=== PATIENT | male | born 1945 | race Caucasian/White ===

== ENCOUNTER → 2016-11-27 | Outpatient (CLI) | payer BC ==
[2016-03-07 13:18] VITALS: BP 108/67; PULSE 80
[~2016-11-27] MED LIST: ASPI-435 PO; CALC-279 PO; CHOL200010 PO; CLC100X PO; LEUP1INJ15 IM; PROT1POW7 PO; PSYL55.43 PO
[2016-11-27 13:45] VITALS: BP 137/80; PULSE 71; TEMP 36.7; O2SAT 92
--- NOTE | 2016-11-27 15:22 | Radiation Oncology Follow-Up ---
Radiation Oncology Follow-Up Date of Visit Nov 27, 2016. Reason For Visit Six-month follow-up Radiation Completion Date Salvage - 01/31/16 Diagnosis (1) MALIGN NEOPL PROSTATE Status: Resolved Onset Date: 10/30/2012 Location: both lobes of the prostate Histology Subtype: adenocarcinoma Stage: lll Permanent Comment: Rising PSA. Pretreatment PSA 6.09 Status post ultrasound-guided biopsies biopsy stage T2c Angelito grade 3+3 Status post retropubic radical prostatectomy 03/23/2013 Pathologic stage pT3a NXM0 Angelito grade 4+3 Hormone suppression for 6 months Status post completion of salvage radiation therapy made 2015 received 7020 cGy Last Edited By: Daniela Jasso on Nov 27, 2016 15:21 History of Present Illness Mr. Hammond is a 70-year-old gentleman who was noted to have a rise in PSA on July 15, 2012. His PSA value was 5.65. He also has a history of enlarged prostate gland and therefore the PSA was repeated on August 18, 2012 and remained elevated at 6.09. The patient was sent for evaluation to Dr. Ángel Florian. There was no family history of prostate cancer. Because of the rise in PSA a biopsy was recommended. On October 30, 2012 Dr. Florian proceeded with ultrasound-guided biopsies. A total of 20 biopsies were taken. 3 biopsies from the left base, left apex and the single biopsy from the left anterior was negative for malignancy. Three biopsies were taken from the left midgland, 2 of which were positive for adenocarcinoma, Angelito grade 3 + 3, involving 10% and 25% of the core length respectfully. No perineural or lymphovascular invasion was identified. Three biopsies from the right base and right mid and one biopsy from the right anterior were negative for malignancy. Three biopsies from the right apex were taken, 2 of which were positive for adenocarcinoma, Speer grade 3 + 3, involving 10% and 10% respectfully with no perineural or lymphovascular invasion identified. Two foci of atypical prostatic acini were noted within biopsies from the left mid and right apex. Remaining biopsies showed benign prostate tissue. Case [id number]. The patient returned to discuss these findings with Dr. Florian. His estimated gland volume was 45 grams. Staging bone scan was performed on November 10, 2012. Areas of uptake were noted but were felt to be degenerative with no evidence of skeletal metastatic disease. Dr. Florian arranged for this patient to discuss treatment options with Dr. Barron discussing robotic radical prostatectomy and asked us to see the patient in referral to discuss the role of radiation. Ultimately he made a decision to undergo prostatectomy. He had a radical retropubic prostatectomy 03/23/2013. This revealed adenocarcinoma with a Angelito primary pattern of 4 and secondary pattern of 3. The portion of prosthetic involvement was 7%. The greatest dimension was 15 mm. There was focal extraprostatic extension. This is located at the right posterior lateral area. Margins were uninvolved. No lymphovascular invasion. There was perineural invasion. Stage [id number]. He has continued follow-up with Dr. Grady in [facility]. Follow-up PSAs have been through Dr. Leach's office. His PSA 10/19/2013 was less than 0.13. PSA 03/19/2014 less than 0.010. PSA 08/25/2014 was 0.025. The PSA on 12/28/2014 was 0.032. His PSA on 02/21/2015 was 0.064. The most recent PSA was 09/06/2015 and was 0.088. With the slow rise in PSA he has been referred back to our office to discuss salvage radiation therapy. He completed radiation therapy 01/31/2016 received 7020 cGy. Interim History He's been doing well over the past 6 months from urinary standpoint. He gave an AUA score of 3.5. He completed expanded prostate cancer index composite for clinical practice and gave a score of 2 of 12 and urinary incontinence symptoms. He gave a score of 0 12 in urinary irritation symptoms. He gave a score of 0 12 bowel symptoms. He gave a score of 3 of 12 and sexual symptoms. He gave a score of 0 12 and hormonal vitality symptoms. His total was 5 of 60. He feels that his urinary status was not change with urination. He had mild incontinence prior to treatment and this is unchanged. He has seen Dr. Florian in follow-up and in June had a PSA. This was less than 0.010. He was given hormonal suppression for total 6 months. He had no problems with fatigue. He is due for colonoscopy next year. Had a previous hemorrhoidectomy. He does have issues with constipation and therefore takes Metamucil on a regular basis. He was diagnosed with 8 bowel condition which she called [facility]. By taking Metamucil regularly has no difficulty with bowel movements. Allergies Coded Allergies: Gabapentin (Verified Allergy, Unknown, redness, tissue sloughing, 07/20/16 ) Home Medications Scheduled Aspirin (Aspirin 81), 1 TAB PO DAILY Cholecalciferol (Vitamin D), 1 CAP PO DAILY Docusate Sodium (Colace), 250 MG PO WM Protein (Whey Protein), 1 PKT PO DAILY Psyllium (Metamucil Powder), 1 DOSE PO BID Review of Systems Gastrointestinal: Symptoms: WNL, Constipation GI Comments: Constipation managed with colace and metamucil Oral: Symptoms: No Problems Respiratory: Symptoms: WNL Urinary: Symptoms: Nocturia Comments: Nocturia x 3-4, attributes to drinking a lot of H2O, See AUA & EPIC Skin: Symptoms: No Problems Physical Exam Vital Signs Date Time Temp Pulse Resp B/P Pulse Ox O2 Delivery O2 Flow Rate FiO2 11/27/16 13:45 36.7 71 16 137/80 92 Pain: Patient Pain Scale: 0 - 10 Initial Pain Intensity: 0.0 General Appearance: no apparent distress Eyes: normal inspection, EOMI ENT: normal ENT inspection, hearing grossly normal Respiratory/Chest: lungs clear, no respiratory distress, no accessory muscle use Cardiovascular: regular rate, rhythm, no gallop, no murmur Abdomen: non tender, soft, no organomegaly Anal / Rectum: Deferred. He is seen Dr. Florian in one month. Extremities: no pedal edema Neurologic/Psychiatric: no motor/sensory deficits, alert, normal mood/affect Skin: warm/dry Lymphatic: no adenopathy Laboratory Studies He had a PSA 07/09/2016 that was less than 0.010. Assessment & Plan Plan: He'll see Dr. Florian and have PSA in December. We reviewed his prior PSAs. We discussed the hormonal suppression and the effect on the PSA. We discussed continued follow-up and reason for digital rectal examination. He will be having a colonoscopy next year. We discussed secondary malignancies. He is going to take the Metamucil regularly. We asked him to return to our office in June. He can then alternate visits with our office and Dr. Florian. Total Time In Follow-Up I spent 25 minutes speaking to the patient performing examination. I spent 15 minutes reviewing information in completing this note. Copy To Ángel Florian MD; Pro,Fabian Coffman M.D.
== END | disposition home or self-care (01) ==
LOC: C.ONC 13:41
PROVIDERS: ATTEND Physician Assistant Medical
DX: Z08 Encounter for follow-up examination after completed treatment for malignant neoplasm (principal); Z92.3 Personal history of irradiation; Z85.46 Personal history of malignant neoplasm of prostate

== ENCOUNTER 2016-12-07 19:02 | Inpatient (IN) | payer BC, OTHER ==
[~2016-12-07] VITALS: Ht 185.4 cm; Wt 97.8 kg
[~2016-12-07 19:02] MED LIST changes: -CALC-279 PO; -LEUP1INJ15 IM
[2016-12-07 20:58] LABS: BASO % 0.3 %; BASO ABS # 0.02 K/uL (0-0.2); COMPLETE YES; HEMATOCRIT 42.6 % (42-52); IG% 0.1 %; LYMPH ABS # 0.62 K/uL (1.2-3.4); MEAN CELL VOLUME 89.5 fL (80-100); MEAN CORPUSCULAR HEMOGLOBIN 31.7 pg (25-34); MEAN CORPUSCULAR HGB CONC 35.4 g/dl (32-36); MONO % 3.8 %; NEUT % 86.8 %; PLATELET COUNT 164 K/uL (130-400); RED BLOOD COUNT 4.76 M/uL (4.7-6.1); WHITE BLOOD COUNT 7.73 K/uL (4.8-10.8)
[2016-12-07 21:16] LABS: URINE APPEARANCE CLEAR (CLEAR); URINE BILIRUBIN NEG (NEG); URINE COLOR YELLOW; URINE NITRITE NEG (NEG); URINE PH 7.5 (4.5-7.5); UROBILINOGEN NEG (NEG); ZZUR CULT IF INDIC CLEAN CATCH NO
[2016-12-07 21:20] LABS: MANUAL MICROSCOPIC REQUIRED? NO; REVIEW REQ? NO
[2016-12-07 21:23] LABS: BUN/CREATININE RATIO 16.9 (10-20); CALCIUM 9.2 mg/dl (8.5-10.1); CREATININE 0.86 mg/dl (0.60-1.40); POTASSIUM 3.8 mmol/L (3.5-5.1)
[2016-12-07 21:26] LABS: ALB/GLOB RATIO 1.3 (0.9-2)
--- NOTE | 2016-12-07 21:27 | DIAGNOSTIC IMAGING REPORT ---
ABDOMEN AND PELVIS CT WITHOUT CONTRAST CT DOSE: 572.11 mGy.cm HISTORY: Pain abd pain eval for obstruction TECHNIQUE: Multiaxial CT images of the abdomen and pelvis were performed without contrast. COMPARISON STUDY: 12/10/2009 FINDINGS: Lung bases are clear. Several stable hepatic hypodensities consistent with small cysts. Gastric distention considered moderate. Spleen is uniform. Kidneys negative for calcification or hydronephrosis. Findings suggesting a partial distal small bowel obstruction. Mild small bowel distention similar as compared to the prior study. Etiology again is unclear. Colonic bowel pattern is considered unremarkable. Trace amount of free fluid within the pelvic cul-de-sac. IMPRESSION: Partial distal small bowel obstruction similar in configuration to a study of 2009. 2. Etiology is thought entirely clear with no well-defined obstructing mass or lesion. 3. Normal colonic pattern. 4. Mild gastric distention Electronically signed by: Mike Fragoso M.D. 12/07/2016 9:26 PM Dictated Date/Time: 12/07/2016 9:20 PM
[2016-12-07] MEDS ORDERED: SODIUM CHLORIDE 0.9% 1000ML 1,000 ML IV STA (22:37)
[2016-12-07] MEDS ORDERED: ONDANSETRON INJ 2 MG/ML 2 ML VIAL IV PRN (22:45)
[2016-12-07] MEDS ORDERED: ACETAMINOPHEN IV 650 MG in EMPTY BAG 0 ML IV PRN (22:45)
[2016-12-07] MEDS ORDERED: MoRPHine SULFATE 2 MG/ML CARP IV PRN (22:45)
--- NOTE | 2016-12-07 23:09 | EMERGENCY ROOM VISIT NOTE ---
History Report prepared by Mamadou: Jaiden Cross Under the Supervision of: Dr. Colton Ragsdale M.D. First contact with patient: 20:35 Chief Complaint: ABDOMINAL PAIN Stated Complaint: ABD PAIN, HX OF BLOCKAGE Nursing Triage Summary: pt c/o discomfort in abd, pmhx of blockage History of Present Illness The patient is a 71 year old male who presents to the Emergency Room with complaints of worsening persistent abdominal pressure throughout the day. The patient was feeling bloated last night, which improved after he went for a walk. He woke up today and was feeling good. He ate breakfast without any problems. He also had a normal bowel movement. Later in the day he started to feel bloated again. He also notes that it feels like there is pressure in his abdomen. His symptoms worsened when he tried eating soup for dinner and he was only able to eat half a bowl. He hasn't passed gas since 1630 today. The patient came to the ED because he has a history of bowel obstruction 8 years ago. The patient denies vomiting, chest pain, shortness of breath, or problems urinating. Source of History: patient Onset: today Position: abdomen Symptom Intensity: moderate Quality: pressure Timing: other (persistent) Modifying Factors (Worsening): eating Associated Symptoms: No SOB, No chest pain, No urinary symptoms, No vomiting Review of Systems See HPI for pertinent positives & negatives. A total of 10 systems reviewed and were otherwise negative. Past Medical & Surgical Medical Problems: (1) Chest pain (2) Hemorrhoid (3) HYPERLIPIDEMIA NEC/NOS (4) Inguinal hernia (5) MALIGN NEOPL PROSTATE (6) Non-cardiac chest pain (7) SBO (small bowel obstruction) Surgical Problems: (1) H/O prostatectomy (2) S/P hemorrhoidectomy Family History Heart disease Social History Smoking Status: Never Smoker Drug Use: none Marital Status: Housing Status: lives with significant other Occupation Status: retired Current/Historical Medications Scheduled Aspirin (Aspirin 81), 1 TAB PO DAILY Cholecalciferol (Vitamin D), 1 CAP PO DAILY Docusate Sodium (Colace), 250 MG PO WM Protein (Whey Protein), 1 PKT PO DAILY Psyllium (Metamucil Powder), 1 DOSE PO BID Allergies Coded Allergies: Gabapentin (Verified Allergy, Unknown, redness, tissue sloughing, 12/07/16) Physical Exam Vital Signs Date Time Temp Pulse Resp B/P Pulse Ox O2 Delivery O2 Flow Rate FiO2 12/07/16 21:47 70 20 139/83 95 Room Air 12/07/16 20:21 69 20 160/92 93 Room Air 12/07/16 19:16 36.3 73 18 156/93 97 Room Air Physical Exam Constitutional: Vital signs reviewed. Eyes: Pupils are equal round reactive to light. Conjunctiva are noninjected. ENT: Pharynx is clear without erythema or exudate. Mucous membranes are moist. Neck supple without meningeal signs. Respiratory: Clear to auscultation bilaterally. Breath sounds are equal bilaterally. Cardiovascular: Regular rate and rhythm. No rubs or gallops. GI: Soft, slightly distended with mild epigastric tenderness. Bowel sounds are present. Musculoskeletal: No peripheral edema. No lower extremity tenderness. Integumentary: No cyanosis. Neurological: The patient is awake and alert. No focal deficits. Psychiatric: Normal affect. Medical Decision & Procedures ER Provider Diagnostic Interpretation: CT results as stated below per my review and radiologist interpretation. ABDOMEN AND PELVIS CT WITHOUT CONTRAST CT DOSE: 572.11 mGy.cm HISTORY: Pain abd pain eval for obstruction TECHNIQUE: Multiaxial CT images of the abdomen and pelvis were performed without contrast. COMPARISON STUDY: 12/10/2009 FINDINGS: Lung bases are clear. Several stable hepatic hypodensities consistent with small cysts. Gastric distention considered moderate. Spleen is uniform. Kidneys negative for calcification or hydronephrosis. Findings suggesting a partial distal small bowel obstruction. Mild small bowel distention similar as compared to the prior study. Etiology again is unclear. Colonic bowel pattern is considered unremarkable. Trace amount of free fluid within the pelvic cul-de-sac. IMPRESSION: Partial distal small bowel obstruction similar in configuration to a study of 2009. 2. Etiology is thought entirely clear with no well-defined obstructing mass or lesion. 3. Normal colonic pattern. 4. Mild gastric distention Electronically signed by: Mike Fragoso M.D. 12/07/2016 9:26 PM Dictated Date/Time: 12/07/2016 9:20 PM Laboratory Results 12/07/16 20:20 Red Blood Count 4.76, Mean Corpuscular Volume 89.5, Mean Corpuscular Hemoglobin 31.7, Mean Corpuscular Hemoglobin Concent 35.4, Mean Platelet Volume 11.0, Neutrophils (%) (Auto) 86.8, Lymphocytes (%) (Auto) 8.0, Monocytes (%) (Auto) 3.8, Eosinophils (%) (Auto) 1.0, Basophils (%) (Auto) 0.3, Neutrophils # (Auto) 6.71, Lymphocytes # (Auto) 0.62, Monocytes # (Auto) 0.29, Eosinophils # (Auto) 0.08, Basophils # (Auto) 0.02 12/07/16 20:20 Test 12/07/16 20:20 White Blood Count 7.73 K/uL (4.8-10.8) Red Blood Count 4.76 M/uL (4.7-6.1) Hemoglobin 15.1 g/dL (14.0-18.0) Hematocrit 42.6 % (42-52) Mean Corpuscular Volume 89.5 fL (80-100) Mean Corpuscular Hemoglobin 31.7 pg (25-34) Mean Corpuscular Hemoglobin Concent 35.4 g/dl (32-36) Platelet Count 164 K/uL (130-400) Mean Platelet Volume 11.0 fL (7.4-10.4) Neutrophils (%) (Auto) 86.8 % Lymphocytes (%) (Auto) 8.0 % Monocytes (%) (Auto) 3.8 % Eosinophils (%) (Auto) 1.0 % Basophils (%) (Auto) 0.3 % Neutrophils # (Auto) 6.71 K/uL (1.4-6.5) Lymphocytes # (Auto) 0.62 K/uL (1.2-3.4) Monocytes # (Auto) 0.29 K/uL (0.11-0.59) Eosinophils # (Auto) 0.08 K/uL (0-0.5) Basophils # (Auto) 0.02 K/uL (0-0.2) RDW Standard Deviation 39.7 fL (36.4-46.3) RDW Coefficient of Variation 12.2 % (11.5-14.5) Immature Granulocyte % (Auto) 0.1 % Immature Granulocyte # (Auto) 0.01 K/uL (0.00-0.02) Urine Color YELLOW Urine Appearance CLEAR (CLEAR) Urine pH 7.5 (4.5-7.5) Urine Specific [place] 1.020 (1.000-1.030) Urine Protein NEG (NEG) Urine Glucose (UA) NEG (NEG) Urine Ketones TRACE (NEG) Urine Occult Blood NEG (NEG) Urine Nitrite NEG (NEG) Urine Bilirubin NEG (NEG) Urine Urobilinogen NEG (NEG) Urine Leukocyte Esterase NEG (NEG) Anion Gap 7.0 mmol/L (3-11) Est Creatinine Clear Calc Drug Dose 97.0 ml/min Estimated GFR () 101.1 Estimated GFR (Non- 87.2 BUN/Creatinine Ratio 16.9 (10-20) Calcium Level 9.2 mg/dl (8.5-10.1) Total Bilirubin 0.4 mg/dl (0.2-1) Aspartate Amino Transf (AST/SGOT) 23 U/L (15-37) Alanine Aminotransferase (ALT/SGPT) 25 U/L (12-78) Alkaline Phosphatase 71 U/L (45-117) Total Protein 7.3 gm/dl (6.4-8.2) Albumin 4.1 gm/dl (3.4-5.0) Globulin 3.2 gm/dl (2.5-4.0) Albumin/Globulin Ratio 1.3 (0.9-2) Lipase 134 U/L (73-393) Laboratory results as reviewed by me. ECG Indication: abdominal pain Rate (beats per minute): 72 Rhythm: sinus rhythm Findings: 1st degree AV block, no acute ischemic change, no ectopy ED Course 2036: The patient was evaluated in room C2a. A complete history and physical exam was performed. 2139: Spoke with Dr. Hogan, [facility] Hospitalist. The patient will be evaluated. Medical Decision This is a 71-year-old male who presents with abdominal pain. Differential diagnosis includes bowel obstruction, partial bowel obstruction, abdominal mass , volvulus, gastritis, [place]. I did perform a limited focused review of portions of the patient's old chart on the electronic medical record. The patient has had no recent pertinent visits to this hospital. I did evaluate the patient as noted above. The patient is presenting with abdominal pressure and bloating. He has a prior history of obstruction. He denies any chest pain or shortness of breath. He has not been vomiting and did have a bowel movement earlier this morning. IV access was established. He declined any pain medicines or nausea medications. I did order and personally review the patient's 12-lead EKG as described above. I did order and review the patient's blood work as noted in the electronic medical record. I did order a CT of the abdomen and pelvis. I did review the images myself as well as the radiology report as described above. He does have a partial small bowel obstruction. He was started on IV fluids with normal saline. I did discuss the test results with the patient. He will be hospitalized for further care and evaluation. I did discuss the case with the hospitalist and porter sample case. Consults Time Called: 2129 Consulting Physician: Dr. Hogan, [facility]. Returned Call: [phone]: Spoke with Dr. Hogan, [facility]. The patient will be evaluated. Impression Primary Impression: Partial small bowel obstruction Scribe Attestation The scribe's documentation has been prepared under my direct and personally reviewed by me in its entirety. I confirm that the note above accurately reflects all work, treatment, procedures, and medical decision making performed by me. Departure Information Dispostion Being Evaluated By Hospitalist Referrals Fabian Leach M.D. (PCP) Patient Instructions My [facility]
[2016-12-07 23:20] VITALS: BP 148/80; PULSE 74; TEMP 36.8; O2SAT 94; Ht 185.4 cm; Wt 97.8 kg
[2016-12-08] MEDS: D5NSS + 20MEQ KCL 1,000 ML IV SCH ×3 (01:02→16:27)
--- NOTE | 2016-12-08 01:20 | HISTORY & PHYSICAL EXAMINATION ---
DATE OF ADMISSION: 12/07/2016 REASON FOR ADMISSION: Abdominal pain, partial SBO. HISTORY OF PRESENT ILLNESS: This is a 71-year-old male with a medical history of prostate cancer, post prostatectomy, hyperlipidemia, SBO in 2009. The patient was eating and having normal bowel movements earlier in the day. He developed discomfort midday and then progressive bloating and distention in addition to mild diffuse pain. He describes nausea without any vomiting. He has not had a bowel movement or passed gas since approximately 2:30 in the afternoon. The patient required surgery in 2009 due to his SBO, the exact reason was undetermined, it was suspected due to a volvulus. A CT in the Emergency Department did confirm partial SBO. The imaging was reported to be similar to his CT scan from 2009. PAST MEDICAL HISTORY: 1. Hypertension. 2. Hyperlipidemia. 3. Chronic constipation with chronic proctitis. 4. History of prostate CA with prostatectomy and radiation in 2012. MEDICATIONS: 1. ASA 81 mg daily. 2. Colace 250 mg daily. 3. Metamucil b.i.d. 4. Vitamin D 2000 units daily. 5. Whey protein powder daily. SOCIAL HISTORY: The patient does not smoke cigarettes. He drinks occasionally. 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 FAMILY HISTORY: Negative for CAD. REVIEW OF SYSTEMS: GENERAL: No fevers or rigors described. CARDIOVASCULAR: Denies chest pain, palpitations, PND, orthopnea. RESPIRATORY: Denies shortness of breath, productive cough or wheezing. GASTROINTESTINAL: Positive for abdominal pain and distention as above. All other systems reviewed and negative. PHYSICAL EXAMINATION: VITAL SIGNS: Blood pressure is 142/88, heart rate 69, respirations 20, temp 96, satting 95% on room air. GENERAL: This is a pleasant elderly male. He is awake, alert, oriented x3, in no distress. HEAD AND NECK: No JVD, bruits, thrush or icterus. HEART: S1, S2, regular, no murmurs. LUNGS: Clear to auscultation bilaterally. ABDOMEN: Distended. There is mild tenderness to palpation, the tenderness is diffuse. No rebound or guarding. EXTREMITIES: No clubbing, cyanosis or edema. NEUROLOGIC: He is ambulatory, maintains his coordination, does not exhibit any focal deficits. SKIN: Negative for rashes or ulcers. LABORATORY DATA: White count 7.7, hemoglobin 15, platelets 164. Sodium 139, potassium 3.8, chloride 103, CO2 of 29, BUN 15, creatinine 0.86, glucose 123. ASSESSMENT AND PLAN: 1. This is a 71-year-old male with a medical history of prostate cancer, hyperlipidemia and small-bowel obstruction requiring surgery in 2009, attributed to a volvulus. He presents with abdominal pain, distention and nausea. A CT obtained in the ER is suspicious for a partial small-bowel obstruction. The imaging is reported to be similar to a CT obtained in 2009 when he did require surgery. The patient will be admitted to the medical floor. We will keep him n.p.o. and provide him with IV hydration. We will consult surgery for the a.m. Morphine will be provided for pain, antiemetics have been provided. The patient has been informed that he may require an NGT, he is trying to avoid this at present. 2. Hyperlipidemia. We have held his home medications. 3. Chronic constipation with proctalgia. We will treat his pain as needed as he cannot take any p.o. medications at present. Total time for this admit including discussion with the patient and ER physician, review of the labs, meds, imaging and available records was 35 minutes. The patient is a full code, heparin prophylaxis has been provided.
[2016-12-08 06:14] LABS: PARTIAL THROMBOPLASTIN RATIO 1.1; PROTHROMBIN TIME (PATIENT) 11.1 SECONDS (9.0-12.0)
[2016-12-08] MEDS ORDERED: HEPARIN SOD 5000 UNIT/0.5 ML CARP SQ SCH (07:00)
[2016-12-08 07:04] VITALS: BP 112/68; PULSE 67; TEMP 36.9; O2SAT 96
[2016-12-08 08:10] VITALS: O2SAT 96
--- NOTE | 2016-12-08 10:49 | Surgery Consultation ---
Consultation Date of Consultation: Dec 08, 2016. Attending Physician: Tya Dozier MD, PhD History of Present Illness 71 y/o wm with a several day hx of abdominal pain and mild nausea/bloating. no emesis. had similar presentation in 2009 and underwent ex-lap for SBO at that time. CT shows pSBO. currently feeling better with minimal pain and no nausea. no bm since admission. Past Medical/Surgical History Medical Problems: (1) Acute chest pain Status: Acute (2) Partial small bowel obstruction Status: Acute Family History Heart disease Social History Smoking Status: Never Smoker Drug Use: none Marital Status: Housing Status: lives with significant other Occupation Status: retired Allergies Coded Allergies: Gabapentin (Verified Allergy, Unknown, redness, tissue sloughing, 12/07/16) Home Medications Scheduled Aspirin (Aspirin 81), 1 TAB PO DAILY Cholecalciferol (Vitamin D), 1 CAP PO DAILY Docusate Sodium (Colace), 250 MG PO WM Protein (Whey Protein), 1 PKT PO DAILY Psyllium (Metamucil Powder), 1 DOSE PO BID Current Inpatient Medications Current Inpatient Medications Medications (Trade) Dose Ordered Sig/Robe Route Start Time Stop Time Status Last Admin Dose Admin Heparin Sodium (Porcine) (Heparin Sq 5000 Unit/0.5ml) 5,000 unit Q8 SQ 12/08/16 07:00 01/07/17 06:59 12/08/16 07:52 5,000 UNIT Ondansetron HCl 4 mg 4 mg Q6H PRN IV 12/07/16 22:45 01/06/17 22:44 Potassium Chloride/Dextrose/ Sod Cl (D5nss + 20meq KCl) 1,000 ml @ 125 mls/hr Q8H IV 12/08/16 00:45 12/09/16 00:44 12/08/16 08:29 125 MLS/HR Morphine Sulfate 2 mg 2 mg Q3H PRN IV 12/07/16 22:45 12/21/16 22:44 Acetaminophen/ Empty Bag (Ofirmev IV/ Empty Iv Bag 100ml) 65 ml @ 260 mls/hr Q8H PRN IV 12/07/16 22:45 01/06/17 22:44 Review of Systems Abdomen: + nausea, + pain Physical Exam Date Time Temp Pulse Resp B/P Pulse Ox O2 Delivery O2 Flow Rate FiO2 12/08/16 08:10 96 Room Air 12/08/16 07:04 36.9 67 19 112/68 96 Room Air 12/07/16 23:20 36.8 74 18 148/80 94 Room Air 12/07/16 23:20 94 Room Air 12/07/16 23:11 69 20 142/88 96 12/07/16 21:47 70 20 139/83 95 Room Air 12/07/16 20:21 69 20 160/92 93 Room Air 12/07/16 19:16 36.3 73 18 156/93 97 Room Air General Appearance: no apparent distress Head: normocephalic, atraumatic Eyes: normal inspection, EOMI ENT: hearing grossly normal Neck: supple, no adenopathy Cardiovascular: regular rate, rhythm Abdomen/GI: non tender, soft, + pertinent finding (mild distension) Extremities/Musculoskelatal: normal inspection Neurologic/Psych: alert, oriented x 3 Skin: normal color, warm/dry Laboratory Results Last 24 Hours Test 12/07/16 20:20 12/08/16 05:35 White Blood Count 7.73 K/uL Red Blood Count 4.76 M/uL Hemoglobin 15.1 g/dL Hematocrit 42.6 % Mean Corpuscular Volume 89.5 fL Mean Corpuscular Hemoglobin 31.7 pg Mean Corpuscular Hemoglobin Concent 35.4 g/dl Platelet Count 164 K/uL Mean Platelet Volume 11.0 fL Neutrophils (%) (Auto) 86.8 % Lymphocytes (%) (Auto) 8.0 % Monocytes (%) (Auto) 3.8 % Eosinophils (%) (Auto) 1.0 % Basophils (%) (Auto) 0.3 % Neutrophils # (Auto) 6.71 K/uL Lymphocytes # (Auto) 0.62 K/uL Monocytes # (Auto) 0.29 K/uL Eosinophils # (Auto) 0.08 K/uL Basophils # (Auto) 0.02 K/uL RDW Standard Deviation 39.7 fL RDW Coefficient of Variation 12.2 % Immature Granulocyte % (Auto) 0.1 % Immature Granulocyte # (Auto) 0.01 K/uL Urine Color YELLOW Urine Appearance CLEAR Urine pH 7.5 Urine Specific [place] 1.020 Urine Protein NEG Urine Glucose (UA) NEG Urine Ketones TRACE Urine Occult Blood NEG Urine Nitrite NEG Urine Bilirubin NEG Urine Urobilinogen NEG Urine Leukocyte Esterase NEG Sodium Level 139 mmol/L Potassium Level 3.8 mmol/L Chloride Level 103 mmol/L Carbon Dioxide Level 29 mmol/L Anion Gap 7.0 mmol/L Blood Urea Nitrogen 15 mg/dl Creatinine 0.86 mg/dl Est Creatinine Clear Calc Drug Dose 97.0 ml/min Estimated GFR () 101.1 Estimated GFR (Non- 87.2 BUN/Creatinine Ratio 16.9 Random Glucose 123 mg/dl Calcium Level 9.2 mg/dl Total Bilirubin 0.4 mg/dl Aspartate Amino Transf (AST/SGOT) 23 U/L Alanine Aminotransferase (ALT/SGPT) 25 U/L Alkaline Phosphatase 71 U/L Total Protein 7.3 gm/dl Albumin 4.1 gm/dl Globulin 3.2 gm/dl Albumin/Globulin Ratio 1.3 Lipase 134 U/L Prothrombin Time 11.1 SECONDS Prothromb Time International Ratio 1.0 Activated Partial Thromboplast Time 28.0 SECONDS Partial Thromboplastin Ratio 1.1 Hepatitis C Antibody Screen NEG Assessment & Plan 1. partial small bowel obstruction symptoms controlled abdomen soft with minimal distension...no need for ngt currently will tx conservatively...IVF, NPO, recheck KUB tomorrow will follow along closely
--- NOTE | 2016-12-08 10:52 | Progress Note ---
Subjective Date of Service: Dec 08, 2016. Subjective Pt evaluation today including: conversation w/ patient, conversation w/ family , physical exam, chart review, lab review, review of studies, conversation w/ sourcing consultant, review of inpatient medication list Voiding: no voiding problems Up and walk, no nausea vomiting, no more abdominal pain, however still no passing gas or bowel movement, reported possible abdominal distention is better Problem List Medical Problems: (1) Acute chest pain Status: Acute (2) Partial small bowel obstruction Status: Acute Review of Systems Constitutional: No chills, No fatigue, No fever, No problem reported, No sweats , No weakness, No weight loss Eyes: No diplopia, No discharge, No eye pain, No redness, No worsening of vision ENT: No dental problems, No hearing loss, No nasal symptoms, No sore throat, No tinnitus, No trouble swallowing, No unusual epistaxis Respiratory: No cough, No dyspnea at rest, No dyspnea on exertion, No hemoptysis, No shortness of breath, No sputum, No wheezing Cardiac: No PND, No chest pain, No claudication, No edema, No orthopnea, No palpitations Abdomen: + constipation, No diarrhea, No nausea, No pain, No vomiting Musculoskeletal: No calf pain, No joint pain, No muscle pain, No swelling Male : No dysuria, No hematuria, No incontinence, No nocturia more than once/ night, No slowing stream, No urinary frequency Neurologic: No balance problems, No memory loss, No numbness/tingling, No paralysis, No vertigo, No weakness Psychiatric: No anhedonism, No anxiety, No depression symptoms, No insomnia, No substance abuse Heme: No abnormal bleeding/bruising, No clotting problems, No night sweats, No swollen lymph nodes Endo: No excessive thirst, No excessive urination, No fatigue Skin: No bleeding, No color change, No itch, No new/changing skin lesions, No rash Objective Vital Signs Date Time Temp Pulse Resp B/P Pulse Ox O2 Delivery O2 Flow Rate FiO2 12/08/16 08:10 96 Room Air 12/08/16 07:04 36.9 67 19 112/68 96 Room Air 12/07/16 23:20 36.8 74 18 148/80 94 Room Air 12/07/16 23:20 94 Room Air 12/07/16 23:11 69 20 142/88 96 12/07/16 21:47 70 20 139/83 95 Room Air 12/07/16 20:21 69 20 160/92 93 Room Air 12/07/16 19:16 36.3 73 18 156/93 97 Room Air Physical Exam General Appearance: WD/WN, no apparent distress Eyes: normal inspection, PERRL, EOMI, sclerae normal ENT: normal ENT inspection, hearing grossly normal, pharynx normal Neck: supple, no adenopathy, thyroid normal, no JVD, no carotid bruits, trachea midline Respiratory/Chest: chest non-tender, lungs clear, normal breath sounds, no respiratory distress, no accessory muscle use Cardiovascular: regular rate, rhythm, no edema, no gallop, no JVD, no murmur Abdomen: non tender, soft, no organomegaly, no pulsatile mass, + abnormal bowel sounds (decreased bowel sound, but is positive) Extremities: normal range of motion, non-tender, normal inspection, no pedal edema, no calf tenderness, normal capillary refill, pelvis stable 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, no motor/sensory deficits, alert, normal mood/affect, oriented x 3 Skin: normal color, warm/dry, no rash Lymphatic: no adenopathy Laboratory Results Last 24 Hours Test 12/07/16 20:20 12/08/16 05:35 White Blood Count 7.73 K/uL Red Blood Count 4.76 M/uL Hemoglobin 15.1 g/dL Hematocrit 42.6 % Mean Corpuscular Volume 89.5 fL Mean Corpuscular Hemoglobin 31.7 pg Mean Corpuscular Hemoglobin Concent 35.4 g/dl Platelet Count 164 K/uL Mean Platelet Volume 11.0 fL Neutrophils (%) (Auto) 86.8 % Lymphocytes (%) (Auto) 8.0 % Monocytes (%) (Auto) 3.8 % Eosinophils (%) (Auto) 1.0 % Basophils (%) (Auto) 0.3 % Neutrophils # (Auto) 6.71 K/uL Lymphocytes # (Auto) 0.62 K/uL Monocytes # (Auto) 0.29 K/uL Eosinophils # (Auto) 0.08 K/uL Basophils # (Auto) 0.02 K/uL RDW Standard Deviation 39.7 fL RDW Coefficient of Variation 12.2 % Immature Granulocyte % (Auto) 0.1 % Immature Granulocyte # (Auto) 0.01 K/uL Urine Color YELLOW Urine Appearance CLEAR Urine pH 7.5 Urine Specific [place] 1.020 Urine Protein NEG Urine Glucose (UA) NEG Urine Ketones TRACE Urine Occult Blood NEG Urine Nitrite NEG Urine Bilirubin NEG Urine Urobilinogen NEG Urine Leukocyte Esterase NEG Sodium Level 139 mmol/L Potassium Level 3.8 mmol/L Chloride Level 103 mmol/L Carbon Dioxide Level 29 mmol/L Anion Gap 7.0 mmol/L Blood Urea Nitrogen 15 mg/dl Creatinine 0.86 mg/dl Est Creatinine Clear Calc Drug Dose 97.0 ml/min Estimated GFR () 101.1 Estimated GFR (Non- 87.2 BUN/Creatinine Ratio 16.9 Random Glucose 123 mg/dl Calcium Level 9.2 mg/dl Total Bilirubin 0.4 mg/dl Aspartate Amino Transf (AST/SGOT) 23 U/L Alanine Aminotransferase (ALT/SGPT) 25 U/L Alkaline Phosphatase 71 U/L Total Protein 7.3 gm/dl Albumin 4.1 gm/dl Globulin 3.2 gm/dl Albumin/Globulin Ratio 1.3 Lipase 134 U/L Prothrombin Time 11.1 SECONDS Prothromb Time International Ratio 1.0 Activated Partial Thromboplast Time 28.0 SECONDS Partial Thromboplastin Ratio 1.1 Hepatitis C Antibody Screen NEG Assessment and Plan 71-year-old male admitted on 12/07/2016 because of small bowel obstruction which is partial small bowel obstruction which is partial , stable possible a little improving hx of prostate cancer, hx of small-bowel obstruction requiring surgery in 2009, Continue nothing by mouth, IV fluid, watch lytes, follow-up lacerations input A CT obtained in the ER is suspicious for a partial small-bowel obstruction. The imaging is reported to be similar to a CT obtained in 2009 when he did require surgery. T Continue Morphine will be provided for pain, antiemetics Hyperlipidemia/potential, stable continue current care GI and DVT prophylaxis is covered Discussed with patient and about care plan answer all questions Continued [facility] stay due to: multiple IV medications needed Discharge planning: home
[2016-12-08] MEDS ORDERED: PANTOprazole INJ 40 MG in SYRINGE 0 ML IV ONE (11:00)
[2016-12-08] MEDS: PANTOprazole INJ 40 MG in SYRINGE 0 ML IV SCH (11:40)
[2016-12-08 15:10] VITALS: BP 147/68; PULSE 68; TEMP 36.6; O2SAT 93
[2016-12-08 23:11] VITALS: BP 125/74; PULSE 68; TEMP 36.4; O2SAT 93
[2016-12-09 05:40] LABS: BASO % 0.5 %; BASO ABS # 0.02 K/uL (0-0.2); COMPLETE YES; EOS % 6.1 %; HEMATOCRIT 38.4 % (42-52); IG% 0.3 %; LYMPH ABS # 0.87 K/uL (1.2-3.4); MEAN CELL VOLUME 89.5 fL (80-100); MEAN CORPUSCULAR HEMOGLOBIN 30.8 pg (25-34); MEAN CORPUSCULAR HGB CONC 34.4 g/dl (32-36); MEAN PLATELET VOLUME 10.9 fL (7.4-10.4); MONO % 10.4 %; NEUT % 60.7 %; PLATELET COUNT 138 K/uL (130-400); RED BLOOD COUNT 4.29 M/uL (4.7-6.1); WHITE BLOOD COUNT 3.96 K/uL (4.8-10.8)
[2016-12-09 06:11] LABS: BUN/CREATININE RATIO 13.3 (10-20); CALCIUM 8.2 mg/dl (8.5-10.1); CREATININE 0.72 mg/dl (0.60-1.40); MAGNESIUM 2.2 mg/dl (1.8-2.4); POTASSIUM 4.2 mmol/L (3.5-5.1)
[2016-12-09 07:17] VITALS: BP 110/67; PULSE 68; TEMP 36.4; O2SAT 93
--- NOTE | 2016-12-09 08:39 | DIAGNOSTIC IMAGING REPORT ---
KUB CLINICAL HISTORY: small bowel obstruction obstruction COMPARISON STUDY: CT dated 12/07/2016 FINDINGS: Improved bowel pattern. No evidence for obstruction. Postoperative changes within the low soft tissue pelvic region. IMPRESSION: Normal nonobstructive bowel pattern. Electronically signed by: Mike Fragoso M.D. 12/09/2016 8:37 AM Dictated Date/Time: 12/09/2016 8:37 AM
--- NOTE | 2016-12-09 09:06 | Progress Note ---
Subjective Date of Service: Dec 09, 2016. Subjective Pt evaluation today including: conversation w/ patient, physical exam, chart review, lab review, review of studies, conversation w/ aerodynamic consultant, review of inpatient medication list Up and walk, has 2 bowel movement yesterday, no nausea vomiting, no abdominal pain Problem List Medical Problems: (1) Acute chest pain Status: Acute (2) Partial small bowel obstruction Status: Acute Review of Systems Constitutional: + fatigue, No chills, No fever, No problem reported, No sweats , No weakness, No weight loss Eyes: No diplopia, No discharge, No eye pain, No redness, No worsening of vision ENT: No dental problems, No hearing loss, No nasal symptoms, No sore throat, No tinnitus, No trouble swallowing, No unusual epistaxis Respiratory: No cough, No dyspnea at rest, No dyspnea on exertion, No hemoptysis, No shortness of breath, No sputum, No wheezing Cardiac: No PND, No chest pain, No claudication, No edema, No orthopnea, No palpitations Abdomen: No constipation, No diarrhea, No nausea, No pain, No vomiting Musculoskeletal: No calf pain, No joint pain, No muscle pain, No swelling Male : No dysuria, No hematuria, No incontinence, No nocturia more than once/ night, No slowing stream, No urinary frequency Neurologic: No balance problems, No memory loss, No numbness/tingling, No paralysis, No vertigo, No weakness Psychiatric: No anhedonism, No anxiety, No depression symptoms, No insomnia, No substance abuse Heme: No abnormal bleeding/bruising, No clotting problems, No night sweats, No swollen lymph nodes Endo: No excessive thirst, No excessive urination, No fatigue Skin: No bleeding, No color change, No itch, No new/changing skin lesions, No rash Objective Vital Signs Date Time Temp Pulse Resp B/P Pulse Ox O2 Delivery O2 Flow Rate FiO2 12/09/16 07:17 36.4 68 17 110/67 93 Room Air 12/08/16 23:11 36.4 68 18 125/74 93 Room Air 12/08/16 23:04 Room Air 12/08/16 15:45 Room Air 12/08/16 15:10 36.6 68 18 147/68 93 Room Air Physical Exam General Appearance: WD/WN, no apparent distress Eyes: normal inspection, PERRL, EOMI, sclerae normal ENT: normal ENT inspection, hearing grossly normal, pharynx normal Neck: supple, no adenopathy, thyroid normal, no JVD, no carotid bruits, trachea midline Respiratory/Chest: chest non-tender, lungs clear, normal breath sounds, no respiratory distress, no accessory muscle use Cardiovascular: regular rate, rhythm, no edema, no gallop, no JVD, no murmur Abdomen: normal bowel sounds, non tender, soft, no organomegaly, no pulsatile mass Extremities: normal range of motion, non-tender, normal inspection, no pedal edema, no calf tenderness, normal capillary refill, pelvis stable 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, no motor/sensory deficits, alert, normal mood/affect, oriented x 3 Skin: normal color, warm/dry, no rash Lymphatic: no adenopathy Laboratory Results Last 24 Hours Test 12/09/16 05:16 White Blood Count 3.96 K/uL Red Blood Count 4.29 M/uL Hemoglobin 13.2 g/dL Hematocrit 38.4 % Mean Corpuscular Volume 89.5 fL Mean Corpuscular Hemoglobin 30.8 pg Mean Corpuscular Hemoglobin Concent 34.4 g/dl Platelet Count 138 K/uL Mean Platelet Volume 10.9 fL Neutrophils (%) (Auto) 60.7 % Lymphocytes (%) (Auto) 22.0 % Monocytes (%) (Auto) 10.4 % Eosinophils (%) (Auto) 6.1 % Basophils (%) (Auto) 0.5 % Neutrophils # (Auto) 2.41 K/uL Lymphocytes # (Auto) 0.87 K/uL Monocytes # (Auto) 0.41 K/uL Eosinophils # (Auto) 0.24 K/uL Basophils # (Auto) 0.02 K/uL RDW Standard Deviation 40.5 fL RDW Coefficient of Variation 12.5 % Immature Granulocyte % (Auto) 0.3 % Immature Granulocyte # (Auto) 0.01 K/uL Sodium Level 144 mmol/L Potassium Level 4.2 mmol/L Chloride Level 112 mmol/L Carbon Dioxide Level 27 mmol/L Anion Gap 5.0 mmol/L Blood Urea Nitrogen 10 mg/dl Creatinine 0.72 mg/dl Est Creatinine Clear Calc Drug Dose 115.9 ml/min Estimated GFR () 108.8 Estimated GFR (Non- 93.9 BUN/Creatinine Ratio 13.3 Random Glucose 90 mg/dl Calcium Level 8.2 mg/dl Magnesium Level 2.2 mg/dl Assessment and Plan 71-year-old male admitted on 12/07/2016 because of small bowel obstruction which is partial small bowel obstruction which is partial , continue stable possible /improving hx of prostate cancer, hx of small-bowel obstruction requiring surgery in 2009, Continue nothing by mouth, IV fluid, watch lytes, follow-up surgery input We'll follow-up KUB results, possible can advance diet if surgeon agree, and then will go from there A CT obtained in the ER is suspicious for a partial small-bowel obstruction. The imaging is reported to be similar to a CT obtained in 2009 when he did require surgery. Continue Morphine for pain, and antiemetics as needed Hyperlipidemia/potential, stable continue current care GI and DVT prophylaxis is covered Discussed with patient and about care plan answer all questions Continued [facility] stay due to: multiple IV medications needed Discharge planning: home
[2016-12-09] MEDS: SODIUM CHLORIDE 0.9% 1000ML 1,000 ML IV SCH ×2 (09:10→19:24)
[2016-12-09] MEDS: ENOXAPARIN 40 MG/0.4 ML SYR SQ SCH (09:10)
--- NOTE | 2016-12-09 09:40 | Surgery Progress Note ---
Surgery Progress Note Date of Service Dec 09, 2016. Subjective feeling much better. pain resolved. +bm last night. less distension Objective Vital Signs: Date Time Temp Pulse Resp B/P Pulse Ox O2 Delivery O2 Flow Rate FiO2 12/09/16 07:17 36.4 68 17 110/67 93 Room Air 12/08/16 23:11 36.4 68 18 125/74 93 Room Air 12/08/16 23:04 Room Air 12/08/16 15:45 Room Air 12/08/16 15:10 36.6 68 18 147/68 93 Room Air General Appearance: no apparent distress Head: normocephalic Neck: supple Abdomen: non tender, non distended, soft Extremities: non-tender Laboratory Results: Results Past 24 Hours Test 12/09/16 05:16 Range/Units White Blood Count 3.96 4.8-10.8 K/uL Red Blood Count 4.29 4.7-6.1 M/uL Hemoglobin 13.2 14.0-18.0 g/dL Hematocrit 38.4 42-52 % Mean Corpuscular Volume 89.5 80-100 fL Mean Corpuscular Hemoglobin 30.8 25-34 pg Mean Corpuscular Hemoglobin Concent 34.4 32-36 g/dl Platelet Count 138 130-400 K/uL Mean Platelet Volume 10.9 7.4-10.4 fL Neutrophils (%) (Auto) 60.7 % Lymphocytes (%) (Auto) 22.0 % Monocytes (%) (Auto) 10.4 % Eosinophils (%) (Auto) 6.1 % Basophils (%) (Auto) 0.5 % Neutrophils # (Auto) 2.41 1.4-6.5 K/uL Lymphocytes # (Auto) 0.87 1.2-3.4 K/uL Monocytes # (Auto) 0.41 0.11-0.59 K/uL Eosinophils # (Auto) 0.24 0-0.5 K/uL Basophils # (Auto) 0.02 0-0.2 K/uL RDW Standard Deviation 40.5 36.4-46.3 fL RDW Coefficient of Variation 12.5 11.5-14.5 % Immature Granulocyte % (Auto) 0.3 % Immature Granulocyte # (Auto) 0.01 0.00-0.02 K/uL Sodium Level 144 136-145 mmol/L Potassium Level 4.2 3.5-5.1 mmol/L Chloride Level 112 98-107 mmol/L Carbon Dioxide Level 27 21-32 mmol/L Anion Gap 5.0 3-11 mmol/L Blood Urea Nitrogen 10 7-18 mg/dl Creatinine 0.72 0.60-1.40 mg/dl Est Creatinine Clear Calc Drug Dose 115.9 ml/min Estimated GFR () 108.8 Estimated GFR (Non- 93.9 BUN/Creatinine Ratio 13.3 10-20 Random Glucose 90 70-99 mg/dl Calcium Level 8.2 8.5-10.1 mg/dl Magnesium Level 2.2 1.8-2.4 mg/dl Assessment & Plan resolving SBO start liquids and advance as tolerated xray showing resolved sbo d/c planning if sharyn diet...doubt surgical intervention necessary
[2016-12-09] MEDS: PANTOprazole INJ 40 MG in SYRINGE 0 ML IV SCH (10:43)
[2016-12-09 14:55] VITALS: BP 114/71; PULSE 68; TEMP 36.4; O2SAT 93
[2016-12-09 23:06] VITALS: BP 136/73; PULSE 56; TEMP 36.6; O2SAT 96
[2016-12-10] MEDS: SODIUM CHLORIDE 0.9% 1000ML 1,000 ML IV SCH ×2 (05:16→13:49)
--- NOTE | 2016-12-10 07:18 | Surgery Progress Note ---
Surgery Progress Note Date of Service Dec 10, 2016. Subjective + feeling well sharyn liquids. no pain. Objective Vital Signs: Date Time Temp Pulse Resp B/P Pulse Ox O2 Delivery O2 Flow Rate FiO2 12/09/16 23:20 Room Air 12/09/16 23:06 36.6 56 18 136/73 96 Room Air 12/09/16 16:20 Room Air 12/09/16 14:55 36.4 68 18 114/71 93 Room Air 12/09/16 07:20 Room Air 12/09/16 07:17 36.4 68 17 110/67 93 Room Air General Appearance: no apparent distress Head: normocephalic, atraumatic Neck: supple, no adenopathy Abdomen: non tender, non distended, soft Extremities: non-tender, no pedal edema Assessment & Plan 12/10/16 continuing to do well clinically would try reg food today d/c planning 12/09/16 resolving SBO start liquids and advance as tolerated xray showing resolved sbo d/c planning if sharyn diet...doubt surgical intervention necessary resolving SBO start liquids and advance as tolerated xray showing resolved sbo d/c planning if sharyn diet...doubt surgical intervention necessary
[2016-12-10 08:01] VITALS: BP 122/80; PULSE 61; TEMP 36.6; O2SAT 94
[2016-12-10] MEDS: ENOXAPARIN 40 MG/0.4 ML SYR SQ SCH (08:42)
[2016-12-10 09:12] VITALS: O2SAT 94
--- NOTE | 2016-12-10 10:48 | Discharge Instructions ---
Discharge Instructions Date of Service Dec 10, 2016. Admission Reason for Admission: SBO Discharge Discharge Diagnosis / Problem: small bowel obstruction - almost certainly adhesional Discharge Goals Goal(s): Diagnostic testing, Therapeutic intervention Activity Recommendations Activity Limitations: resume your previous activity . Current Hospital Diet Patient's current hospital diet: Regular Diet Discharge Diet Recommended Diet: Regular Diet Pending Studies Studies pending at discharge: no Medical Emergencies . Who to Call and When: Medical Emergencies: If at any time you feel your situation is an emergency, please call 911 immediately. . Non-Emergent Contact Non-Emergency issues call your: Primary Care Provider . . "Provider Documentation" section prepared by Avery Lee. VTE Core Measure Inpt VTE Proph given/why not?: Enoxaparin (Lovenox)SQ
[2016-12-10] MEDS: PANTOprazole INJ 40 MG in SYRINGE 0 ML IV SCH (11:11)
[2016-12-10 15:40] VITALS: BP 122/80; PULSE 61; TEMP 36.6; O2SAT 94
[2016-12-10 16:14] VITALS: BP 137/80; PULSE 61; TEMP 36.6; O2SAT 95
--- NOTE | 2016-12-10 20:24 | Discharge Summary ---
Discharge Summary Date of Service Dec 10, 2016. 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 Discharge Instructions Please refer to the electronic Patient Visit Report (Discharge Instructions) for additional information.
== END 2016-12-10 21:41 | disposition home or self-care (01) | DRG 390 ==
LOC: ENRESERVTM → ENRESERVDT → C.EDB 19:03 → C.MSW 22:39
PROVIDERS: ADMIT Internal Medicine; ATTEND Family Medicine
DX: K56.5 Intestinal adhesions [bands] with obstruction (postinfection) (principal); K59.00 Constipation, unspecified; K62.89 Other specified diseases of anus and rectum; E78.5 Hyperlipidemia, unspecified; Z79.899 Other long term (current) drug therapy; Z79.82 Long term (current) use of aspirin; Z92.3 Personal history of irradiation; Z85.46 Personal history of malignant neoplasm of prostate; Z86.79 Personal history of other diseases of the circulatory system

== ENCOUNTER → 2017-01-01 | Outpatient (CLI) | payer BC ==
--- NOTE | 2017-01-09 06:28 | CODING QUERY MEDICAL NECESSITY ---
CQSUPPORTING DIAGNOSIS NEEDED A supporting diagnosis is required for the test/procedure performed on this patient in order for us to be reimbursed by the patient's insurance. Please provide a supporting diagnosis for the following test/procedure listed below next to the test name along with your signature. *If there is no additional diagnosis for this patient that would support the following test/procedure please document that below next to the test/procedure. Test(s)/Procedure(s) that require a supporting diagnosis: DOS 01/01/17 PROSTATE SPECIFIC TEST Provider Signature: Date: Thank you Iram John [employer] Once completed, please kindly fax back to [phone] For questions please call [phone]
== END | disposition home or self-care (01) ==
LOC: C.LABBC 08:05
PROVIDERS: ATTEND Urology
DX: Z00.00 Encounter for general adult medical examination without abnormal findings (principal); Z11.59 Encounter for screening for other viral diseases; R39.9 Unspecified symptoms and signs involving the genitourinary system; C61 Malignant neoplasm of prostate

== ENCOUNTER → 2017-03-15 | Outpatient (CLI) | payer BC ==
[2017-03-15 11:00] LABS: BASO % 0.7 %; BASO ABS # 0.03 K/uL (0-0.2); COMPLETE YES; EOS % 4.7 %; IG% 0.2 %; LYMPH % 16.5 %; LYMPH ABS # 0.73 K/uL (1.2-3.4); MEAN CELL VOLUME 91.5 fL (80-100); MEAN CORPUSCULAR HEMOGLOBIN 32.1 pg (25-34); MEAN CORPUSCULAR HGB CONC 35.1 g/dl (32-36); MEAN PLATELET VOLUME 11.4 fL (7.4-10.4); MONO % 10.8 %; NEUT % 67.1 %; PLATELET COUNT 170 K/uL (130-400); WHITE BLOOD COUNT 4.43 K/uL (4.8-10.8)
[2017-03-15 11:19] LABS: BLOOD UREA NITROGEN 16 mg/dl (7-18); BUN/CREATININE RATIO 16.8 (10-20); CARBON DIOXIDE 27 mmol/L (21-32); CHLORIDE 108 mmol/L (98-107); CHOLESTEROL 206 mg/dl (0-200); CREATININE 0.95 mg/dl (0.60-1.40); GLUCOSE 91 mg/dl (70-99); POTASSIUM 4.4 mmol/L (3.5-5.1); SODIUM 143 mmol/L (136-145); TRIGLYCERIDES 110 mg/dl (0-150); VERY LOW DENSITY LIPOPROT CALC 22 mg/dl
[2017-03-15 11:24] LABS: HDL CHOLESTEROL 52 mg/dl; LDL CHOLESTEROL CALCULATED 132 mg/dl
== END | disposition home or self-care (01) ==
LOC: C.LABBC 08:20
PROVIDERS: ATTEND Internal Medicine
DX: E78.5 Hyperlipidemia, unspecified (principal); C61 Malignant neoplasm of prostate

== ENCOUNTER → 2017-06-18 | Outpatient (CLI) | payer BC | END | disposition home or self-care (01) | LOC: C.LABBC 09:10 | PROVIDERS: ATTEND Physician Assistant Medical | DX: C61 Malignant neoplasm of prostate (principal) ==

== ENCOUNTER → 2017-06-25 | Outpatient (CLI) | payer BC ==
[2017-06-25 13:59] VITALS: BP 124/64; PULSE 68; TEMP 36.6; O2SAT 96
--- NOTE | 2017-06-25 16:02 | Radiation Oncology Follow-Up ---
Radiation Oncology Follow-Up Date of Visit Jun 25, 2017. Reason For Visit Annual follow-up Radiation Completion Date 01/31/16 Diagnosis (1) MALIGN NEOPL PROSTATE Status: Resolved Onset Date: 10/30/2012 Location: both lobes of the prostate Histology Subtype: adenocarcinoma Stage: lll Permanent Comment: Rising PSA. Pretreatment PSA 6.09 Status post ultrasound-guided biopsies biopsy stage T2c Angel[place] grade 3+3 Status post retropubic radical prostatectomy 03/23/2013 Pathologic stage pT3a NXM0 [place] grade 4+3 Hormone suppression for 6 months Status post completion of salvage radiation therapy 01/31/2016 received 7020 cGy Last Edited By: Daniela Jasso on Jun 25, 2017 15:41 History of Present Illness Mr. Hammond is a 70-year-old gentleman who was noted to have a rise in PSA on July 15, 2012. His PSA value was 5.65. He also has a history of enlarged prostate gland and therefore the PSA was repeated on August 18, 2012 and remained elevated at 6.09. The patient was sent for evaluation to Dr. Ángel Florian. There was no family history of prostate cancer. Because of the rise in PSA a biopsy was recommended. On October 30, 2012 Dr. Florian proceeded with ultrasound-guided biopsies. A total of 20 biopsies were taken. 3 biopsies from the left base, left apex and the single biopsy from the left anterior was negative for malignancy. Three biopsies were taken from the left midgland, 2 of which were positive for adenocarcinoma, Angelito grade 3 + 3, involving 10% and 25% of the core length respectfully. No perineural or lymphovascular invasion was identified. Three biopsies from the right base and right mid and one biopsy from the right anterior were negative for malignancy. Three biopsies from the right apex were taken, 2 of which were positive for adenocarcinoma, [place] grade 3 + 3, involving 10% and 10% respectfully with no perineural or lymphovascular invasion identified. Two foci of atypical prostatic acini were noted within biopsies from the left mid and right apex. Remaining biopsies showed benign prostate tissue. Case [id number]. The patient returned to discuss these findings with Dr. Florian. His estimated gland volume was 45 grams. Staging bone scan was performed on November 10, 2012. Areas of uptake were noted but were felt to be degenerative with no evidence of skeletal metastatic disease. Dr. Florian arranged for this patient to discuss treatment options with Dr. Braron discussing robotic radical prostatectomy and asked us to see the patient in referral to discuss the role of radiation. Ultimately he made a decision to undergo prostatectomy. He had a radical retropubic prostatectomy 03/23/2013. This revealed adenocarcinoma with a [place] primary pattern of 4 and secondary pattern of 3. The portion of prosthetic involvement was 7%. The greatest dimension was 15 mm. There was focal extraprostatic extension. This is located at the right posterior lateral area. Margins were uninvolved. No lymphovascular invasion. There was perineural invasion. Stage [id number]. He has continued follow-up with Dr. Grady in [facility]. Follow-up PSAs have been through Dr. Leach's office. His PSA 10/19/2013 was less than 0.13. PSA 03/19/2014 less than 0.010. PSA 08/25/2014 was 0.025. The PSA on 12/28/2014 was 0.032. His PSA on 02/21/2015 was 0.064. The most recent PSA was 09/06/2015 and was 0.088. With the slow rise in PSA he has been referred back to our office to discuss salvage radiation therapy. He completed radiation therapy 01/31/2016 received 7020 cGy. Interim History He has been doing well over this past year. He gave an AUA score of 4.5. Last year his score was 3.5. He completed and expanded prostate cancer index composite for clinical practice and gave a score of 1 of 12 and urinary incontinence symptoms. He gave a score of 0 of 12 urinary irritation symptoms. He gave a score of 0 of 12 and bowel symptoms. He gave a score of 2 of 12 and sexual symptoms. He gave a score of 0 of 12 and hormonal vitality symptoms. His total was 3 of 60. He has had recheck PSAs. His PSA 07/09/2016 was less than 0.010. On 01/31/2017 his PSA was less than 0.010. The PSA on was less than 0.010. He had a hemorrhoidectomy approximately 3 years ago. He states that intermittently he will have rectal bleeding. This is a bright red color and at times coagulated. He has been evaluated by the colorectal surgeon was diagnosed with proctology fugax. He states that he follows a bowel regimen to keep his bowels soft. He uses stool softeners and Metamucil. He has reviewed this with his primary care physician. Allergies Coded Allergies: Gabapentin (Verified Allergy, Unknown, redness, tissue sloughing, 12/07/16) Home Medications Scheduled Aspirin (Aspirin 81), 1 TAB PO DAILY Cholecalciferol (Vitamin D), 1 CAP PO DAILY Docusate Sodium (Colace), 250 MG PO WM Protein (Whey Protein), 1 PKT PO DAILY Psyllium (Metamucil Powder), 1 DOSE PO BID Review of Systems Gastrointestinal: Symptoms: WNL GI Comments: On Daily Metamucil and Colace Oral: Symptoms: No Problems Respiratory: Symptoms: WNL Urinary: Symptoms: WNL, Nocturia Comments: Nocturia x 3-4, see AUA & EPIC Skin: Symptoms: No Problems Physical Exam Vital Signs Date Time Temp Pulse Resp B/P (MAP) Pulse Ox O2 Delivery O2 Flow Rate FiO2 06/25/17 13:59 36.6 68 16 124/64 96 Fatigue: None General Appearance: no apparent distress Eyes: normal inspection, EOMI ENT: normal ENT inspection, hearing grossly normal Respiratory/Chest: lungs clear, no respiratory distress, no accessory muscle use Cardiovascular: regular rate, rhythm, no gallop, no murmur Abdomen: normal bowel sounds, non tender, soft, no organomegaly Anal / Rectum: Normal sphincter tone. No rectal masses no rectal bleeding. Prostate bed is flat. Extremities: no pedal edema Neurologic/Psychiatric: no motor/sensory deficits, alert, normal mood/affect Skin: warm/dry Laboratory Studies Test 06/18/17 09:18 Prostate Specific Antigen < 0.010 ng/ml (0.000-4.000) Assessment & Plan Plan: Continue with recheck PSAs every 6 months. He'll be seeing Dr. Florian in 6 months. Continue follow-up with his primary care physician. We discussed the intermittent rectal bleeding. We reviewed that he could have radiation proctitis. I recommended that he have a follow-up visit with his colorectal surgeon to discuss the intermittent bleeding. He takes a baby aspirin daily. He has been doing this on his own. This was not recommended by the primary care physician. I asked that he hold the aspirin for one week to see if the bleeding stops. He may want to restart and take this every other day. Today we reviewed his PSAs. An order was given for him to have PSA prior to his next visit. We asked him to return to our office in 1 year. He may call if he has any questions or concerns in the interim. Total Time In Follow-Up I spent 20 minutes speaking to the patient and performing his examination. I spent 20 minutes reviewing information completing this note. Copy To Aye Christianson M.D.; Ángel Florian MD; Fabian Leach M.D.
== END | disposition home or self-care (01) ==
LOC: C.ONC 13:55
PROVIDERS: ATTEND Physician Assistant Medical
DX: Z08 Encounter for follow-up examination after completed treatment for malignant neoplasm (principal); Z92.3 Personal history of irradiation; Z85.46 Personal history of malignant neoplasm of prostate

== ENCOUNTER → 2017-08-29 | Outpatient (CLI) | payer BC ==
--- NOTE | 2017-08-29 10:56 | DIAGNOSTIC IMAGING REPORT ---
CHEST 2 VIEWS ROUTINE CLINICAL HISTORY: COUGH COMPARISON STUDY: 07/12/2016 FINDINGS: The cardiac and mediastinal contours are normal. There is no evidence of focal pulmonary consolidation. There is no evidence of failure. No pleural effusions are visualized.[ IMPRESSION: No active disease in the chest. Electronically signed by: Juan Kohler M.D. 08/29/2017 10:55 AM Dictated Date/Time: 08/29/2017 10:55 AM
== END | disposition home or self-care (01) ==
LOC: C.RAD1850 10:22
PROVIDERS: ATTEND Physician Assistant
DX: R05 Cough (principal)

== ENCOUNTER → 2017-09-04 | Outpatient (CLI) | payer BC ==
[2017-09-04 10:52] LABS: BASO % 0.4 %; BASO ABS # 0.02 K/uL (0-0.2); COMPLETE YES; EOS % 5.4 %; IG% 0.2 %; LYMPH % 15.8 %; LYMPH ABS # 0.74 K/uL (1.2-3.4); MEAN CELL VOLUME 90.9 fL (80-100); MEAN CORPUSCULAR HEMOGLOBIN 32.3 pg (25-34); MEAN CORPUSCULAR HGB CONC 35.5 g/dl (32-36); MEAN PLATELET VOLUME 10.8 fL (7.4-10.4); MONO % 11.1 %; NEUT % 67.1 %; PLATELET COUNT 164 K/uL (130-400); RED BLOOD COUNT 4.62 M/uL (4.7-6.1); WHITE BLOOD COUNT 4.67 K/uL (4.8-10.8)
[2017-09-04 11:25] LABS: BLOOD UREA NITROGEN 14 mg/dl (7-18); BUN/CREATININE RATIO 17.5 (10-20); CALCIUM 8.9 mg/dl (8.5-10.1); CARBON DIOXIDE 27 mmol/L (21-32); CHLORIDE 105 mmol/L (98-107); CHOLESTEROL 207 mg/dl (0-200); CREATININE 0.81 mg/dl (0.60-1.40); GLUCOSE 92 mg/dl (70-99); SODIUM 139 mmol/L (136-145); TRIGLYCERIDES 68 mg/dl (0-150); VERY LOW DENSITY LIPOPROT CALC 14 mg/dl
[2017-09-04 11:30] LABS: CHOLESTEROL/HDL RATIO 3.4; HDL CHOLESTEROL 61 mg/dl; LDL CHOLESTEROL CALCULATED 132 mg/dl
== END | disposition home or self-care (01) ==
LOC: C.LABBC 08:28
PROVIDERS: ATTEND Internal Medicine
DX: E78.5 Hyperlipidemia, unspecified (principal)

== ENCOUNTER → 2017-10-04 | Day surgery (SDC) | payer BC ==
[2017-10-03 10:05] VITALS: Ht 185.4 cm; Wt 90.9 kg
[~2017-10-04] VITALS: Ht 185.4 cm; Wt 90.9 kg
[~2017-10-04] MED LIST changes: +ASPCH81X PO; -ASPI-435 PO; +ATROPINE SULFATE 0.1 MG/ML 5ML SYR IV PRN; -CHOL200010 PO; +CHOL20009 PO; -CLC100X PO; +DOCU250C11 PO; +EpHEDrine SULFATE INJ 50 MG/ML AMP IV PRN; +LIDOCAINE HCL 2% 2 ML VIAL (20MG/ML) ONE; +PROPOFOL IV EMULSION 10 MG/ML 20 ML VIAL IV ONE; -PROT1POW7 PO; +PSYL48.59 PO; -PSYL55.43 PO; +SODIUM CHLORIDE 0.9% 500ML 500 ML IV ONE
--- NOTE | 2017-10-04 08:59 | Endo History and Physical ---
History & Physical Date of Service: Oct 04, 2017. Chief Complaint: Rectal Bleeding Referring Physician: Dr. rEic Leach History of Present Illness Persistent rectal bleeding, s/p hemorrhoidectomy, s/p RT Past Medical History Arthritis, Cancer, Thrombophlebitis Past Surgical History Hx Cardiac Surgery: No Hx Internal Defibrillator: No Hx Pacemaker: No Hx Abdominal Surgery: Yes (INGUINAL HERNIA, BOWEL OBSTRUCTION EXPLOR. LAP) Hx of Implantable Prosthesis: No Hx Post-Op Nausea and Vomiting: No Hx Cancer Surgery: Yes (RADICAL PROSTATECTOMY) Hx Thoracic Surgery: No Hx Orthopedic: Yes (LAMINECTOMY, RT/LEFT SHOULDER ARTHROSCOPY) Hx Urinary Tract Surgery: No Family History None Social History Smoking Status: Never Smoker Hx Substance Use: No Hx Alcohol Use: Yes (OCCASIONALLY) Allergies Coded Allergies: Gabapentin (Verified Allergy, Unknown, redness, tissue sloughing, 10/04/17) TOPICAL GABAPENTIN ONLY/NEVER HAS TAKEN ORAL GABAPENTIN Current Medications Reported Home Medications Medications Dose Route/Sig Max Daily Dose Days Date Category Dose Instructions Aspirin Chewable (Aspirin) 81 Mg Chew 81 Mg PO QAM 10/03/17 Reported Vitamin D (Cholecalciferol) 2,000 Unit Tab 1 Tab PO QAM 10/03/17 Reported Docusate Sodium 250 Mg Cap 1 Dose PO WM 10/03/17 Reported 2 CAP WITH BREAKFAST 3 CAP WITH AFTERNOON AND DINNER Metamucil (Psyllium) 48.57 % Pow 1 Dose PO WM 10/03/17 Reported Vital Signs Weight (Kilograms): 90.91 Height (Feet): 6 Height (Inches): 1 Physical Exam General Appearance: WD/WN, no apparent distress Respiratory/Chest: Auscultation: breath sounds normal, no wheezing, no rales/crackles Cardiovascular: Heart Auscultation: RRR, no murmurs Assessment and Plan Colonoscopy today.
--- NOTE | 2017-10-04 10:20 | Discharge Instructions ---
Endoscopy Patient Instructions Date / Procedure(s) Performed Oct 04, 2017. Colonoscopy Allergy Information Coded Allergies: Gabapentin (Verified Allergy, Unknown, redness, tissue sloughing, 10/04/17) TOPICAL GABAPENTIN ONLY/NEVER HAS TAKEN ORAL GABAPENTIN Discharge Date / Findings Oct 04, 2017. Radiation proctitis Medication Instructions Stopped Medication(s): Aspirin stopped 10/02/17 Restart Stopped Medication(s): Restart all medications today Provider Instructions Activity Restrictions - No exercising or heavy lifting for 24 hours. - Do not drink alcohol the day of the procedure. - Do not drive a car or operate machinery until the day after the procedure. - Do not make any important decisions or sign important papers in 24 hours after the procedure. Following Day: - Return to full activity which may include returning to work/school. Diet Start your diet with liquids and light foods (jello, soup, juice, toast). Then eat your usual diet if not nauseated. Treatment For Common After Affects For mild abdominal pain, bloating, or excessive gas: - Rest - Eat lightly - Lie on right side Follow-Up Information Follow-up with Fabian Leach as scheduled Anesthesia Information What You Should Know You have had a procedure that required some medicine to reduce anxiety and discomfort. This treatment is called moderate sedation. After receiving the treatment, you may be sleepy, but you will be able to breathe on your own. The effects of the treatment may last for several hours. Follow these instructions along with Activity/Diet recommendations noted above: * Do NOT do anything where dizziness or clumsiness would be dangerous. * Rest quietly at home today, then you can be up and about tomorrow. * Have a responsible person stay with you the rest of today. * You may have had an I.V. today. If so, you may take the dressing off later today. Recommendations Call your doctor if: * Trouble breathing * Continuous vomiting for more than 24 hours * Temperature above 101 degrees * Severe abdominal pain or bloating * Pain not relieved by pain medicine ordered * There is increased drainage or redness from any incision * A large amount of rectal bleeding greater than 2-3 tablespoons. (If you had a polyp/s removed or have hemorrhoids, a small amount of blood - from the rectum is to be expected.) * You have any unanswered questions or concerns. IN THE EVENT OF A SERIOUS EMERGENCY, GO TO THE NEAREST EMERGENCY ROOM Your discharge instructions were prepared by provider Fabian Sin. Patient Instructions Signature Page Miguel Hammond Patient (or Guardian) Signature/Date: I have read and understand the instructions given to me by my caregivers. Caregiver/RN/Doctor Signature/Date: The above-named patient and/or guardian has received patient instructions on this date. + Original Patient Signature Page (only) stays with chart. Please make copy for patient.
--- NOTE | 2017-10-04 10:20 | GI REPORT ---
Procedure Date: 10/04/2017 9:16 AM Procedure: Colonoscopy Indications: High risk colon cancer surveillance: Personal history of colonic polyps, Last colonoscopy: June 2014, Incidental - Rectal bleeding Patient Profile: This is a 72 year old male with a history of proctalgia fugax and rectal bleeding that resolved after hemorrhoidectomy; also history of prostate cancer treated with prostatectomy and RT (completed 01/2016), now presents wtih persistent rectal bleeding with bowel movements. Medicines: Monitored Anesthesia Care Complications: No immediate complications. Estimated blood loss: None. Estimated Blood Loss: Estimated blood loss: none. Procedure: Pre-Anesthesia Assessment: - Prior to the procedure, a History and Physical was performed, and patient medications, allergies and sensitivities were reviewed. The patient's tolerance of previous anesthesia was reviewed. - ASA Grade Assessment: II - A patient with mild systemic disease. After I obtained informed consent, the scope was passed under direct vision. Throughout the procedure, the patient's blood pressure, pulse, and oxygen saturations were monitored continuously. The scope was introduced through the anus and advanced to the terminal ileum, with identification of the appendiceal orifice and IC valve. The colonoscopy was performed without difficulty. The patient tolerated the procedure well. The quality of the bowel preparation was excellent. The bowel preparation used was split dose MIralax. Findings: Localized moderate inflammation characterized by altered vascularity was found in the distal rectum. Coagulation for tissue destruction using argon plasma at 1.2 liters/minute and 30 guthrie was successful. 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 Treated with argon plasma coagulation (APC). - No specimens collected. - The colon was otherwise normal to the terminal ileum with retroflexed views of the ascending colon and rectum. Recommendation: - Repeat colonoscopy in 5 years for surveillance. - Discharge patient to home (with escort). Fabian Sin M.D. Fabian Sin MD 10/04/2017 10:19:31 AM This report has been signed electronically. Note Initiated On: 10/04/2017 9:16 AM I attest to the content of the Intraoperative Record and orders documented therein, exceptions below
--- NOTE | 2017-10-04 10:30 | Anesthesiology Progress Note ---
Anesthesia Post Op Note Date & Time Oct 04, 2017 at 10:30 Vital Signs Pain Intensity: 0 Vital Signs Past 12 Hours Date Time Temp Pulse Resp B/P (MAP) Pulse Ox O2 Delivery O2 Flow Rate FiO2 10/04/17 10:19 68 16 132/80 (97) 96 Room Air 10/04/17 10:04 36.5 57 16 110/69 (83) 94 Room Air 10/04/17 09:02 36.5 69 20 146/76 (99) 95 Room Air Notes Mental Status: alert / awake / arousable, participated in evaluation Pt Amnestic to Procedure: Yes Nausea / Vomiting: adequately controlled Pain: adequately controlled Airway Patency, RR, SpO2: stable & adequate BP & HR: stable & adequate Hydration State: stable & adequate Anesthetic Complications: no major complications apparent
[2017-10-04 10:34] VITALS: BP 142/88; PULSE 64; O2SAT 96
== END | disposition home or self-care (01) ==
LOC: C.GI 08:38
PROVIDERS: ATTEND Internal Medicine Gastroenterology
DX: K62.5 Hemorrhage of anus and rectum (principal); K62.7 Radiation proctitis; Z79.82 Long term (current) use of aspirin; Z86.010 Personal history of colon polyps; Z85.46 Personal history of malignant neoplasm of prostate

== ENCOUNTER 2017-10-18 11:26 | Emergency (ER) | payer BC ==
[~2017-10-18] VITALS: Ht 185.4 cm; Wt 92.0 kg
[~2017-10-18 11:26] MED LIST changes: -ATROPINE SULFATE 0.1 MG/ML 5ML SYR IV PRN; -EpHEDrine SULFATE INJ 50 MG/ML AMP IV PRN; -LIDOCAINE HCL 2% 2 ML VIAL (20MG/ML) ONE; -PROPOFOL IV EMULSION 10 MG/ML 20 ML VIAL IV ONE; -SODIUM CHLORIDE 0.9% 500ML 500 ML IV ONE
[2017-10-18 11:37] VITALS: TEMP 36.7; Ht 185.4 cm; Wt 92.0 kg
[2017-10-18 13:14] LABS: HEMATOCRIT 42.8 % (42-52); MEAN CELL VOLUME 90.9 fL (80-100); MEAN CORPUSCULAR HEMOGLOBIN 31.8 pg (25-34); MEAN PLATELET VOLUME 10.5 fL (7.4-10.4); PLATELET COUNT 161 K/uL (130-400); RED CELL DISTRIBUTION WIDTH CV 12.5 % (11.5-14.5); RED CELL DISTRIBUTION WIDTH SD 41.5 fL (36.4-46.3)
--- NOTE | 2017-10-18 13:15 | EMERGENCY ROOM VISIT NOTE ---
History Report prepared by Mamadou: David Cuellar Under the Supervision of: Dr. Dagoberto Drake M.D. First contact with patient: 12:36 Chief Complaint: BACK PAIN Stated Complaint: BACK PAIN History of Present Illness The patient is a 72 year old male who presents to the Emergency Room with complaints of intermittent left buttock and left leg pain starting this morning around 0900 which has been improving. He states that the pain was a 10/10 in severity. He states that he got out of bed this morning and went to turn down the thermostat and got a pain in the center of his left buttock, and it is radiating down his left leg. The patient states that movement makes the pain worse, and laying on his right side made the pain better while in the ambulance. He states that the pain feels like a jolt in his left buttock, and he denies any lower back pain. He reports that he additionally had similar pain 8 days ago and three days ago as well, and in between these episodes he has been doing fine. The patient states that he had a ruptured disc 40 years ago and had spinal surgery to repair it. The patient states that he has not taken any medications for the pain, and he has not taken any muscle relaxers. He reports that he has been urinating normally, and he has been having normal bowel movements. Source of History: patient Onset: 0900 Position: buttock (left), leg (left) Symptom Intensity: 1/10 Timing: intermittent, other (improving) Modifying Factors (Worsening): movement Modifying Factors (Relieving): other (laying on his right side) Associated Symptoms: No back pain Review of Systems See HPI for pertinent positives & negatives. A total of 10 systems reviewed and were otherwise negative. Past Medical & Surgical Medical Problems: (1) Chest pain (2) Hemorrhoid (3) HYPERLIPIDEMIA NEC/NOS (4) Inguinal hernia (5) MALIGN NEOPL PROSTATE (6) Non-cardiac chest pain (7) SBO (small bowel obstruction) Surgical Problems: (1) H/O prostatectomy (2) S/P hemorrhoidectomy Family History Heart disease Social History Smoking Status: Unknown if Ever Smoked Drug Use: none Marital Status: Housing Status: lives with significant other Occupation Status: retired Current/Historical Medications Scheduled Aspirin (Aspirin Chewable), 81 MG PO QAM Cholecalciferol (Vitamin D), 1 TAB PO QAM Docusate Sodium (Docusate Sodium), 1 DOSE PO WM Prednisone (Prednisone), 0 PO DAILY Psyllium (Metamucil), 1 DOSE PO WM Scheduled PRN Cyclobenzaprine Hcl (Flexeril), 10 MG PO TID PRN for Muscle Spasms Allergies Coded Allergies: Gabapentin (Verified Allergy, Unknown, redness, tissue sloughing, 10/18/17) TOPICAL GABAPENTIN ONLY/NEVER HAS TAKEN ORAL GABAPENTIN Physical Exam Vital Signs Date Time Temp Pulse Resp B/P (MAP) Pulse Ox O2 Delivery O2 Flow Rate FiO2 10/18/17 15:58 78 18 130/80 95 10/18/17 13:20 88 16 132/92 97 10/18/17 11:37 36.7 80 20 131/78 97 Room Air Physical Exam GENERAL: Patient is in no acute distress. HEENT: No acute trauma, normocephalic atraumatic, mucous membranes moist, no nasal congestion, no scleral icterus. NECK: No stridor, no adenopathy, no meningismus, trachea is midline. LUNGS: Clear to auscultation bilaterally, no wheeze, no rhonchi, breath sounds equal. HEART: Without murmurs gallops or rubs, regular rate and rhythm. ABDOMEN: Soft, nontender, bowel sounds positive, no hernias, no peritonitis. BACK: Nontender lumbar spine/musculature. EXTREMITIES: No cyanosis or edema, full range of motion of all the joints without pain or difficulty, no signs for acute trauma. NEUROLOGIC: Oriented x 3, no acute motor or sensory deficits, no focal weakness. 2/4 patellar tendon reflexes bilaterally. Absent Achilles reflexes bilaterally. SKIN: No rash, no jaundice, no diaphoresis. Medical Decision & Procedures ER Provider Diagnostic Interpretation: Radiology results as stated below per my review and radiologist interpretation: MRI OF THE LUMBAR SPINE WITHOUT IV CONTRAST CLINICAL HISTORY: Left leg pain. COMPARISON STUDY: Abdominal CT dated 12/07/2016. MRI of the lumbar spine dated 12/10/2012. TECHNIQUE: MRI of the lumbar spine is performed utilizing various T1 and T2-weighted sequences in the axial and sagittal planes. IV contrast was not administered for this examination. FINDINGS: Lumbar spine: Vertebral body height is maintained throughout the lumbar spine. There is minimal anterolisthesis at L3-L4 and minimal retrolisthesis at L5-S1. There is straightening of the lumbar lordosis. There are postoperative changes from laminectomy at L4 and L5. The remaining spinous processes and the transverse processes appear intact. No destructive bony lesion is seen. Chronic endplate change with endplate edema is noted at L4-L5. Anterior osteophytes are seen throughout. There is no evidence of spondylolysis. Intervertebral discs: Degenerative disc desiccation is seen throughout the lumbar spine. Moderate to severe loss of height is present at L4-L5 and L5-S1. Only mild loss of height is seen at the remaining lumbar levels. Spinal cord: The visualized spinal cord is normal in morphology and signal intensity. The conus medullaris terminates at the level of L1. The nerve roots of the cauda equina are normal in morphology. These are tethered at L3-L4. L1-L2: There is a small posterior disc bulge. In conjunction with hypertrophy of the ligamentum flavum there is minimal acquired compromise the central canal at this level. The minimum AP diameter measures 9.5 mm. The neural foramina are patent. There is bilateral subarticular stenosis. This may abut the exiting bilateral L1 nerve roots. L2-L3: There is broad-based posterior disc bulge. In conjunction with hypertrophy of the ligamentum flavum there is minimal acquired compromise the central canal at this level with a minimum AP diameter of 9 mm. Facet arthropathy causes minimal bilateral neural foraminal stenosis. L3-L4: There is broad-based posterior disc bulge with annular fissure. In conjunction with hypertrophy of the ligamentum flavum there is severe central canal stenosis at this level with a minimum AP diameter of 4 mm. This impinges on the transiting bilateral nerve roots. There is bilateral subarticular stenosis which also likely impinges on the exiting bilateral L3 nerve roots. The neural foramina appear clear. Facet arthropathy is of no confluence. L4-L5: The central canal is clear. Facet arthropathy causes mild bilateral neuroforaminal stenosis. L5-S1: The central canal is widely patent. A lateral disc bulge eccentric to the right likely impinges on the exiting right L5 nerve root. Facet arthropathy causes moderate to severe right and moderate left neural foraminal stenosis. Sacrum: The visualized sacrum is normal in morphology and signal intensity. Soft tissues: There is fatty atrophy of the paraspinous musculature. The retroperitoneal structures are grossly unremarkable but incompletely assessed. Susceptibility artifact from postoperative change is seen within the soft tissues posterior to the lumbar spine. IMPRESSION: 1. There are postoperative changes from laminectomy at L4-L5. No destructive bony lesion is seen. 2. Moderate to advanced lumbosacral spondylosis with severe central canal stenosis at L3-L4. See discussion for detailed level analysis. 3. Degenerative disc disease as above with significant endplate edema at L4-L5. Electronically signed by: Dagoberto Mcgowan M.D. 10/18/2017 3:41 PM Dictated Date/Time: 10/18/2017 2:58 PM Laboratory Results 10/18/17 13:00 10/18/17 13:00 Test 10/18/17 13:00 10/18/17 13:42 Red Blood Count 4.71 M/uL (4.7-6.1) Mean Corpuscular Volume 90.9 fL (80-100) Mean Corpuscular Hemoglobin 31.8 pg (25-34) Mean Corpuscular Hemoglobin Concent 35.0 g/dl (32-36) RDW Standard Deviation 41.5 fL (36.4-46.3) RDW Coefficient of Variation 12.5 % (11.5-14.5) Mean Platelet Volume 10.5 fL (7.4-10.4) Anion Gap 3.0 mmol/L (3-11) Est Creatinine Clear Calc Drug Dose 87.7 ml/min Estimated GFR () 100.4 Estimated GFR (Non- 86.6 BUN/Creatinine Ratio 15.8 (10-20) Calcium Level 8.8 mg/dl (8.5-10.1) Urine Color YELLOW Urine Appearance CLEAR (CLEAR) Urine pH 7.5 (4.5-7.5) Urine Specific [place] 1.019 (1.000-1.030) Urine Protein NEG (NEG) Urine Glucose (UA) NEG (NEG) Urine Ketones NEG (NEG) Urine Occult Blood NEG (NEG) Urine Nitrite NEG (NEG) Urine Bilirubin NEG (NEG) Urine Urobilinogen NEG (NEG) Urine Leukocyte Esterase NEG (NEG) Laboratory results reviewed by me. Medications Administered Medications (Trade) Dose Ordered Sig/Robe Route Start Time Stop Time Status Last Admin Dose Admin Prednisone (PredniSONE TAB) 60 mg NOW STAT PO 10/18/17 16:34 10/18/17 16:36 DC 10/18/17 16:45 60 MG ED Course 1236: The patient was evaluated in room C11. A complete history and physical exam was performed. 1553: I discussed the patient's case with David Falcon PA-C, and he reviewed the MRI. He feels that the patient can go home with something for the pain and spasms, and the patient can follow up in the office. 1634: Prednisone 60mg PO 1640: Reevaluated the patient, and he was doing well. Discussed results and discharge instructions: He verbalized understanding and agreement. The patient is ready for discharge. Medical Decision Differential diagnoses include: spinal stenosis, sciatica, muscle spasm, disc herniation, fracture, and UTI There is no leukocytosis or concerning anemia. No significant electrolyte abnormality or kidney failure. Urinalysis does not show hematuria and there is no infection. Lumbar spine MRI shows some chronic change, there is evidence for previous surgery, no fracture. Severe spinal stenosis was noted. The patient did not require anything for pain. His symptoms eventually resolved and he was able to walk, move and sit without difficulty. I discussed the case with the on-call spinal surgical service. They did review the MRI. The patient is to be discharged on prednisone and Flexeril. He will be seen in the outpatient office. The patient did receive a dose of oral prednisone here before discharge. He was encouraged to return for uncontrolled symptoms. Medication Reconcilliation Current Medication List: was personally reviewed by me Blood Pressure Screening Patient's blood pressure: Elevated blood pressure Blood pressure disposition: Elevated BP felt to be situational Consults Time Called: 1540 Consulting Physician: David Schulz PA-C Returned Call: 1553 I discussed the patient's case with David Falcon PA-C, and he reviewed the MRI. He feels that the patient can go home with something for the pain and spasms, and the patient can follow up in the office. Impression Primary Impression: Spinal stenosis Additional Impression: Sciatica Scribe Attestation The scribe's documentation has been prepared under my direction and personally reviewed by me in its entirety. I confirm that the note above accurately reflects all work, treatment, procedures, and medical decision making performed by me. Departure Information Dispostion Home / Self-Care Prescriptions Cyclobenzaprine Hcl (FLEXERIL) 10 Mg Tab 10 MG PO TID Y for Muscle Spasms, #12 TAB Prov: Dagoberto Drake M.D. 10/18/17 Prednisone (Prednisone) 20 Mg Tab 0 PO DAILY, #18 TAB 3 DAILY FOR 3 DAYS, THEN 2 DAILY FOR 3 DAYS, THEN 1 DAILY FOR 3 DAYS. Prov: Dagoberto Drake M.D. 10/18/17 Referrals Fabian Leach M.D. (PCP) Forms HOME CARE DOCUMENTATION FORM, IMPORTANT VISIT INFORMATION Patient Instructions My [facility] Additional Instructions flexeril 1 tab up to 3x per day for muscle spasm use prednisone as directed call and set up appt with the spinal surgeon return for uncontrolled symptoms avoid stooping, lifting and bending Problem Qualifiers
[2017-10-18 13:37] LABS: CALCIUM 8.8 mg/dl (8.5-10.1); CREATININE 0.86 mg/dl (0.60-1.40); POTASSIUM 4.6 mmol/L (3.5-5.1)
--- NOTE | 2017-10-18 15:43 | DIAGNOSTIC IMAGING REPORT ---
MRI OF THE LUMBAR SPINE WITHOUT IV CONTRAST CLINICAL HISTORY: Left leg pain. COMPARISON STUDY: Abdominal CT dated 12/07/2016. MRI of the lumbar spine dated 12/10/2012. TECHNIQUE: MRI of the lumbar spine is performed utilizing various T1 and T2-weighted sequences in the axial and sagittal planes. IV contrast was not administered for this examination. FINDINGS: Lumbar spine: Vertebral body height is maintained throughout the lumbar spine. There is minimal anterolisthesis at L3-L4 and minimal retrolisthesis at L5-S1. There is straightening of the lumbar lordosis. There are postoperative changes from laminectomy at L4 and L5. The remaining spinous processes and the transverse processes appear intact. No destructive bony lesion is seen. Chronic endplate change with endplate edema is noted at L4-L5. Anterior osteophytes are seen throughout. There is no evidence of spondylolysis. Intervertebral discs: Degenerative disc desiccation is seen throughout the lumbar spine. Moderate to severe loss of height is present at L4-L5 and L5-S1. Only mild loss of height is seen at the remaining lumbar levels. Spinal cord: The visualized spinal cord is normal in morphology and signal intensity. The conus medullaris terminates at the level of L1. The nerve roots of the cauda equina are normal in morphology. These are tethered at L3-L4. L1-L2: There is a small posterior disc bulge. In conjunction with hypertrophy of the ligamentum flavum there is minimal acquired compromise the central canal at this level. The minimum AP diameter measures 9.5 mm. The neural foramina are patent. There is bilateral subarticular stenosis. This may abut the exiting bilateral L1 nerve roots. L2-L3: There is broad-based posterior disc bulge. In conjunction with hypertrophy of the ligamentum flavum there is minimal acquired compromise the central canal at this level with a minimum AP diameter of 9 mm. Facet arthropathy causes minimal bilateral neural foraminal stenosis. L3-L4: There is broad-based posterior disc bulge with annular fissure. In conjunction with hypertrophy of the ligamentum flavum there is severe central canal stenosis at this level with a minimum AP diameter of 4 mm. This impinges on the transiting bilateral nerve roots. There is bilateral subarticular stenosis which also likely impinges on the exiting bilateral L3 nerve roots. The neural foramina appear clear. Facet arthropathy is of no confluence. L4-L5: The central canal is clear. Facet arthropathy causes mild bilateral neuroforaminal stenosis. L5-S1: The central canal is widely patent. A lateral disc bulge eccentric to the right likely impinges on the exiting right L5 nerve root. Facet arthropathy causes moderate to severe right and moderate left neural foraminal stenosis. Sacrum: The visualized sacrum is normal in morphology and signal intensity. Soft tissues: There is fatty atrophy of the paraspinous musculature. The retroperitoneal structures are grossly unremarkable but incompletely assessed. Susceptibility artifact from postoperative change is seen within the soft tissues posterior to the lumbar spine. IMPRESSION: 1. There are postoperative changes from laminectomy at L4-L5. No destructive bony lesion is seen. 2. Moderate to advanced lumbosacral spondylosis with severe central canal stenosis at L3-L4. See discussion for detailed level analysis. 3. Degenerative disc disease as above with significant endplate edema at L4-L5. Electronically signed by: Dagoberto Mcgowan M.D. 10/18/2017 3:41 PM Dictated Date/Time: 10/18/2017 2:58 PM
[2017-10-18 15:58] VITALS: BP 130/80; PULSE 78; O2SAT 95
[2017-10-18] MEDS ORDERED: CYCL10TA6 PO (16:38)
[2017-10-18] MEDS ORDERED: PRED20TA PO (16:38)
== END 2017-10-18 16:48 | disposition home or self-care (01) ==
LOC: EDBD 11:26 → C.EDC 11:28
DX: M48.07 Spinal stenosis, lumbosacral region (principal); M54.42 Lumbago with sciatica, left side; E78.5 Hyperlipidemia, unspecified; Z85.46 Personal history of malignant neoplasm of prostate; Z90.79 Acquired absence of other genital organ(s); Z79.82 Long term (current) use of aspirin; Z79.899 Other long term (current) drug therapy

== ENCOUNTER 2017-10-23 23:28 | Emergency (ER) | payer BC ==
[~2017-10-23] VITALS: Ht 185.4 cm; Wt 94.0 kg
[~2017-10-23 23:28] MED LIST changes: +CYCL10TA6 PO; +PRED20TA PO
[2017-10-23 23:41] VITALS: BP 145/79; PULSE 89; TEMP 36.6; O2SAT 98; Ht 185.4 cm; Wt 94.0 kg
[2017-10-24] MEDS ORDERED: HYDROmorphone INJ 1 MG/ML SYR IM STA (01:24)
[2017-10-24] MEDS ORDERED: KETOROLAC TROMETHAMINE 60 MG/2 ML VIAL IM STA (01:24)
[2017-10-24] MEDS ORDERED: OXYCODONE IR HOME PACK PO ONE (01:30)
[2017-10-24] MEDS ORDERED: DEXAMETHASONE **PF** INJ 10 MG/ML VIAL IM ONE (01:30)
[2017-10-24] MEDS ORDERED: OXYC1TAB3 PO (01:38)
--- NOTE | 2017-10-25 07:14 | EMERGENCY ROOM VISIT NOTE ---
History First contact with patient: 01:04 Chief Complaint: BACK PAIN Stated Complaint: BACK PAIN History of Present Illness The patient is a 72 year old male who presents to the Emergency Room with complaints of back pain primarily on the left side of his back radiating down his leg. The patient has had similar symptoms like this throughout the years, and was seen 5 days ago in this department. At that visit MRI was performed and showed spinal stenosis. The patient was referred to orthopedics, and did have an initial appointment with them a few days ago. The patient states that he has been doing well with steroids and muscle relaxers at home, but he twisted after using the bathroom, and now has worsening symptoms today. The patient is not able to lay down because of the pain which she rates a 10/10. He does not have a distinct trauma or fall to explain his symptoms. He is able to use the bathroom and is without saddle paresthesias. The patient has not had fever or chills. He does have an upcoming appointment again with orthopedics, but not for several days. Review of Systems More than 10 systems were reviewed and otherwise negative with the exception of history of present illness. Past Medical/Surgical History Medical Problems: (1) Chest pain (2) Hemorrhoid (3) HYPERLIPIDEMIA NEC/NOS (4) Inguinal hernia (5) MALIGN NEOPL PROSTATE (6) Non-cardiac chest pain (7) SBO (small bowel obstruction) Surgical Problems: (1) H/O prostatectomy (2) S/P hemorrhoidectomy Family History Heart disease Social History Smoking Status: Never Smoker Drug Use: none Marital Status: Housing Status: lives with significant other Occupation Status: retired Current/Historical Medications Scheduled Aspirin (Aspirin Chewable), 81 MG PO QAM Cholecalciferol (Vitamin D), 1 TAB PO QAM Docusate Sodium (Docusate Sodium), 1 DOSE PO WM Oxycodone Immediate Rel Tab (Roxicodone Ir), 1-2 TAB PO Q6 Prednisone (Prednisone), 0 PO DAILY Psyllium (Metamucil), 1 DOSE PO WM Scheduled PRN Cyclobenzaprine Hcl (Flexeril), 10 MG PO TID PRN for Muscle Spasms Physical Exam Vital Signs Date Time Temp Pulse Resp B/P (MAP) Pulse Ox O2 Delivery O2 Flow Rate FiO2 10/23/17 23:41 36.6 89 20 145/79 98 Room Air Physical Exam VITALS: Vitals are noted on the nurse's note and reviewed by myself. Vital signs stable. GENERAL: White male who appears very uncomfortable on examination. He is leaning over onto the emergency department bed for comfort. HEART: Regular rate and rhythm without murmurs gallops or rubs. LUNGS: Clear to auscultation bilaterally without wheezes, rales or rhonchi. No retractions or accessory muscle use. ABDOMEN: Positive normal bowel sounds x 4. Soft, nontender, without masses or organomegaly. No guarding or rebound tenderness. MUSCULOSKELETAL: No muscle atrophy, erythema, or edema noted. Tenderness is appreciated throughout the lower lumbar spine and bilateral SI joints with left greater than right tenderness noted. Neurovascular status is intact distally. No saddle paresthesias. Medical Decision & Procedures Medications Administered Medications (Trade) Dose Ordered Sig/Robe Route Start Time Stop Time Status Last Admin Dose Admin Ketorolac Tromethamine (Toradol Inj) 60 mg NOW STAT IM 10/24/17 01:24 10/24/17 01:26 DC 10/24/17 01:45 60 MG Dexamethasone Sodium Phosphate (Dexamethasone Inj Pf) 10 mg NOW ONCE IM 10/24/17 01:30 10/24/17 01:31 DC 10/24/17 01:46 10 MG Hydromorphone HCl (Dilaudid Inj) 1 mg NOW STAT IM 10/24/17 01:24 10/24/17 01:26 DC 10/24/17 01:46 1 MG Oxycodone HCl (Roxicodone Immediate Rel 5MG Home Pack) 1 homepack UD ONCE PO 10/24/17 01:30 10/24/17 01:31 DC 10/24/17 02:48 1 HOMEPACK ED Course Physical exam and history were performed. Nursing notes, EMR, and Medication List were personally reviewed. Patient appears to have back pain symptoms that were initially doing well, but have worsened over the past day. The patient has recently had MRI here at this facility. He does have orthopedic follow-up, and his primary concern today is for pain control. The patient does not appear to have cauda equina or acute surgical process. No recent trauma since the last MRI a few days ago. The patient was given a dose of IM Dilaudid, IM Toradol, and IM Decadron. He was monitored here in the department and did have improvement of his discomfort. He appears well for discharge home. I will give him a home pack and short continuation prescription of oxycodone for his discomfort. He is to keep his upcoming appointments. He was otherwise invited back to the ER with any new, worsening, or concerning symptoms. The chart was completed utilizing [employer] Speech Voice Recognition Software. Grammatical errors, random word insertions, pronoun errors, and incomplete sentences are an occasional consequence of this system due to software limitations, ambient noise, and hardware issues. Any formal questions or concerns about the content, text, or information contained within the body of this dictation should be directly addressed to the provider for clarification. . Medical Decision Differential diagnosis: Etiologies such as musculoskeletal, disc herniation, fracture, aortic disease, metastatic disease, cord compression, discitis, infection, renal colic, gastrointestinal, acute exacerbation of chronic back pain, sciatica, cauda equina, as well as others were entertained. Impression Primary Impression: Spinal stenosis Additional Impression: Back pain with sciatica Departure Information Dispostion Home / Self-Care Condition GOOD Prescriptions Oxycodone Immediate Rel Tab (ROXICODONE IR) 5 Mg Tab 1-2 TAB PO Q6 for Pain, #24 TAB Prov: Jorge Brannon PA-C 10/24/17 Forms HOME CARE DOCUMENTATION FORM, IMPORTANT VISIT INFORMATION Patient Instructions My [facility] Additional Instructions You were seen and evaluated today on an emergency basis only. This is not a substitute for, or an effort to provide, complete comprehensive medical care. It is not possible to recognize and treat all injuries or illnesses in a single emergency department visit. For this reason it is recommended that you followup with Orthopedics as scheduled for ongoing care and evaluation. For baseline pain relief you may alternate ibuprofen and acetaminophen every 4 hours for pain control. Take 600 mg ibuprofen (Advil) and then 4 hours later take 1000 mg acetaminophen (Tylenol). Do not take more than 3000 mg acetaminophen in a single day. Oxycodone (OxyIR) 5mg: Take ONE or TWO pills every SIX hours for breakthrough pain. Avoid alcohol, operating machinery or dangerous equipment, working on ladders or roofs, DRIVING, or situations where being under the influence may be dangerous. It is recommended to use an [id number] stool softener such as Colace, 100mg twice daily while taking this medication to avoid constipation. Continue steroids and muscle relaxers as previously prescribed You are welcome to return to the emergency department anytime with new, worsening, or concerning symptoms. Problem Qualifiers
== END 2017-10-24 02:49 | disposition home or self-care (01) ==
LOC: C.EDB 23:29
DX: M48.00 Spinal stenosis, site unspecified (principal); M54.42 Lumbago with sciatica, left side; E78.5 Hyperlipidemia, unspecified; C61 Malignant neoplasm of prostate; Z82.49 Family history of ischemic heart disease and other diseases of the circulatory system; Z79.82 Long term (current) use of aspirin

== ENCOUNTER 2017-11-18 09:52 | Inpatient (IN) | payer BC, OTHER ==
[2017-11-07 10:55] VITALS: BMI 26.0
--- NOTE | 2017-11-07 11:32 | PAT Medication Instructions ---
Service Date Nov 07, 2017. Current Home Medication List Acetaminophen (Tylenol), 500 MG PO Q12 Aspirin (Aspirin Chewable), 81 MG PO QAM Cholecalciferol (Vitamin D), 1 TAB PO QAM Docusate Sodium (Docusate Sodium), 1 DOSE PO WM Psyllium (Metamucil), 1 DOSE PO WM Medication Instructions For Your Scheduled Surgery - Hold the following medications per surgeon's instructions: Advil - Hold the following medications the morning of surgery: Cholecalciferol (Vitamin D), 1 TAB PO QAM Docusate Sodium (Docusate Sodium), 1 DOSE PO WM Psyllium (Metamucil), 1 DOSE PO WM - Take the following medications the morning of surgery with a sip of water OTHERWISE NOTHING TO EAT OR DRINK AFTER MIDNIGHT: Acetaminophen (Tylenol), 500 MG PO Q12 (may take if needed up to 4 hours prior to surgery) Aspirin (Aspirin Chewable), 81 MG PO QAM If you have any questions please call us at [phone] or [phone] or [phone]
[2017-11-07 12:51] LABS: BASO % 0.5 %; BASO ABS # 0.03 K/uL (0-0.2); EOS % 1.6 %; EOS ABS # 0.09 K/uL (0-0.5); HEMOGLOBIN 14.9 g/dL (14.0-18.0); LYMPH % 10.2 %; LYMPH ABS # 0.58 K/uL (1.2-3.4); MEAN CELL VOLUME 88.4 fL (80-100); MEAN CORPUSCULAR HEMOGLOBIN 31.4 pg (25-34); MEAN CORPUSCULAR HGB CONC 35.5 g/dl (32-36); MEAN PLATELET VOLUME 11.2 fL (7.4-10.4); MONO % 7.9 %; MONO ABS # 0.45 K/uL (0.11-0.59); NEUT % 79.8 %; NEUT ABS # 4.55 K/uL (1.4-6.5); PLATELET COUNT 169 K/uL (130-400); RED CELL DISTRIBUTION WIDTH CV 12.2 % (11.5-14.5)
[2017-11-07 13:49] LABS: CREATININE 0.8 mg/dl (0.60-1.40)
[2017-11-07 13:50] LABS: CALCIUM 8.9 mg/dl (8.5-10.1); POTASSIUM 4.5 mmol/L (3.5-5.1)
[~2017-11-18] VITALS: Ht 185.4 cm; Wt 89.8 kg
[2017-11-18] VITALS (8 sets, daily range): BP systolic 98–145; BP diastolic 58–92; PULSE 61–78; TEMP 36.3–37.3; O2SAT 95–100; Ht 185.4 cm; Wt 89.8 kg
[~2017-11-18 09:52] MED LIST changes: +ACET-1256 PO; +CEFAZOLIN 2000MG IV PUSH 15 ML IV SCH; -CYCL10TA6 PO; +LACTATED RINGER'S 1000ML 1,000 ML IV SCH; -PRED20TA PO
[2017-11-18] MEDS ORDERED: DEXAMETHASONE SOD INJ 4 MG/ML VIAL ONE (11:02)
[2017-11-18] MEDS ORDERED: PHENYLEPHRINE HCL INJ 10 MG/ML VIAL ONE (11:02)
[2017-11-18] MEDS ORDERED: EpHEDrine SULFATE INJ 50 MG/ML AMP ONE (11:02)
[2017-11-18] MEDS ORDERED: GLYCOPYRROLATE INJ 0.2 MG/ML VIAL ONE (11:02)
[2017-11-18] MEDS ORDERED: MIDAZOLAM HCL 1 MG/ML 2ML VIAL ONE (11:02)
[2017-11-18] MEDS ORDERED: FENTANYL CITRATE INJ 50 MCG/1 ML 2 ML VIAL ONE (11:02)
[2017-11-18] MEDS ORDERED: ONDANSETRON INJ 2 MG/ML 2 ML VIAL ONE (11:02)
[2017-11-18] MEDS ORDERED: NEOSTIGMINE METHYLSULFATE 1 MG/ML 10ML VIAL ONE (11:02)
[2017-11-18] MEDS ORDERED: SUCCINYLCHOLINE CHLORIDE 20 MG/ML 10 ML VIAL IV ONE (11:02)
[2017-11-18] MEDS ORDERED: LIDOCAINE HCL 2% 2 ML VIAL (20MG/ML) ONE (11:02)
[2017-11-18] MEDS ORDERED: PROPOFOL IV EMULSION 10 MG/ML 20 ML VIAL IV ONE ×2 (11:02→12:57)
--- NOTE | 2017-11-18 11:12 | History & Physical Bridge Note ---
H&P Re-Evaluation Bridge Note: I have examined the patient, reviewed the History & Physical and in the interval since the performance of the History & Physical I have noted the following changes of clinical significance: No changes noted
--- NOTE | 2017-11-18 11:13 | History and Physical ---
History & Physical Date Nov 18, 2017. Chief Complaint Back and leg pain History of Present Illness The patient is a 72 year old male with complaints of back and leg pain Past Medical/Surgical History Medical Problems: (1) Chest pain (2) Hemorrhoid (3) HYPERLIPIDEMIA NEC/NOS (4) Inguinal hernia (5) MALIGN NEOPL PROSTATE (6) Non-cardiac chest pain (7) SBO (small bowel obstruction) Surgical Problems: (1) H/O prostatectomy (2) S/P hemorrhoidectomy Additional History Hepatic Disease: No Endocrine Disorder: No Kidney Disease: No Hypertension: No Heart Disease: No Bleeding Tendencies: No Infectious Diseases: No Allergies Coded Allergies: Gabapentin (Verified Allergy, Unknown, redness, tissue sloughing, 11/18/17) TOPICAL GABAPENTIN ONLY/NEVER HAS TAKEN ORAL GABAPENTIN Home Medications Scheduled Acetaminophen (Tylenol), 500 MG PO Q12 Aspirin (Aspirin Chewable), 81 MG PO QAM Cholecalciferol (Vitamin D), 1 TAB PO QAM Docusate Sodium (Docusate Sodium), 1 DOSE PO WM Psyllium (Metamucil), 1 DOSE PO WM Physical Examination Skin: warm/dry, no rash Eyes: normal inspection, EOMI, sclerae normal ENT: normal ENT inspection, pharynx normal Head: normocephalic, atraumatic Neck: supple, no adenopathy, trachea midline Respiratory/Chest: lungs clear, normal breath sounds, no respiratory distress Cardiovascular: regular rate, rhythm, no edema, no murmur Abdomen / GI: normal bowel sounds, non tender Back: normal inspection Extremities: normal inspection, normal range of motion Neurologic/Psych: no motor/sensory deficits, alert, normal reflexes, oriented x 3 Diagnosis Lumbar spinal stenosis Plan of Treatment L3 4 decompression and fusion
[2017-11-18] MEDS ORDERED: HYDROmorphone INJ 0.5 MG/0.5 ML SYR IV PRN (11:30)
[2017-11-18] MEDS ORDERED: ATROPINE SULFATE 0.1 MG/ML 5ML SYR IV PRN (11:30)
[2017-11-18] MEDS ORDERED: EpHEDrine SULFATE INJ 50 MG/ML AMP IV PRN (11:30)
[2017-11-18] MEDS ORDERED: ONDANSETRON INJ 2 MG/ML 2 ML VIAL IV PRN ×2 (11:30→13:30)
[2017-11-18] MEDS ORDERED: PROMETHAZINE HCL INJ 6.25 MG in SODIUM CHLORIDE 0.9% 50ML 50 ML IV PRN (11:30)
[2017-11-18] MEDS ORDERED: FENTANYL CITRATE INJ 50 MCG/1 ML 2 ML VIAL IV PRN (11:30)
[2017-11-18] MEDS ORDERED: BACITRACIN 50000 UNIT VIAL ONE (11:40)
[2017-11-18] MEDS ORDERED: BUPIVACAINE/EPINEPHRINE 0.5% MPF 1:200,000 30 ML VIAL ONE (11:40)
[2017-11-18] MEDS ORDERED: HYDROmorphone INJ 2 MG/ML SYR/VIAL ONE (12:13)
--- NOTE | 2017-11-18 12:28 | Anesthesiology Progress Note ---
Anesthesia Post Op Note Date & Time Nov 18, 2017 at 12:28 Vital Signs Pain Intensity: 0 Vital Signs Past 12 Hours Date Time Temp Pulse Resp B/P (MAP) Pulse Ox O2 Delivery O2 Flow Rate FiO2 11/18/17 10:18 36.4 78 18 133/92 99 Room Air Notes Mental Status: alert / awake / arousable, participated in evaluation Pt Amnestic to Procedure: Yes Nausea / Vomiting: adequately controlled Pain: adequately controlled Airway Patency, RR, SpO2: stable & adequate BP & HR: stable & adequate Hydration State: stable & adequate Anesthetic Complications: no major complications apparent
[2017-11-18] MEDS ORDERED: ROCURONIUM BROMIDE 10 MG/ML 5 ML VIAL IV ONE (12:57)
[2017-11-18] MEDS ORDERED: DURASEAL DURAL SEALANT 5ML TOP ONE (13:06)
[2017-11-18] MEDS ORDERED: hydrOXYzine HCL 25 MG TAB PO PRN (13:30)
[2017-11-18] MEDS ORDERED: LORAZEPAM INJ 0.5 MG in SYRINGE 0 ML IV PRN (13:30)
[2017-11-18] MEDS ORDERED: ACETAMINOPHEN IV 100 ML IV PRN (13:30)
[2017-11-18] MEDS ORDERED: SOD PHOSPHATE/SOD BIPHOSPHATE ENEMA 132 ML BTL PR PRN (13:30)
[2017-11-18] MEDS ORDERED: DO NOT ADMINISTER PNEUMOCOCCAL VACCINE PRN (13:30)
[2017-11-18] MEDS ORDERED: MAGNESIUM HYDROXIDE SUSP 30 ML UDC PO PRN (13:30)
[2017-11-18] MEDS ORDERED: LORAZEPAM 0.5 MG TAB PO PRN (13:30)
[2017-11-18] MEDS ORDERED: FAMOTIDINE 20 MG TAB PO PRN (13:30)
[2017-11-18] MEDS ORDERED: BISACODYL 10 MG SUPP PR PRN (13:30)
[2017-11-18] MEDS ORDERED: NALOXONE HCL 0.4 MG/1 ML VIAL/CARP IV PRN ×2 (13:30)
[2017-11-18] MEDS ORDERED: SODIUM CHLORIDE 0.9% 1000ML 1,000 ML IV SCH (13:30)
[2017-11-18] MEDS ORDERED: ALUMINUM/MAGNESIUM SUSP 30 ML UDC PO PRN (13:30)
[2017-11-18] MEDS ORDERED: DO NOT ADMINISTER FLU VACCINE PRN (13:30)
[2017-11-18] MEDS ORDERED: CEFAZOLIN IV 2,000 MG in DEXTROSE 5% 50ML 50 ML IV SCH (13:30)
[2017-11-18] MEDS ORDERED: METOCLOPRAMIDE HCL INJ 5 MG/ML 2 ML VIAL IV PRN (13:30)
[2017-11-18] MEDS ORDERED: PROMETHAZINE HCL INJ 12.5 MG in SODIUM CHLORIDE 0.9% 50ML 50 ML IV PRN (13:30)
--- NOTE | 2017-11-18 13:30 | [facility] Operative Report ---
Operative Report Operative Date Nov 18, 2017. Pre-Operative Diagnosis Lumbar Spinal Stenosis Post-Operative Diagnosis Lumbar Spinal Stenosis Procedure(s) Performed #1 revision decompression medial facetectomies foraminotomies L2-3 L3 4. #2 posterior spinal fusion L3 4. #3 placed posterior instrumentation L3 4. #4 interbody fusion L3 4. #5 placement peek cage 12 x 22 mm at L3 4. #6 placement locally harvested morcellized autograft in the posterior lateral gutters. #7 placement infuse sponge sponge, mass graft the posterior gutters and osteo-lamp bone graft in the interbody space. Surgeon Dr. Farah Biology Department Chair Surgeon(s) Kasey Posey PA-C Estimated Blood Loss 160 ML Findings Severe spinal stenosis with spondylolisthesis. Evidence of dural ectasia along the left lateral recess. Specimens None per surgeon Anesthesia Type General Description of Procedure Patient was met with preoperatively case discussed all questions addressed. After informed consent obtained patient was taken to the operative suite underwent intubation and placed in a prone position on the Ap table on top of the Ammon frame. All bony prominences were well-padded the eyes inspected to ensure no external pressure placed upon them. This point the lumbar spine was prepped and draped in the normal sterile fashion. Sharp dissection assistance of Bovie cautery was performed onto an exposing the remaining lamina and transverse processes of L3 4. From a caudal to cephalad fashion a complete review laminectomy of L3 was performed as well as partial laminectomy of L2 addressing severe central lateral recess stenosis. I noted significant dural ectasia along the left 34 facet at the area of the previous decompression. This was repaired with DuraGen and DuraSeal. Pedicle screws were placed in L3- L4 bilaterally with the assistance of fluoroscopy and the processes jerrod placed. Through a transforaminal approach on the right a complete discectomy of L34 was performed endplates curetted to subcortical bleeding bone and a 12 x 22 mm peek cage filled with osteal bone graft tapped in position. Incision incision was copiously irrigated. The transverse processes of L3 and 4 bur to subcortical bleeding bone. Infuse collagen sponge, mass graft locally harvested morcellized autograft was placed in the posterior gutters. 15 round MEGHNA drain inserted. Incision was then closed with 1 Vicryl in the fascia 2-0 Vicryl subcutaneous tensely and 4-0 Monocryl for final skin closure Steri- Strips dressings placed. Patient will continue PACU stable condition. Patient with continued PACU in stable condition. Please note Kasey Adkins was present at the entire procedure involved in patient positioning complex portions of the surgery and final skin closure. I attest to the content of the Intraoperative Record and any orders documented therein. Any exceptions are noted below.
[2017-11-18] MEDS: HYDROmorphone HCL 0.5MG/ML 50 ML CASSETTE IV PRN ×3 (14:04→22:57)
--- NOTE | 2017-11-18 14:08 | DIAGNOSTIC IMAGING REPORT ---
LUMBAR SPINE 2 OR 3 VIEW HISTORY: 72 years-old Male L3-L4 DECOMPRESSION AND FUSION status post decompression and fusion at L3-L4 COMPARISON: Lumbar spine MR 10/18/2017 TECHNIQUE: 2 spot fluoroscopic images of the lumbar spine were obtained utilizing 15.8 seconds fluoroscopy time FINDINGS: Status post posterior decompression with interbody jerrod and screw fusion at L3-L4 with discectomy. There appears to be a few millimeters anterolisthesis L3 on L4 which is unchanged from comparison. Alignment is otherwise satisfactory. Multilevel intervertebral disc space narrowing and endplate spurring redemonstrated. IMPRESSION: Status post posterior decompression with discectomy and interbody jerrod and screw fusion at L3-L4 with unchanged alignment. The above report was generated using voice recognition software. It may contain grammatical, syntax or spelling errors. Electronically signed by: Eduardo Roman M.D. 11/18/2017 2:07 PM Dictated Date/Time: 11/18/2017 2:05 PM
--- NOTE | 2017-11-18 15:10 | Anesthesiology Progress Note ---
Anesthesia Post Op Note Date & Time Nov 18, 2017 at 15:10 Vital Signs Pain Intensity: 0 Vital Signs Past 12 Hours Date Time Temp Pulse Resp B/P (MAP) Pulse Ox O2 Delivery O2 Flow Rate FiO2 11/18/17 14:35 36.6 61 12 133/76 100 Nasal Cannula 4 11/18/17 14:25 62 12 133/75 99 Nasal Cannula 4 11/18/17 14:15 60 15 144/72 100 Nasal Cannula 4 11/18/17 14:05 65 14 146/76 100 Oxymask 10 11/18/17 13:55 76 19 127/79 100 Oxymask 10 11/18/17 13:46 36.8 81 16 151/80 99 Oxymask 10 11/18/17 10:18 36.4 78 18 133/92 99 Room Air Notes Mental Status: alert / awake / arousable, participated in evaluation Pt Amnestic to Procedure: Yes Nausea / Vomiting: adequately controlled Pain: adequately controlled Airway Patency, RR, SpO2: stable & adequate BP & HR: stable & adequate Hydration State: stable & adequate Anesthetic Complications: no major complications apparent
[2017-11-18] MEDS: SODIUM CHLORIDE 0.9% 1000ML 1,000 ML IV SCH (15:15)
[2017-11-18] MEDS: CEFAZOLIN IV 2,000 MG in SYRINGE 0 ML IV SCH (20:36)
[2017-11-18] MEDS: DOCUSATE SODIUM/SENNA 50/8.6MG TAB PO SCH ×2 (20:38→20:39)
[2017-11-19] VITALS (7 sets, daily range): BP systolic 102–143; BP diastolic 62–73; PULSE 69–75; TEMP 37–37.3; O2SAT 94–98
[2017-11-19] MEDS: SODIUM CHLORIDE 0.9% 1000ML 1,000 ML IV SCH ×2 (01:29→04:35)
[2017-11-19] MEDS: CEFAZOLIN IV 2,000 MG in SYRINGE 0 ML IV SCH (04:19)
[2017-11-19] MEDS ORDERED: HYDROmorphone INJ 0.5 MG/0.5 ML SYR IV PRN (06:00)
[2017-11-19] MEDS ORDERED: OXYCODONE HCL IR 5 MG TAB (IMMEDIATE RELEASE) PO PRN (06:00)
[2017-11-19] MEDS ORDERED: DC PCA ONE (06:00)
[2017-11-19] MEDS ORDERED: NURSING VERBAL MED ORDER ONE (06:15)
[2017-11-19 07:04] LABS: BASO % 0.2 %; BASO ABS # 0.01 K/uL (0-0.2); EOS % 0.8 %; EOS ABS # 0.04 K/uL (0-0.5); HEMATOCRIT 31.9 % (42-52); HEMOGLOBIN 11.2 g/dL (14.0-18.0); IG# 0.02 K/uL (0.00-0.02); LYMPH % 9.7 %; LYMPH ABS # 0.51 K/uL (1.2-3.4); MEAN CELL VOLUME 89.6 fL (80-100); MEAN CORPUSCULAR HEMOGLOBIN 31.5 pg (25-34); MEAN CORPUSCULAR HGB CONC 35.1 g/dl (32-36); MEAN PLATELET VOLUME 10.5 fL (7.4-10.4); MONO % 13.7 %; MONO ABS # 0.72 K/uL (0.11-0.59); NEUT % 75.2 %; NEUT ABS # 3.95 K/uL (1.4-6.5); PLATELET COUNT 142 K/uL (130-400); RED CELL DISTRIBUTION WIDTH CV 12.3 % (11.5-14.5); RED CELL DISTRIBUTION WIDTH SD 40.5 fL (36.4-46.3); WHITE BLOOD COUNT 5.25 K/uL (4.8-10.8)
[2017-11-19 07:33] LABS: CALCIUM 7.8 mg/dl (8.5-10.1); CREATININE 0.8 mg/dl (0.60-1.40); POTASSIUM 4.1 mmol/L (3.5-5.1)
[2017-11-19] MEDS: ASPIRIN 81 MG CHEW PO SCH (08:06)
[2017-11-19] MEDS: ACETAMINOPHEN 500 MG TAB PO PRN (08:07)
--- NOTE | 2017-11-19 09:27 | Progress Note ---
Progress Note Date of Service Nov 19, 2017. Progress Note Patient's back pain is well-controlled. He denies any leg pain. Denies any nausea or vomiting or headaches. His good strength testing. Assessment status post lumbar decompression fusion. Plan at this time we'll maintain addressed today allow him to raise the head of bed up to 30 well eating. Pending his response we will initiate physical therapy tomorrow.
[2017-11-19] MEDS ORDERED: TRAMADOL HCL 50 MG TAB PO PRN (09:30)
[2017-11-19] MEDS ORDERED: ULT50X PO (12:19)
--- NOTE | 2017-11-19 12:20 | Discharge Instructions ---
Discharge Instructions Date of Service Nov 19, 2017. Admission Reason for Admission: Lumbar Spinal Stenosis Discharge Discharge Diagnosis / Problem: lumbar stenosis Discharge Goals Goal(s): Improve function Activity Recommendations Activity Limitations: per Instructions/Follow-up section . Instructions / Follow-Up Instructions / Follow-Up ACTIVITY RECOMMENDATIONS: SELF CARE INSTRUCTIONS AFTER THORACIC/LUMBAR FUSIONS 1. You may walk to your tolerance. It is good exercise for your legs and back. Expect some back and intermittent leg aches and pains. 2. You may perform "counter-top" level activities (make a sandwich, wilma with a project, etc.). 3. No bending or lifting of more than 10 pounds or back twisting of any nature (roll like a log when turning in bed). 4. You may ride in a car for 20-30 minutes at a time. No driving until after your first visit with your doctor. 5. Frequent changes of position and restricting sitting to 30 minutes at a time will help limit the amount of back spasms and stiffness you may experience. 6. You may discontinue the use of ambulatory aids (cane, crutches, etc.) once your strength and confidence allow. 7. You may nuclear criticality safety engineer the shower and let water strike your incision when you arrive home at least once daily. Do not take a tub bath, sit in a hot tub or go into a swimming pool until after your first recheck in the office. SPECIAL CARE INSTRUCTIONS: VERY IMPORTANT TO READ AND REVIEW A. Your surgical incision has been closed with a cosmetic suture under the skin that will dissolve in about 6 weeks. In 14 days, you can use a pair of clean scissors and cut the suture that is left outside of the skin at the ends of your incision. 1. The small skin tapes can be removed 7 days after surgery if they have not fallen off by that point. 2. You may keep the wound open to air as much as possible to promote healing after post-op day number 5 unless told otherwise by your doctor. 3. If you think the wound looks like it is becoming infected (redness or worsening drainage) and/or you are experiencing fever, chill or worsening back pain and muscle spasms, contact the office so that we may evaluate you as soon as possible. B. Complications are uncommon, but please contact us if you have any signs or symptoms of: 1. wound infection (fever higher than 102.5 degrees F, redness, separation of wound, drainage, or increasing pain from the incision) 2. blood clots in legs (pain, swelling, redness and warmth in legs) 3. urinary tract infection (fever higher than 102.5 degrees F, burning upon urination or increased frequency of urination) 4. nerve problems (inability to walk on your toes or heels, numbness, loss of bowel or bladder control) 5. any other symptoms that concern you C. Please call the office at if you have any concerns or questions about your operation or recovery. D. No smoking! Smoking drastically decreases the chance of a solid fusion. E. Do not take any anti-inflammatory medications (Indocin, Advil, Motrin, Aspirin, Naprosyn, etc.) as these may inhibit the chance of a solid fusion. Tylenol is okay to take for pain. MANAGING PAIN AFTER SPINAL SURGERY 1. Narcotic medication is intended for short-term use and will be provided for surgical pain. Surgical pain usually lasts for a period of 4-6 weeks. Narcotic medication includes Percocet, Vicodin, Darvocet, Tylenol #3 or Lortab. 2. Longer-term pain is more appropriately treated with non-narcotic medication such as Tylenol ES. 3. Muscle spasm is not appropriately treated with narcotics. Muscle relaxers such as Soma, Flexeril or Skelaxin can be used along with Tylenol ES. 4. Remember that we all live with some "aches and pains". This is not unusual or uncommon after an injury or as we get older. a. Back pain is expected and may include muscle spasms for 4 to 6 weeks after surgery. The pain should gradually improve. If the pain worsens for no apparent reason, please contact the office. b. Intermittent leg pain may also be experienced and should not be concerned about unless it worsens for no apparent reason. If so, please contact the office. 5. We will provide appropriate medication within the normal guidelines of their prescribed use. We will also be very cautious and aware of potential abuse and extended duration of patients' medication needs. a. Pain medications are for your comfort and to assist with sleep and rest so that the tissue can heal. They are not provided in order to return to normal activity and should not be used through the day. To do so or worsening pain at night can result from ongoing tissue damage and development of tolerance to the prescribed medicine. 6. Please allow 2-3 days to process refills. Prescriptions will not be mailed but must be picked up at the office. FOLLOW UP VISIT: Keep your scheduled follow-up appointment. Any questions, please call the office at . Current Hospital Diet Patient's current hospital diet: Regular Diet Discharge Diet Recommended Diet: Regular Diet Procedures Procedures Performed: #1 revision decompression medial facetectomies foraminotomies L2-3 L3 4. #2 posterior spinal fusion L3 4. #3 placed posterior instrumentation L3 4. #4 interbody fusion L3 4. #5 placement peek cage 12 x 22 mm at L3 4. #6 placement locally harvested morcellized autograft in the posterior lateral gutters. #7 placement infuse sponge sponge, mass graft the posterior gutters and osteo-lamp bone graft in the interbody space. Pending Studies Studies pending at discharge: no Laboratory Results Lipid Panel Test 09/04/17 08:31 Range/Units Triglycerides Level 68 0-150 mg/dl Cholesterol Level 207 H 0-200 mg/dl HDL Cholesterol 61 mg/dl Cholesterol/HDL Ratio 3.4 LDL Cholesterol, Calculated 132 mg/dl Medical Emergencies . Who to Call and When: Medical Emergencies: If at any time you feel your situation is an emergency, please call 911 immediately. . Non-Emergent Contact Non-Emergency issues call your: Primary Care Provider . "Provider Documentation" section prepared by Andriy Farah. . VTE Core Measure Inpt VTE Proph given/why not?: Hayes Dennis, [employer]ORE[employer]
--- NOTE | 2017-11-19 13:12 | Clinical Documentation Query ---
YOSI AndersonORY : CLINICAL DOCUMENTATION QUERY Patient underwent posterior lumbar decompression and interbody fusion. Preoperative H&H was 14.9 g/dl and 42%. POD #1, repeat values were 11.2% and 31.9%. Total blood losses to date are 485 ml's. Additionally, net I/O is positive 2,491 ml's. He is being monitored with serial hematology and I/O including drain outputs. Please clarify as clinically appropriate. Thank you. In your clinical opinion is this patient being managed for: ( x ) Acute blood loss and hemodilutional anemia ( ) Not Agree ( ) Other explanation of clinical findings (Please Explain) ( ) Unable to determine (Please Define) ( ) Need to Discuss The medical record reflects the following clinical findings, treatment, and risk factors. Clinical Indicators: As above Treatment: Serial hematology and I/O Risk Factors: Acute perioperative blood losses and IVF administration Please clarify and document your clinical opinion in the progress notes and discharge summary. Terms such as "probable", "suspected", "likely", "questionable", "possible", or "still to be ruled out" are acceptable. IF IN AGREEMENT, YOU MUST DOCUMENT ABOVE DIAGNOSTIC STATEMENT IN DAILY PROGRESS NOTES AND DISCHARGE SUMMARY. This document is not part of the patient's record. Thank You, Sha Zeng, LEA [phone]
[2017-11-19] MEDS: KETOROLAC TROMETHAMINE 15 MG/ML VIAL IV. PRN ×2 (13:33→20:42)
--- NOTE | 2017-11-19 15:56 | Anesthesiology Progress Note ---
Anesthesia Post Op Note Date & Time Nov 19, 2017 at 15:56 Vital Signs Vital Signs Past 12 Hours Date Time Temp Pulse Resp B/P (MAP) Pulse Ox O2 Delivery O2 Flow Rate FiO2 11/19/17 14:55 37.2 75 18 102/62 (75) 95 Room Air 11/19/17 10:48 37.1 71 18 123/63 (83) 95 Room Air 11/19/17 07:20 Room Air 11/19/17 06:57 37.0 75 18 143/69 (93) 94 Room Air Notes Mental Status: alert / awake / arousable, participated in evaluation Pt Amnestic to Procedure: Yes Nausea / Vomiting: adequately controlled Pain: adequately controlled Airway Patency, RR, SpO2: stable & adequate BP & HR: stable & adequate Hydration State: stable & adequate Anesthetic Complications: no major complications apparent
[2017-11-19] MEDS: DOCUSATE SODIUM/SENNA 50/8.6MG TAB PO SCH (21:34)
[2017-11-20] MEDS: KETOROLAC TROMETHAMINE 15 MG/ML VIAL IV. PRN ×2 (03:00→23:24)
[2017-11-20] MEDS: POLYETHYLENE (MIRALAX) 17 GM PACK PO SCH ×4 (05:09→23:23)
[2017-11-20 08:06] VITALS: BP 138/78; PULSE 68; TEMP 36.4; O2SAT 97
[2017-11-20 08:47] VITALS: O2SAT 97
--- NOTE | 2017-11-20 09:35 | Progress Note ---
Progress Note Date of Service Nov 20, 2017. Progress Note Back pain is controlled having some abdominal discomfort but positive flatus at this time. No headaches nausea or vomiting. No leg pain. On exam is good strength testing appears comfortable today. His abdomen is soft. Assessment status post lumbar decompression fusion. Plan this time we'll discontinue his drain this morning initiate bed to chair transfers with anticipating physical therapy tomorrow.
[2017-11-20] MEDS: ASPIRIN 81 MG CHEW PO SCH (09:47)
[2017-11-20 12:01] VITALS: BP 122/60; PULSE 79; TEMP 36.3; O2SAT 96
[2017-11-20 14:54] VITALS: BP 116/69; PULSE 77; TEMP 36.7; O2SAT 95
[2017-11-20] MEDS: ACETAMINOPHEN 500 MG TAB PO PRN (17:55)
[2017-11-20] MEDS: DOCUSATE SODIUM/SENNA 50/8.6MG TAB PO SCH (20:34)
[2017-11-20 22:51] VITALS: BP 135/73; PULSE 72; TEMP 36.6; O2SAT 95
[2017-11-21] MEDS: POLYETHYLENE (MIRALAX) 17 GM PACK PO SCH ×4 (05:47→23:49)
[2017-11-21 06:54] VITALS: BP 120/67; PULSE 81; TEMP 37; O2SAT 95
--- NOTE | 2017-11-21 07:56 | Progress Note ---
Progress Note Date of Service Nov 21, 2017. Progress Note Patient's back pain is controlled. Leg pain markedly improved. He tolerated ambulation well yesterday. He has not had a bowel movement as of yet. Positive flatus. Vital signs stable. On exam is good strength testing. Assessment status post lumbar decompression fusion. Plan this time we'll initiate formalized physical therapy advance his bowel regimen and anticipate home tomorrow.
[2017-11-21] MEDS: BISACODYL 10 MG SUPP PR ONE ×2 (08:15→10:01)
[2017-11-21] MEDS: ACETAMINOPHEN 500 MG TAB PO PRN (08:39)
[2017-11-21] MEDS: ASPIRIN 81 MG CHEW PO SCH (08:40)
[2017-11-21 15:14] VITALS: BP 121/70; PULSE 72; TEMP 36.7; O2SAT 95
[2017-11-21] MEDS: DOCUSATE SODIUM/SENNA 50/8.6MG TAB PO SCH (20:42)
[2017-11-21 23:05] VITALS: BP 126/60; PULSE 76; TEMP 36.9; O2SAT 95
[2017-11-22] VITALS (7 sets, daily range): BP systolic 108–124; BP diastolic 50–82; PULSE 69–77; TEMP 36.2–37.1; O2SAT 93–96
[2017-11-22] MEDS: POLYETHYLENE (MIRALAX) 17 GM PACK PO SCH (05:58)
[2017-11-22] MEDS ORDERED: NURSING VERBAL MED ORDER ONE (06:00)
[2017-11-22] MEDS: ASPIRIN 81 MG CHEW PO SCH (08:43)
--- NOTE | 2017-11-22 11:36 | Discharge Summary ---
Orthopedic Discharge Summary Admission Date/Reason Nov 18, 2017 at 11:30 Lumbar Spinal Stenosis. Discharge Date/Disposition Nov 22, 2017 Home Diagnosis Principal Diagnosis: Lumbar spinal stenosis Admission Physical Exam As per Admitting History & Physical. Hospital Course Patient underwent lumbar decompression fusion tolerated this well was taken to the orthopedic for postoperative. We did maintain bed rest for over 24 hours secondary to incidental durotomy. We then transition to ambulation and physical therapy. He tolerated this well. Bowels working well. Separately was discharged home. Discharge orders and instructions found on the chart for further review. Discharge Instructions Please refer to the electronic Patient Visit Report (Discharge Instructions) for additional information.
== END 2017-11-22 14:30 | disposition home or self-care (01) | DRG 454 ==
LOC: C.ACU 09:52 → C.3E 11:30 → ENRESERV 14:23
PROVIDERS: ADMIT Orthopaedic Surgery Orthopaedic Surgery of the Spine; ATTEND Orthopaedic Surgery Orthopaedic Surgery of the Spine
PROC: 0SG0071 Fusion of Lumbar Vertebral Joint with Autologous Tissue Substitute, Posterior Approach, Posterior Column, Open Approach (ICD-10-PCS; principal; 2017-11-18 12:00)
PROC: 0ST20ZZ Resection of Lumbar Vertebral Disc, Open Approach (ICD-10-PCS; principal; 2017-11-18 12:00)
PROC: 0SG00AJ Fusion of Lumbar Vertebral Joint with Interbody Fusion Device, Posterior Approach, Anterior Column, Open Approach (ICD-10-PCS; principal; 2017-11-18 12:00)
PROC: 00Q20ZZ Repair Dura Mater, Open Approach (ICD-10-PCS; principal; 2017-11-18 12:00)
PROC: 01NB0ZZ Release Lumbar Nerve, Open Approach (ICD-10-PCS; principal; 2017-11-18 12:00)
DX: M48.061 Spinal stenosis, lumbar region without neurogenic claudication (principal); G96.11 Dural tear; M43.16 Spondylolisthesis, lumbar region; Z79.899 Other long term (current) drug therapy; Z79.82 Long term (current) use of aspirin; Z86.718 Personal history of other venous thrombosis and embolism; Z85.46 Personal history of malignant neoplasm of prostate; Z88.8 Allergy status to other drugs, medicaments and biological substances; Y84.8 Other medical procedures as the cause of abnormal reaction of the patient, or of later complication, without mention of misadventure at the time of the procedure

== ENCOUNTER → 2018-01-22 | Outpatient (CLI) | payer BC ==
[~2018-01-22] MED LIST changes: -CEFAZOLIN 2000MG IV PUSH 15 ML IV SCH; -LACTATED RINGER'S 1000ML 1,000 ML IV SCH; +ULT50X PO
== END | disposition home or self-care (01) ==
LOC: C.LABBC 07:37
PROVIDERS: ATTEND Urology
DX: R39.9 Unspecified symptoms and signs involving the genitourinary system (principal)

== ENCOUNTER 2024-11-03 01:20 | Inpatient (IN) ==
--- NOTE | 2024-11-03 01:49 | Emergency Department Note ---
Impression & Plan SBO (small bowel obstruction) ED Provider Note Provider: Jabier Slaughter MD CHIEF COMPLAINT: Abdominal pain and nausea and vomiting HISTORY OF PRESENT ILLNESS: Patient is a 79-year-old gentleman past medical history including atrial flutter on Eliquis, inguinal hernia repair, bowel obstruction, and prostate cancer and surgery presenting here today with reporting onset gradually beginning around 8 PM of worsening abdominal pain and distention. She has had episodes of nausea and vomiting and feels like this is another intestinal blockage. Has been some years since his last 1. Does not believe that he has had his gallbladder or appendix removed. No trauma or syncope. No significant chest pain. Does feel like there is some acid in his throat. No meds prior to arrival. Did eat last around 3 PM but did take his evening medications including his Eliquis at 7 PM. Is not passing gas or having diarrhea. PAST MEDICAL HISTORY: As noted above MEDICATIONS: Reviewed home medications SOCIAL HISTORY: PHYSICAL EXAM: GENERAL: alert and oriented resting with eyes closed on the bed at bedside Head: normocephalic and atraumatic EYES: No injection, discharge or icterus. NECK: Trachea midline. ENT: Mucous membranes pink and moist. LUNGS: Airway patent. No retractions. Breath sounds clear HEART: Regular rate and rhythm. No chest wall tenderness ABDOMEN: Mild to moderately distended no guarding. Mild diffuse tenderness. No appreciable masses. SKIN: Acyanotic, warm, dry, without rashes EXTREMITIES: Without swelling, tenderness or deformity NEUROLOGICAL: No focal deficits. No aphasia. No facial droop or slurred speech. Ambulatory. EK bpm sinus rhythm first-degree AV block. No PVC or PAC. No acute ST segment elevation or depression with a QTc of 440. CONTINUOUS CARDIAC MONITORING: was ordered and showed a heart rate of 60s to 70s bpm in sinus rhythm first-grade heart block Patient's laboratory studies and imaging reviewed. Differential includes Appendicitis, testicular torsion, infections, diverticulitis, UTI, obstruction, mesenteric ischemia, aortic pathology, inflammatory bowel disease, renal colic, PUD, pancreatitis, biliary pathology, hernia, volvulus, constipation, as well as other pathologies. IMPRESSION/MEDICAL DECISION MAKING: Patient history of bowel obstruction in the past. Is on Eliquis last dose at 7 PM this evening. Basic blood work obtained. No significant chest pain but EKG obtained in addition to troponin. Seems likely GI related. As such a CT abdomen pelvis was ordered. Did not seem consistent with acute pancreatitis or hepatitis. No pain reported. Did not seem consistent with kidney stone. Obstruction highest on the list but could possibly represent appendicitis or diverticulitis. Blood work here without severe anemia or leukocytosis. No significant electrolyte abnormality or renal dysfunction. No evidence of acute hepatitis or pancreatitis. Troponin returns normal. Lactate normal. CT abdomen pelvis consistent with small bowel obstruction. Discussed with patient and at bedside. Not an extremis and symptoms somewhat improved. Discussed with patient NG tube placement however symptoms significantly proved not having nausea or pain at this time. Answered decision-making he wished to defer at this point. Did reach out to surgical PA who evaluated the patient here in the ER. Discussed with the hospitalist team for further inpatient care. DIAGNOSIS: Small bowel obstruction DISPOSITION: Hospitalist will evaluate as well as the general surgical team Past Med/Surg History Problem List (Updated 11/03/24 @ 04:25 by Jabier Slaughter M.D.) SBO (small bowel obstruction) (Acute) History of prostate cancer DX 2012 OR 2014/SX INTERVENTION & HX RADIATION. Small bowel obstruction Thrombocytopenia Carpal tunnel syndrome, right Ulnar neuropathy at elbow of right upper extremity Cervical radiculopathy Anemia, mild First degree atrioventricular block by electrocardiogram Anticoagulant long-term use BURKETT (dyspnea on exertion) Atrial flutter Tinnitus, bilateral Sensorineural hearing loss of both ears Lumbar stenosis with neurogenic claudication Hyperlipidemia (Acute) Vitamin D deficiency Prostate cancer (Chronic) Change in hearing Elevated vitamin B12 level Encounter for pre-operative examination Eczema Screening for colon cancer Medical History History of proctitis Degenerative disc disease Spinal stenosis Arthritis History of prostate cancer DX 2012 OR 2014/SX INTERVENTION & HX RADIATION. Macular degeneration History of blood clots "MANY YEARS AGO CAUSED FROM AN IV INSERTION">REQUIRED TO TAKE INJECTION FOR SHORT PERIOD OF TIME. Hx SBO Malignant neoplasm of prostate Biopsy stage T2c Angelito grade 3+3 Status post retropubic radical prostatectomy March 23, 2013 Pathologic stage [id number] Hamlin grade 4+3 Status post 6 months of hormone suppression Status post completion of salvage radiation therapy January 31, 2016. He received 7020 cGy Surgical History History of shoulder surgery RX1, LX1 History of left cataract surgery History of exploratory laparotomy History of right cataract surgery History of colonoscopy Fusion of spine LUMBAR FUSION History of surgery on lower extremity LEFT ACHILLES TENDON REPAIR History of lumbar laminectomy History of tonsillectomy History of detached retina repair ? SIDE S/P prostatectomy S/P inguinal hernia repair S/P hemorrhoidectomy Family History Father Emphysema, unspecified Mother Lung cancer Grandfather (Maternal) Coronary arteriosclerosis Grandmother Gastric cancer Other No family history of adverse response to anesthesia Denies family history of Colon cancer Ovarian cancer Prostate cancer Diabetes Myocardial infarction Breast cancer Social History Smoking Status: Never smoker Second Hand Exposure: No ( A CHILD); Do You Dip or Chew Tobacco: No; Hx Alcohol Use: No Hx Substance Use: No Preferred Language: Sami Communication Ability: Effective Visual Impairment: No Limitations Hearing Ability: Normal 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 Sosa Required: No Beliefs That Will Affect Care: None marital status: Current Living Situation: Spouse current occupational status: retired Feels Safe at Home: Yes Safety Concerns: Feels Safe At This Time Childhood Exposure to Second-Hand Smoke: Yes Dental Care, Regularly: Yes Physical Activity Frequency: 3-4 Times per Week Seatbelt Use: always Sunscreen Use: Yes Assistive Devices: None Allergies Allergies Allergy/AdvReac Type Severity Reaction Status Date / Time gabapentin AdvReac Unknown TOPICAL Verified 09/02/24 13:45 APPLICATION: redness, tissue sloughing Home Meds Home Medications Medication Instructions Recorded Confirmed docusate sodium 100 mg capsule 200 mg PO TIDM 02/27/19 11/03/24 psyllium husk 3.4 gram/5.4 gram 1 tbs PO BIDM 02/27/19 11/03/24 oral powder (Metamucil) cholecalciferol (vitamin D3) 50 6,000 unit PO QAM 12/08/21 11/03/24 mcg (2,000 unit) capsule vitamins A,C,C-szfo-cgeekf 4,296 1 cap PO BID 07/03/23 11/03/24 mcg-226 mg-90 mg capsule (ICaps AREDS) Previous Rx's Medication Instructions Recorded apixaban 5 mg tablet (Eliquis) 5 mg PO BID #60 tabs 06/23/24 Results & Data (ED) Vital Signs Vital Signs - 24 hr 11/03/24 01:22 11/03/24 01:44 11/03/24 02:00 Temperature 36.2 C L Temperature Source Temporal Artery Scan Pulse Rate 78 83 72 Pulse Rhythm Regular Respiratory Rate 16 20 Respiratory Effort / Characteristics Non-Labored Respiratory Depth Normal Blood Pressure 180/77 H 148/77 H Blood Pressure Mean 111 92 Pulse Oximetry 100 96 Oxygen Delivery Method Room Air Room Air Sepsis Recent Fever Within 48 Hours No Sepsis New/Unexplained Change in Mental Status No Sepsis Action Taken by Nursing No Action Required 11/03/24 02:30 11/03/24 03:00 11/03/24 03:30 Temperature Temperature Source Pulse Rate 70 71 64 Pulse Rhythm Respiratory Rate 15 18 13 Respiratory Effort / Characteristics Respiratory Depth Blood Pressure 139/87 144/76 H 163/83 H Blood Pressure Mean 109 88 127 Pulse Oximetry 96 95 94 Oxygen Delivery Method Room Air Room Air Room Air Sepsis Recent Fever Within 48 Hours Sepsis New/Unexplained Change in Mental Status Sepsis Action Taken by Nursing 11/03/24 04:00 11/03/24 04:30 Temperature Temperature Source Pulse Rate 64 71 Pulse Rhythm Respiratory Rate 17 15 Respiratory Effort / Characteristics Respiratory Depth Blood Pressure 145/78 H 153/82 H Blood Pressure Mean 102 105 Pulse Oximetry 92 94 Oxygen Delivery Method Room Air Room Air Sepsis Recent Fever Within 48 Hours Sepsis New/Unexplained Change in Mental Status Sepsis Action Taken by Nursing Laboratory Data 11/03/24 01:42 11/03/24 01:42 Lab Results 11/03/24 11/03/24 11/03/24 Range/Units 01:42 01:48 02:00 WBC 5.75 (4.8-10.8) K/ul RBC 4.44 L (4.70-6.10) M/uL Hgb 13.9 L (14.0-18.0) g/dl POC Hgb 12.6 L (14.0-18.0) g/dl Hct 39.2 L (42.0-52.0) % POC Hct 37 L (42-52) % MCV 88.3 (80.0-100.0) fL MCH 31.3 (25.0-34.0) pg MCHC 35.5 (32.0-36.0) g/dL RDW Std Deviation 41.7 (36.4-46.3) fL RDW Coeff of Janie 12.9 (11.5-14.5) % Plt Count 123 L (130-400) K/uL MPV 11.6 (9.4-12.4) fL Immature Gran % (Auto) 0.5 % Neut % (Auto) 84.1 % Lymph % (Auto) 7.1 % [place] % (Auto) 7.0 % Eos % (Auto) 1.0 % Baso % (Auto) 0.3 % Neut # (Auto) 4.83 (1.40-6.50) K/uL Lymph # (Auto) 0.41 L (1.20-3.40) K/uL [place] # (Auto) 0.40 (0.11-0.59) K/uL Eos # (Auto) 0.06 (0.00-0.50) K/uL Baso # (Auto) 0.02 (0.00-0.20) K/uL Immature Gran # (Auto) 0.03 (0.01-0.20) K/uL PT 10.9 (9.0-12.0) Seconds INR 1.0 (0.9-1.1) APTT 28 (21-31) Seconds PTT Ratio 1.0 Heparin Anti-Xa, Unfract 0.19 L (0.3-0.7) IU/ml POC Sodium 139 (135-144) mmol/L Sodium 139 (136-145) mmol/L POC Potassium 4.0 (3.3-5.0) mmol/L Potassium 3.9 (3.5-5.1) mmol/L POC Chloride 102 (101-112) mmol/L Chloride 102 (98-107) mmol/L Carbon Dioxide 29 (21-32) mmol/L POC Total CO2 26 (24-31) mmol/L Anion Gap 8 (3-11) POC Anion Gap 16.0 (16-25) mmol/L POC BUN 17 (7-18) mg/dl BUN 18 (6-23) mg/dl Creatinine 0.87 (0.6-1.4) mg/dl POC Creatinine 0.9 (0.6-1.3) mg/dl Est Cr Clr Drug Dosing 75.6 ml/min eGFR 87.77 BUN/Creatinine Ratio 20.7 H (10-20) Glucose 134 H (70-99(Fasting)) mg/dl POC Glucose (other) 136 H (70-99) mg/dl Lactate 1.2 (0.4-2.0) mmol/L Calcium 9.7 (8.6-10.3) mg/dl POC Ioniz Calcium Michael 1.12 (1.12-1.32) mmol/l Total Bilirubin 0.6 (0.2-1.0) mg/dl AST 25 (13-39) U/L ALT 20 (7-52) U/L Alkaline Phosphatase 54 (34-104) U/L Troponin I High Sens 9.4 (0-20) pg/ml Total Protein 7.1 (6.0-8.3) gm/dl Albumin 4.5 (3.4-5.0) gm/dl Globulin 2.6 (2.5-4.0) gm/dl Albumin/Globulin Ratio 1.7 (0.9-2) Lipase 22 (11-82) U/L SARS-CoV-2, RNA, NAAT NEGATIVE (NEGATIVE) Administered Medications Sodium Chloride (Nss) 1,000 mls @ 125 mls/hr IV .Q8H BROOKS Stop: 11/04/24 03:14 Last Admin: 11/03/24 04:19 Dose: 125 mls/hr Documented By: DEMI Discontinued Medications Ioversol (Optiray 320 100ml) 100 ml IV ONCE ONE Stop: 11/03/24 02:20 Last Admin: 11/03/24 02:19 Dose: 93 ml Documented By: JENNYFER Morphine Sulfate (Morphine Sulfate 4 Mg/Ml 1 Ml Carp\\Vial) 4 mg IV NOW STA Stop: 11/03/24 01:48 Last Admin: 11/03/24 01:53 Dose: 4 mg Documented By: LAUREN Ondansetron HCl (Ondansetron Inj 2 Mg/Ml 2 Ml Vial) 4 mg IV NOW STA Stop: 11/03/24 01:48 Last Admin: 11/03/24 01:53 Dose: 4 mg Documented By: LAUREN Imaging Data Radiologist's Impression: Abdomen/Pelvis CT 11/03/24 01:30 EXAM: CT abd pelvis IV con only CLINICAL HISTORY: abd pain, ?obstruction TECHNIQUE: Contiguous axial images were obtained from the level of the diaphragm to the pubic symphysis without and with intravenous contrast. Coronal and sagittal reconstructions were likewise performed and indicated to increase the sensitivity for detecting clinically relevant pathology. If IV contrast material had not been administered, the likelihood of detecting abnormalities relevant to the patient's condition would have been substantially decreased. CT scan was performed according to ALARA (as low as reasonable achievable). COMPARISON: 07 December 2016 FINDINGS: The visualized lung bases are clear. The liver is normal in size and attenuation. Stable hepatic cyst is noted involving right lobe of liver. There is no intra or extrahepatic biliary ductal dilatation. Hepatic vasculature is patent. The gallbladder is present. The spleen, pancreas, and adrenal glands are unremarkable. The kidneys are normal in size and attenuation. There is no hydronephrosis or perinephric fat stranding. No renal calculi or renal masses are identified. The ureters are normal in caliber and no ureteral calculi are seen. The bladder is normal in contour. Pelvic viscera are unremarkable. Evidence of multiple dilated jejunal and proximal mid ileal loops are noted involving mid and lower quadrant of abdomen with maximum diameter measures about 4.2 cm - suggest possibility of intestinal obstruction Possible transition point is noted involving right lower quadrant with collapsed distal ileal loops - suggest possibility of adhesion/band. The appendix is visualized in the right lower quadrant and appears within normal limits. Abdominal and pelvic vasculature is patent. No adenopathy or fluid collections are seen. No aggressive appearing osseous lesions are identified. Minimal ascites. IMPRESSION: 1. Evidence of multiple dilated jejunal and proximal mid ileal loops are noted involving mid and lower quadrant of abdomen with maximum diameter measures about 4.2 cm - suggest possibility of intestinal obstruction. However the same findings were noted in previous scan dated, 12/07/2016, Suggested clinical correlation and follow up as indicated. 2. The possible transition point is noted involving right lower quadrant with collapsed distal ileal loops - suggest possibility of adhesion/band. 3. Minimal ascites noted.-Minimally increased. 4. Stable hepatic cyst. Electronically signed by Osbaldo Barros 11-03-2024 03:19 AM Discharge Plan Visit Data Chief Complaint: Abdominal Pain Stated Complaint: SEVERE ABD PAIN,HX INSTESINAL BLOCKAGE,DISTENDED ED Provider: Jabier Slaughter Discharge Problem: SBO (small bowel obstruction) Patient Disposition: Being Evaluated by Hospitalist Discharge Instructions Interventions: ED Discharge Assessment Last Done: 11/03/24 06:02
[2024-11-03] MEDS: ONDANSETRON INJ 2 MG/ML 2 ML VIAL IV STA (01:53)
[2024-11-03] MEDS: MoRPHine SULFATE 4 MG/ML 1 ML CARP\\VIAL IV STA (01:53)
[2024-11-03 02:06] LABS: Basophils # (auto) 0.02 K/uL (0.00-0.20); Basophils % (auto) 0.3 %; Eosinophils # (auto) 0.06 K/uL (0.00-0.50); Hematocrit (blood only) 39.2 % (42.0-52.0); Hemoglobin 13.9 g/dl (14.0-18.0); Immature Granulocytes # (auto) 0.03 K/uL (0.01-0.20); Immature Granulocytes % (auto) 0.5 %; Lymphocytes # (auto) 0.41 K/uL (1.20-3.40); Lymphocytes % (auto) 7.1 %; Mean Corpuscular Hemoglobin 31.3 pg (25.0-34.0); Mean Corpuscular Hgb Conc 35.5 g/dL (32.0-36.0); Mean Corpuscular Volume 88.3 fL (80.0-100.0); Mean Platelet Volume 11.6 fL (9.4-12.4); Neutrophils # (auto) 4.83 K/uL (1.40-6.50); Neutrophils % (auto) 84.1 %; Platelet Count 123 K/uL (130-400); RDW Coefficient of Variation 12.9 % (11.5-14.5); RDW Standard Deviation 41.7 fL (36.4-46.3); Red Blood Count 4.44 M/uL (4.70-6.10); White Blood Count 5.75 K/ul (4.8-10.8)
[2024-11-03 02:13] LABS: iSTAT Creatinine 0.9 mg/dl (0.6-1.3); iSTAT Hemoglobin 12.6 g/dl (14.0-18.0); iSTAT Ionized Calcium 1.12 mmol/l (1.12-1.32)
[2024-11-03 02:15] LABS: Partial Thromboplastin Time 28 Seconds (21-31); Prothrombin Time 10.9 Seconds (9.0-12.0)
[2024-11-03] MEDS: OPTIRAY 320 100ml IV ONE (02:19)
[2024-11-03 02:25] LABS: Albumin Globulin Ratio 1.7 (0.9-2); Albumin Level 4.5 gm/dl (3.4-5.0); BUN Creatinine Ratio 20.7 (10-20); Bilirubin,Total 0.6 mg/dl (0.2-1.0); Calcium 9.7 mg/dl (8.6-10.3); Creatinine Clr Calc Pharmacy 75.6 ml/min; Globulin 2.6 gm/dl (2.5-4.0); Potassium 3.9 mmol/L (3.5-5.1); Total Protein 7.1 gm/dl (6.0-8.3)
[2024-11-03 02:31] LABS: Troponin I High Sensitivity 9.4 pg/ml (0-20)
--- NOTE | 2024-11-03 03:20 | CT Scan Report ---
EXAM: CT abd pelvis IV con only CLINICAL HISTORY: abd pain, ?obstruction TECHNIQUE: Contiguous axial images were obtained from the level of the diaphragm to the pubic symphysis without and with intravenous contrast. Coronal and sagittal reconstructions were likewise performed and indicated to increase the sensitivity for detecting clinically relevant pathology. If IV contrast material had not been administered, the likelihood of detecting abnormalities relevant to the patient's condition would have been substantially decreased. CT scan was performed according to ALARA (as low as reasonable achievable). COMPARISON: 07 December 2016 FINDINGS: The visualized lung bases are clear. The liver is normal in size and attenuation. Stable hepatic cyst is noted involving right lobe of liver. There is no intra or extrahepatic biliary ductal dilatation. Hepatic vasculature is patent. The gallbladder is present. The spleen, pancreas, and adrenal glands are unremarkable. The kidneys are normal in size and attenuation. There is no hydronephrosis or perinephric fat stranding. No renal calculi or renal masses are identified. The ureters are normal in caliber and no ureteral calculi are seen. The bladder is normal in contour. Pelvic viscera are unremarkable. Evidence of multiple dilated jejunal and proximal mid ileal loops are noted involving mid and lower quadrant of abdomen with maximum diameter measures about 4.2 cm - suggest possibility of intestinal obstruction Possible transition point is noted involving right lower quadrant with collapsed distal ileal loops - suggest possibility of adhesion/band. The appendix is visualized in the right lower quadrant and appears within normal limits. Abdominal and pelvic vasculature is patent. No adenopathy or fluid collections are seen. No aggressive appearing osseous lesions are identified. Minimal ascites. IMPRESSION: 1. Evidence of multiple dilated jejunal and proximal mid ileal loops are noted involving mid and lower quadrant of abdomen with maximum diameter measures about 4.2 cm - suggest possibility of intestinal obstruction. However the same findings were noted in previous scan dated, 12/07/2016, Suggested clinical correlation and follow up as indicated. 2. The possible transition point is noted involving right lower quadrant with collapsed distal ileal loops - suggest possibility of adhesion/band. 3. Minimal ascites noted.-Minimally increased. 4. Stable hepatic cyst. Electronically signed by Osbaldo Barros 11-03-2024 03:19 AM
--- NOTE | 2024-11-03 03:21 | Surgery Consultation ---
Date of Consultation November 03, 2024 Assessment & Plan (1) Hx SBO: I discussed with the treating emergency room physician patient admitted to the hospitalist service. From surgery perspective we recommend the following: Implement n.p.o. status Provide intravenous fluids for hydration I discussed with the patient that as he has had small bowel obstruction in the past that resolved in a conservative manner will help with elevated treat his current condition same manner. At the present time the patient is nontoxic-appearinghe is not hypotensive or tachycardic. He does not have fever, leukocytosis, acute kidney injury, or elevated lactic acid level and therefore I feel conservative measures are warranted I did discuss with the patient the possibility of utilizing an NG tubesince his abdomen is benign at this time and he has not had any nausea or vomiting several hours I feel we can hold on this modality, but did discuss with the patient that if his clinical condition deteriorates we will may need to use this modality Would recommend holding the patient's Eliquis until it is ascertained whether or not he will require any procedural intervention Additional recommendations will be forthcoming based on his clinical course as unfolds Supervising Physician Co-Signing Physician Notes Abdomen benign Will try to treat non-operatively History of Present Illness Reason for Consultation: Small bowel obstruction History of Present Illness This is a 79-year-old male who presented to the emergency department secondary to abdominal symptoms. Patient says over the past 1 to 2 days he developed some lower abdominal pain/cramping along with abdominal distention and episode of nausea and vomiting. He notes that he has had a small bowel obstruction in the past and felt that his symptoms were similar to what he experienced in the past and therefore presented to the emergency department. He notes his most recent bowel movement was approximately 24 hours ago and since his symptomatology began he has not been passing any flatus. He denies any radiation of the pain. He denies any fevers, shakes, or chills. He does note that he has had prior abdominal surgeryhe has had a prostatectomy (also had XRT) and he has also had exploratory surgery secondary to small bowel obstruction in the past but he could not provide any further details and is unsure if any bowel was resected. He also notes that since his abdominal surgeries he has had a small bowel obstruction that was able to be resolved with conservative measures. Patient also reports that he does take Eliquis with his most recent dose the evening of 11/02/2024. Since arrival to the emergency department he has had labs and imaging which I independent reviewed. CBC revealed white blood cell count was normal. His platelet count was 123,000. Hemoglobin and hematocrit were 13.9 and 39.2. Coagulation studies were normal. Chemistry profile showed sodium and potassium as well as the BUN and creatinine were normal. Lactic acid level was not elevated and normal at 1.2. A COVID test was noted to be negative. There is no elevation of LFTs or lipase. CT scan of the abdomen pelvis showed the patient had concern for possible small bowel obstruction.The patient was noted to have dilated jejunal and proximal mid ileal bowel loops in the lower abdomen. The interpreting radiologist noted that there appeared to be a transition point in the right lower quadrant suggesting the possibility of adhesions. Minimal ascites was noted in the abdomen. There is no evidence of appendicitis. At the time of my interview he was resting comfortably in bed he was in no distress. Allergies Allergy/AdvReac Type Severity Reaction Status Date / Time gabapentin AdvReac Unknown TOPICAL Verified 09/02/24 13:45 APPLICATION: redness, tissue sloughing Home Medications Medication Instructions Recorded Confirmed Type docusate sodium 100 mg capsule 200 mg PO TIDM 02/27/19 11/03/24 History psyllium husk 3.4 gram/5.4 gram 1 tbs PO BIDM 02/27/19 11/03/24 History oral powder (Metamucil) cholecalciferol (vitamin D3) 50 6,000 unit PO QAM 12/08/21 11/03/24 History mcg (2,000 unit) capsule vitamins A,C,T-wfhr-kzxbxs 4,296 1 cap PO BID 07/03/23 11/03/24 History mcg-226 mg-90 mg capsule (ICaps AREDS) apixaban 5 mg tablet (Eliquis) 5 mg PO BID #60 tabs 06/23/24 11/03/24 Rx Patient History Medical History History of proctitis Degenerative disc disease Spinal stenosis Arthritis History of prostate cancer DX 2012 OR 2013/SX INTERVENTION & HX RADIATION. Macular degeneration History of blood clots "MANY YEARS AGO CAUSED FROM AN IV INSERTION">REQUIRED TO TAKE INJECTION FOR SHORT PERIOD OF TIME. Hx SBO Malignant neoplasm of prostate Biopsy stage T2c [place] grade 3+3 Status post retropubic radical prostatectomy March 23, 2013 Pathologic stage [id number] [place] grade 4+3 Status post 6 months of hormone suppression Status post completion of salvage radiation therapy January 31, 2016. He received 7020 cGy Surgical History History of shoulder surgery RX1, LX1 History of left cataract surgery History of exploratory laparotomy History of right cataract surgery History of colonoscopy Fusion of spine LUMBAR FUSION History of surgery on lower extremity LEFT ACHILLES TENDON REPAIR History of lumbar laminectomy History of tonsillectomy History of detached retina repair ? SIDE S/P prostatectomy S/P inguinal hernia repair S/P hemorrhoidectomy Family History Father Emphysema, unspecified Mother Lung cancer Grandfather (Maternal) Coronary arteriosclerosis Grandmother Gastric cancer Other No family history of adverse response to anesthesia Denies family history of Colon cancer Ovarian cancer Prostate cancer Diabetes Myocardial infarction Breast cancer Social History Smoking Status: Never smoker Second Hand Exposure: No ( A CHILD); Do You Dip or Chew Tobacco: No; Hx Alcohol Use: No Hx Substance Use: No Preferred Language: Citizen Of [place] Communication Ability: Effective Visual Impairment: No Limitations Hearing Ability: Normal Fine Artist Required: No Beliefs That Will Affect Care: None marital status: Current Living Situation: Spouse current occupational status: retired Feels Safe at Home: Yes Safety Concerns: Feels Safe At This Time Childhood Exposure to Second-Hand Smoke: Yes Dental Care, Regularly: Yes Physical Activity Frequency: 3-4 Times per Week Seatbelt Use: always Sunscreen Use: Yes Assistive Devices: None Review of Systems Review of Systems: All systems reviewed & are unremarkable except as noted in HPI & below Physical Exam Constitutional: WD/WN, vitals as above Eyes: no conjunctival abnormality ENMT: Ears: no hearing impairment and no external ear abnormality Mouth: no oropharynx abnormality Neck: trachea midline Respiratory: normal respiratory effort; no respiratory distress and no labored breathing Cardiovascular: Rate/Rhythm: regular rate and regular rhythm Gastrointestinal (Abdomen): Abdomen is soft and is currently only noted to be minimally distended. There is no rebound tenderness or guarding. There is no tympany with percussion. There is minimal pain with palpation. The patient did have a well-healed midline incision inferior to the umbilicus. Musculoskeletal: No calf tenderness Skin: no rashes Neurologic: moves all extremities Psychiatric: A+Ox3, euthymic affect Results & Data Vital Signs (Past 12 Hours) Vital Signs Temp Pulse Resp BP Pulse Ox O2 Del Method 11/03/24 01:44 83 11/03/24 01:22 36.2 C L 78 16 180/77 H 100 Room Air PG Care Time/CCT Total # of Minutes Spent Total Time Spent with Patient: Total time spent is greater than 50% in coordination of care (as documented) at patient's floor/unit and/or counseling patient: Coding Level of Care Code 69740 INT INP/OBS CARE MIN Diagnoses Hx SBO Z87.19
--- NOTE | 2024-11-03 04:10 | History & Physical Report ---
Date of Service November 03, 2024 Assessment & Plan (1) Small bowel obstruction: (2) Atrial flutter: (3) History of prostate cancer: (4) Anemia, mild: (5) Thrombocytopenia: Plan Patient is a 79-year-old male with past medical history of a flutter on Eliquis, for lipidemia, spinal stenosis, prostate cancer s/p radiation and prostatectomy in 2012 history of small bowel obstructions resolved conservatively. He presented to the ED due to 1 to 2 days of abdominal pain and cramping along with distention, nausea, vomiting. He is being admitted for small bowel obstruction. #SBO History of small bowel obstructions resolved conservatively Previous surgeries of prostatectomy 2012 and ex lap 10/25 SBO Last bowel movement 11/01 CTAP showed evidence of intestinal obstruction similar to previous in 2017, along with possibility of adhesions and RLQ with collapsed distal ileal loops, m inimal ascites Surgery consulted Conservative measures unless symptomatically changes; defer NGT on admission N.p.o. Will hold patient's Eliquis - most recent dose evening 11/02/24 IVF resuscitation with NSS at 125 mL/hour Zofran as needed IV Tylenol as needed with 2mg/4 Mg morphine for breakthrough pain IV Protonix BID #A flutter/afib Follows with air and water tester Dr. Murray Hold Eliquis - convert to heparin anti-Xa ordered Not on any rate control medications as asymptomatic and rate is well-controlled Not in a flutter/fib on admission Chronic stable diagnoses: Anemia/thrombocytopenia - chronic, stable, at baseline HLD - no Tx at this time First-degree AV block - known history of, seen on admitting EKG, stable hx prostate ca - s/p radiation and prostatectomy in 2012, stable VTE ppx: SCDs, hold Eliquis with potential for surgical management - convert to Heparin IV (low dose, no bolus) Diet: NPO Dispo: med surg Admission and Anticipated Discharge Date Admission Date: 11/03/24 History of Present Illness Chief Complaint: abd pain Primary Care Provider: Fabian Leach MD Patient is a 79-year-old male with past medical history of a flutter on Eliquis, for lipidemia, spinal stenosis, prostate cancer s/p radiation and prostatectomy in 2012 history of small bowel obstructions resolved conservatively. He presented to the ED due to abdominal pain and nausea since 8 PM Saturday evening. He is being admitted for small bowel obstruction. Patient seen at bedside. He stated he has a history of small bowel obstructions having approximately 4 of them in the past. He is unsure of when his most recent one was but noted in his chart to be in 2016, patient agrees. He stated that he ate dinner normally and then around 8 PM developed diffuse a bdominal pain. On his way to the ED he developed nausea and distention but denies vomiting. He noted that the pain felt similar to previous obstruction so he came to the ED immediately. His last meal was 3 PM on Saturday and he last took his evening dose of Eliquis 11/02. Patient denies fever, chills, dyspnea, dyspnea on exertion, chest pain, diarrhea, constipation. His last bowel movement was Thursday 11/02 in the AM, no abnormalities, no blood in stool, no diarrhea. Patient noted he recently had flulike symptoms that began on September 30 and have been improving over the past 4 weeks. He has sinus congestion, cough, rhinorrhea. He also has been undergoing treatment for toenail fungus topically. Patient does not use nicotine products or drink alcohol. He denies past history of COPD or asthma, no history of DM. He does not use oxygen at baseline. He took his home medications this evening. He wishes to be full code at this time. Allergies Allergy/AdvReac Type Severity Reaction Status Date / Time gabapentin AdvReac Unknown TOPICAL Verified 09/02/24 13:45 APPLICATION: redness, tissue sloughing Home Medications Medication Instructions Recorded Confirmed Type docusate sodium 100 mg capsule 200 mg PO TIDM 02/27/19 11/03/24 History psyllium husk 3.4 gram/5.4 gram 1 tbs PO BIDM 02/27/19 11/03/24 History oral powder (Metamucil) cholecalciferol (vitamin D3) 50 6,000 unit PO QAM 12/08/21 11/03/24 History mcg (2,000 unit) capsule vitamins A,C,A-kxek-syswbg 4,296 1 cap PO BID 07/03/23 11/03/24 History mcg-226 mg-90 mg capsule (ICaps AREDS) apixaban 5 mg tablet (Eliquis) 5 mg PO BID #60 tabs 06/23/24 11/03/24 Rx Past Med/Surg History Problem List (Updated 11/03/24 @ 04:25 by Jabier Slaughter M.D.) SBO (small bowel obstruction) (Acute) History of prostate cancer DX 2012 OR 2014/SX INTERVENTION & HX RADIATION. Small bowel obstruction Thrombocytopenia Carpal tunnel syndrome, right Ulnar neuropathy at elbow of right upper extremity Cervical radiculopathy Anemia, mild First degree atrioventricular block by electrocardiogram Anticoagulant long-term use BURKETT (dyspnea on exertion) Atrial flutter Tinnitus, bilateral Sensorineural hearing loss of both ears Lumbar stenosis with neurogenic claudication Hyperlipidemia (Acute) Vitamin D deficiency Prostate cancer (Chronic) Change in hearing Elevated vitamin B12 level Encounter for pre-operative examination Eczema Screening for colon cancer Medical History History of proctitis Degenerative disc disease Spinal stenosis Arthritis History of prostate cancer DX 2012 OR 2014/SX INTERVENTION & HX RADIATION. Macular degeneration History of blood clots "MANY YEARS AGO CAUSED FROM AN IV INSERTION">REQUIRED TO TAKE INJECTION FOR SHORT PERIOD OF TIME. Hx SBO Malignant neoplasm of prostate Biopsy stage T2c [place] grade 3+3 Status post retropubic radical prostatectomy March 23, 2013 Pathologic stage [id number] [place] grade 4+3 Status post 6 months of hormone suppression Status post completion of salvage radiation therapy January 31, 2016. He recei ines 7020 cGy Surgical History History of shoulder surgery RX1, LX1 History of left cataract surgery History of exploratory laparotomy History of right cataract surgery History of colonoscopy Fusion of spine LUMBAR FUSION History of surgery on lower extremity LEFT ACHILLES TENDON REPAIR History of lumbar laminectomy History of tonsillectomy History of detached retina repair ? SIDE S/P prostatectomy S/P inguinal hernia repair S/P hemorrhoidectomy Family History Father Emphysema, unspecified Mother Lung cancer Grandfather (Maternal) Coronary arteriosclerosis Grandmother Gastric cancer Other No family history of adverse response to anesthesia Denies family history of Colon cancer Ovarian cancer Prostate cancer Diabetes Myocardial infarction Breast cancer Social History Smoking Status: Never smoker Second Hand Exposure: No ( A CHILD); Do You Dip or Chew Tobacco: No; Hx Alcohol Use: No Hx Substance Use: No Preferred Language: [place]vian Communication Ability: Effective Visual Impairment: No Limitations Hearing Ability: Normal Inspector Insulation Required: No Beliefs That Will Affect Care: None marital status: Current Living Situation: Spouse current occupational status: retired Feels Safe at Home: Yes Safety Concerns: Feels Safe At This Time Childhood Exposure to Second-Hand Smoke: Yes Dental Care, Regularly: Yes Physical Activity Frequency: 3-4 Times per Week Seatbelt Use: always Sunscreen Use: Yes Assistive Devices: None Review of Systems Review of Systems: See HPI Physical Exam Physical Exam: The patient is awake, alert and oriented 3, well developed and well nourished, normocephalic and atraumatic, in no acute distress. Non-toxic appearing. HEENT- EOMI, mucous membranes moist. Hearing grossly intact. Heart-normal S1 and S2. No murmurs, rubs or gallops. Lungs-clear bilaterally, no respiratory distress, no accessory muscle use. Abdomen-normal bowel sounds and soft. No ascites noted. Non-tender. Extremities- no clubbing, cyanosis, or edema. Rheumatologic-normal range of motion. Psychiatric-normal affect. Results & Data Results & Data Vital Signs (Past 12 Hours) Vital Signs Temp Pulse Resp BP Pulse Ox O2 Del Method 11/03/24 01:44 83 11/03/24 01:22 36.2 C L 78 16 180/77 H 100 Room Air Laboratory Results Reviewed CBC, coag panel, CMP, lactate, troponin, COVID swab Diagnostic Findings reviewed CTAP Medications Administered EDZofran 4 Mg IV, morphine 4 Mg IV, NSS at 125 mL/hour ECG Additional Comments: sinus rhythm with first-degree AV block Rate 73 QTc 440 Code Status & VTE Plan Code Status full VTE Prophylaxis Plan VTE Prophylaxis will be ordered: Yes Supervising Physician Co-Signing Physician Notes Attending addendum: I have physically seen this patient, have supervised the SHABNAM's activities, and agree with the H&P unless as otherwise noted. Assessment and Plan: The patient is a 79-year-old male with past medical history including atrial flutter on Eliquis, hyperlipidemia, spinal stenosis, prostate cancer status post radiation and prostatectomy in 2012, and history of small bowel obstructions. He presents to the emergency department for 1 to 2 days of abdominal pain and cramping along with distention, nausea and vomiting. To be admitted for recurrent small bowel obstruction #Small bowel obstruction- History of previous bowel obstructions resolved conservatively Last bowel movement 2/ CT scan abdomen and pelvis with intestinal obstruction similar to previous in 2017, raising the possibility of adhesions General Surgery consulted N.p.o. NSS at 125 mL/h Zofran 4 mg IV every 6 hours as needed Protonix 40 mg IV twice daily Acetaminophen 1 g IV every 8 hours as needed for mild pain or fever Morphine 2/4 mg IV. Moderate to severe pain as noted Atrial flutter/fibrillation Chronic anticoagulation- Hold apixaban Placed on heparin IV low-dose no bolus Remaining orders and notations as noted PG Care Time/CCT Total # of Minutes Spent Total Time Spent with Patient: Total time spent is greater than 50% in coordination of care (as documented) at patient's floor/unit and/or counseling patient: Coding Level of Care Code 25456 INT INP/OBS CARE 3/75MIN Diagnoses Small bowel obstruction K56.609 Atypical atrial flutter I48.4 Atrial flutter type: atypical History of prostate cancer Z85.46 Anemia, mild D64.9 Thrombocytopenia D69.6 (2) Atrial flutter Atrial flutter type: atypical Qualified Code(s): I48.4 - Atypical atrial flutter
[2024-11-03] MEDS: SODIUM CHLORIDE 0.9% 1,000 ML IV SCH (04:19)
[2024-11-03 05:11] LABS: ANTI-Xa, UFH(UnfractionatedHep 0.19 IU/ml (0.3-0.7)
[2024-11-03] MEDS ORDERED: ONDANSETRON INJ 2 MG/ML 2 ML VIAL IV PRN (06:02)
[2024-11-03] MEDS ORDERED: MoRPHine SULFATE 4 MG/ML 1 ML CARP\\VIAL IV PRN (06:02)
[2024-11-03] MEDS: HEPARIN 25000 UNIT/500 ML D5W 25,000 UNITS/500 ML BAG IV SCH (07:25)
[2024-11-03] MEDS: Heparin IV Adult Wt-Based Low-Dose *NO* INITIAL Bolus Protocol IV STA (07:27)
[2024-11-03] MEDS: ACETAMINOPHEN 1,000 MG/100 ML VIAL IV PRN (07:28)
[2024-11-03 08:04] LABS: Appearance Urine Clear (Clear); Bacteria Urine Automated None Seen (None Seen); Bilirubin Urine Negative (Negative); Blood Urine Negative (Negative); Cast Urine Automated 0-2 /lpf (0-2); Color Urine Yellow; Epithelial Cell Urine Auto 0-2 /hpf (0-2); Glucose Urine UA Negative (Negative); Ketones Urine 2+ (Negative); Leukocyte Esterase Urine Negative (Negative); Nitrite Urine Negative (Negative); Protein Urine Trace (Negative); RBC Urine Automated 0-2 /hpf (0-2); Specific Gravity Urine > 1.045 (1.000-1.030); Urobilinogen Urine Negative (Negative); WBC Urine Automated 0-5 /hpf (0-5)
[2024-11-03] MEDS: PANTOprazole 40 MG/10 ML SYR IV SCH (08:55)
[2024-11-03] MEDS: MoRPHine SULFATE 2 MG/ML CARP IV PRN (12:10)
[2024-11-03 14:53] LABS: ANTI-Xa, UFH(UnfractionatedHep 0.44 IU/ml (0.3-0.7)
--- NOTE | 2024-11-03 16:43 | History & Physical Bridge Note ---
Date of Service November 03, 2024 History & Physical Bridge Note I have examined the patient, reviewed the History & Physical and in the interval since the performance of the History & Physical I have noted the following changes of clinical significance: Patient reports ongoing abdominal pain but no nausea. No flatus or bowel movement since admission. History and ROS otherwise reviewed Vitals reviewed Gen: AAOx3, NAD HEENT: Anicteric sclerae CV: RRR no mgr nl S1S2 Pulm: CTAB no wcr Abd: Hypoactive bowel sounds, soft, positive TTP diffusely but more in LLQ without guarding or rebound Ext: No edema Skin: No rashes, warm/dry Neuro: Full strength throughout 79-year-old male here with SBO, continue conservative management but if has nausea/vomiting or worsening abdominal pain or distention, place NG tube Continue IV fluids, IV Protonix, heparin drip and check antiten A levels
[2024-11-03 21:14] LABS: ANTI-Xa, UFH(UnfractionatedHep 0.45 IU/ml (0.3-0.7)
[2024-11-04] MEDS: KETOROLAC TROMETHAMINE 15 MG/ML VIAL IV ONE (00:08)
--- NOTE | 2024-11-04 05:39 | Electrocardiogram Report ---
Test Reason : Blood Pressure : */* mmHG Vent. Rate : 73 BPM Atrial Rate : 73 BPM P-R Int : 238 ms QRS Dur : 102 ms QT Int : 400 ms P-R-T Axes : 84 63 52 degrees QTcB Int : 440 ms Sinus rhythm with 1st degree A-V block Otherwise normal ECG When compared with ECG of 25-Aug-2024 10:10, Premature ventricular complexes are no longer Present Confirmed by Rafael Darden ([id number]) on 11/04/2024 5:39:15 AM Referred By: REFERRED SELF Confirmed By: Rafael Darden
--- NOTE | 2024-11-04 07:42 | Surgery Progress Note ---
Date of Service November 04, 2024 Assessment & Plan (1) SBO (small bowel obstruction): Plan: No flatus or BM , interm. abd cramping Abd soft TTP RLQ , VSS Continue PRN pain medication Encouraged ambulation TID Continue conservative tx NPO with IV fluids until return of bowel function Will follow Admission and Anticipated Discharge Date Admission Date: November 03, 2024 Supervising Physician Co-Signing Physician Notes No return of bowel function yet Will proceed with a PO contrast study tomorrow if he has no return of bowel function by then Subjective intermittent abd cramping , denies flatus , BM , N/V Review of Systems Constitutional: no fever and no chills Respiratory: no dyspnea Gastrointestinal: + abdominal pain; no nausea and no vomit ing Musculoskeletal: no muscle weakness Physical Exam Constitutional: cooperative and comfortable; no acute distress Respiratory: normal respiratory effort and able to speak in complete sentences; no respiratory distress Cardiovascular: Rate/Rhythm: regular rate Gastrointestinal (Abdomen): Percussion/Palpation: + abdomen tender (RLQ TTP ) and abdomen soft Results & Data Vital Signs (Past 12 Hours) Vital Signs Temp Pulse Resp BP Pulse Ox O2 Del Method 11/04/24 07:21 98.1 F 65 18 151/72 H 95 Room Air 11/03/24 20:39 99.0 F 68 17 136/78 97 Room Air PG Care Time/CCT Total # of Minutes Spent Total Time Spent with Patient: Total time spent is greater than 50% in coordination of care (as documented) at patient's floor/unit and/or counseling patient: Coding Level of Care Code 02545 SUB INP/OBS CARE 10/17MIN Diagnoses SBO (small bowel obstruction) K56.609
[2024-11-04 08:36] LABS: Hematocrit (blood only) 32.8 % (42.0-52.0); Hemoglobin 11.5 g/dl (14.0-18.0); Mean Corpuscular Hemoglobin 31.5 pg (25.0-34.0); Mean Corpuscular Hgb Conc 35.1 g/dL (32.0-36.0); Mean Corpuscular Volume 89.9 fL (80.0-100.0); Mean Platelet Volume 11.6 fL (9.4-12.4); Platelet Count 95 K/uL (130-400); RDW Coefficient of Variation 12.9 % (11.5-14.5); RDW Standard Deviation 42.5 fL (36.4-46.3); Red Blood Count 3.65 M/uL (4.70-6.10)
[2024-11-04 08:37] LABS: Basophils # (auto) 0.01 K/uL (0.00-0.20); Basophils % (auto) 0.2 %; Eosinophils # (auto) 0.07 K/uL (0.00-0.50); Eosinophils % (auto) 1.6 %; Immature Granulocytes # (auto) 0.03 K/uL (0.01-0.20); Immature Granulocytes % (auto) 0.7 %; Lymphocytes # (auto) 0.28 K/uL (1.20-3.40); Lymphocytes % (auto) 6.2 %; Monocytes # (auto) 0.47 K/uL (0.11-0.59); Monocytes % (auto) 10.4 %; Neutrophils # (auto) 3.64 K/uL (1.40-6.50); Neutrophils % (auto) 80.9 %; Platelet Estimate Decreased (Normal)
[2024-11-04 08:38] LABS: Albumin Globulin Ratio 1.6 (0.9-2); Albumin Level 3.4 gm/dl (3.4-5.0); BUN Creatinine Ratio 22.7 (10-20); Bilirubin,Total 0.9 mg/dl (0.2-1.0); Creatinine Clr Calc Pharmacy 99.6 ml/min; Globulin 2.1 gm/dl (2.5-4.0); Potassium 3.8 mmol/L (3.5-5.1); Total Protein 5.5 gm/dl (6.0-8.3)
[2024-11-04 09:48] LABS: ANTI-Xa, UFH(UnfractionatedHep 0.35 IU/ml (0.3-0.7)
--- NOTE | 2024-11-04 20:30 | Hospitalist Progress Note ---
Date of Service November 04, 2024 Assessment & Plan (1) Small bowel obstruction: (2) Atrial flutter: (3) Anemia, mild: (4) Thrombocytopenia: Plan Patient is a 79-year-old male with a h/o atrial flutter on Eliquis,HLD, spinal stenosis, prostate cancer s/p radiation and prostatectomy in 2012 history of SBOs who p/w 1 to 2 days of abdominal pain and cramping along with distention, nausea, vomiting-found to have SBO #SBO-with a h/o 8 SBOs. Likely 2/2 adhesions from previous prostatectomy and radiation tx, required ex lap 2/2 SBO in past. Last bowel movement 11/01. CTAP showed evidence of intestinal obstruction similar to previous in 2017, along with possibility of adhesions and RLQ with collapsed distal ileal loops, minimal ascites. No NGT placed as not vomiting. Passed very small amount flatus on evening of 11/04 Appreciate Gen Surgery management -continue IVFs, NPO -plan for SBFT on 11/05 if not resolving -pain control prn -with low grade temp on 11/04-check repeat CBC -place NGT if has nausea or vomiting, worsening pain or distension -continue IV Protonix BID #A flutter/afib-in NSR here on ECG and by exam. Follows with computer networking instructor Dr. Murray. Not on any rate control medications as asymptomatic and rate is well- controlled -continue to hold Eliquis - on heparin gtt while NPO #Pancytopenia-mild, developing over the last 1-2 years. Plts acutely worse now in the 90s. Normocytic anemia. Followed regularly by PCP. -check B12, folate, Fe studies -follow CBC #hx prostate ca - s/p radiation and prostatectomy in 2012, stable DVT proph-heparin gtt Dispo-continued stay Admission and Anticipated Discharge Date Admission Date: November 03, 2024 Subjective Pt seen in the evening and said he just had a very tiny amount of flatus, no stool. Was having some severe cramping that is now improving and feels like gas is headed towards his bottom. No nausea. Is concerned because he had a low grade fever just a little bit ago. Physical Exam Constitutional: WD/WN, vitals as above Respiratory: normal respiratory effort, lungs clear to auscultation Cardiovascular: RRR, no murmur, no edema Gastrointestinal (Abdomen): Inspection/Auscultation: abdomen normal to inspection and normal bowel sounds; abdomen not distended Percussion/Palpation: + abdomen tender (mild in RLQ without guarding or rebound) and abdomen soft Psychiatric: A+Ox3, euthymic affect Results & Data Results & Data Vital Signs (Past 12 Hours) Vital Signs Temp Pulse Resp BP BP Pulse Ox O2 Del Method 11/04/24 20:27 37.3 C 80 18 151/71 H 95 Room Air 11/04/24 15:34 36.9 C 73 17 144/74 H 94 Room Air Laboratory Results CBC, BMP,mag, LFTs reviewed PG Care Time/CCT Total # of Minutes Spent Total Time Spent with Patient: Total time spent is greater than 50% in coordination of care (as documented) at patient's floor/unit and/or counseling patient: Coding Level of Care Code 26603 SUB INP/OBS CARE 2/35MIN Diagnoses Small bowel obstruction K56.609 Atypical atrial flutter I48.4 Atrial flutter type: atypical Anemia, mild D64.9 Thrombocytopenia D69.6 (2) Atrial flutter Atrial flutter type: atypical Qualified Code(s): I48.4 - Atypical atrial flutter
[2024-11-04 21:24] LABS: Basophils # (auto) 0.01 K/uL (0.00-0.20); Basophils % (auto) 0.2 %; Eosinophils # (auto) 0.03 K/uL (0.00-0.50); Eosinophils % (auto) 0.7 %; Hematocrit (blood only) 31.9 % (42.0-52.0); Hemoglobin 11.1 g/dl (14.0-18.0); Immature Granulocytes # (auto) 0.02 K/uL (0.01-0.20); Immature Granulocytes % (auto) 0.5 %; Lymphocytes # (auto) 0.23 K/uL (1.20-3.40); Lymphocytes % (auto) 5.7 %; Mean Corpuscular Hemoglobin 31.3 pg (25.0-34.0); Mean Corpuscular Hgb Conc 34.8 g/dL (32.0-36.0); Mean Corpuscular Volume 89.9 fL (80.0-100.0); Mean Platelet Volume 11.4 fL (9.4-12.4); Monocytes # (auto) 0.37 K/uL (0.11-0.59); Monocytes % (auto) 9.1 %; Neutrophils % (auto) 83.8 %; Platelet Count 89 K/uL (130-400); RDW Coefficient of Variation 12.9 % (11.5-14.5); RDW Standard Deviation 42.5 fL (36.4-46.3); Red Blood Count 3.55 M/uL (4.70-6.10); White Blood Count 4.06 K/ul (4.8-10.8)
[2024-11-05 07:20] LABS: Basophils # (auto) 0.01 K/uL (0.00-0.20); Basophils % (auto) 0.4 %; Eosinophils # (auto) 0.02 K/uL (0.00-0.50); Eosinophils % (auto) 0.9 %; Hemoglobin 10.3 g/dl (14.0-18.0); Immature Granulocytes # (auto) 0.01 K/uL (0.01-0.20); Immature Granulocytes % (auto) 0.4 %; Lymphocytes # (auto) 0.22 K/uL (1.20-3.40); Lymphocytes % (auto) 9.9 %; Mean Corpuscular Hemoglobin 31.1 pg (25.0-34.0); Mean Corpuscular Hgb Conc 34.3 g/dL (32.0-36.0); Mean Corpuscular Volume 90.6 fL (80.0-100.0); Mean Platelet Volume 11.6 fL (9.4-12.4); Monocytes # (auto) 0.31 K/uL (0.11-0.59); Monocytes % (auto) 13.9 %; Neutrophils # (auto) 1.66 K/uL (1.40-6.50); Neutrophils % (auto) 74.5 %; Platelet Count 90 K/uL (130-400); RDW Coefficient of Variation 12.8 % (11.5-14.5); Red Blood Count 3.31 M/uL (4.70-6.10); White Blood Count 2.23 K/ul (4.8-10.8)
[2024-11-05 07:47] LABS: Albumin Globulin Ratio 1.6 (0.9-2); Albumin Level 3.1 gm/dl (3.4-5.0); BUN Creatinine Ratio 20.3 (10-20); Bilirubin,Total 0.7 mg/dl (0.2-1.0); Calcium 7.6 mg/dl (8.6-10.3); Creatinine Clr Calc Pharmacy 95.3 ml/min; Globulin 1.9 gm/dl (2.5-4.0); Magnesium 1.8 mg/dl (1.7-2.4); Phosphorus 2.5 mg/dl (2.5-4.9); Potassium 3.7 mmol/L (3.5-5.1)
[2024-11-05 07:57] LABS: ANTI-Xa, UFH(UnfractionatedHep 0.27 IU/ml (0.3-0.7)
[2024-11-05 08:06] LABS: Ferritin 245.4 ng/ml (8-388)
[2024-11-05 08:09] LABS: Folate (Folic Acid),Ser orPlas 16.54 ng/ml (>5.38)
--- NOTE | 2024-11-05 10:12 | Surgery Progress Note ---
Date of Service November 05, 2024 Assessment & Plan (1) SBO (small bowel obstruction): Plan: Trial clear liquids for today No plans for surgical intervention at this time Will follow Admission and Anticipated Discharge Date Admission Date: November 03, 2024 Subjective Pt seen and examined. Pain improved. Had 2 decent BM's. No N/V. Afebrile. Review of Systems Constitutional: no fever and no chills Eyes: no blind spots and no corrective lenses Ear, Nose, Mouth, Throat: no ear pain and no hearing loss Respiratory: no cough and no dyspnea Cardiovascular: no chest pain and no dyspnea on exertion Gastrointestinal: no abdominal pain, no nausea and no vomiting Genitourinary: no dysuria or no nocturia Musculoskeletal: no back pain and no neck pain Integumentary: no acne, no skin ulcer and no erythema Neurologic: no gait abnormality and no paresthesia Psychiatric: no behavioral changes and no depression Hematologic / Lymphatic: no easy bleeding and no easy bruising Physical Exam Constitutional: WD/WN, vitals as above Eyes: PERRL, conjunctivae normal, anicteric sclerae Respiratory: normal respiratory effort, lungs clear to auscultation Cardiovascular: RRR, no murmur, no edema Gastrointestinal (Abdomen): Inspection/Auscultation: abdomen normal to inspection; abdomen not distended Percussion/Palpation: + abdomen tender (mild right sided, improved from yesterday) and abdomen soft Skin: no rashes, warm and dry Psychiatric: A+Ox3, euthymic affect Results & Data Vital Signs (Past 12 Hours) Vital Signs Temp Pulse Resp BP Pulse Ox O2 Del Method 11/05/24 07:13 37.4 C 73 14 118/55 L 94 Room Air 11/04/24 22:19 36.9 C PG Care Time/CCT Total # of Minutes Spent Total Time Spent with Patient: Total time spent is greater than 50% in coordination of care (as documented) at patient's floor/unit and/or counseling patient: Coding Level of Care Code 05768 SUB INP/OBS CARE 10/17MIN Diagnoses SBO (small bowel obstruction) K56.609
--- NOTE | 2024-11-05 15:30 | Hospitalist Progress Note ---
Date of Service November 05, 2024 Assessment & Plan (1) Small bowel obstruction: (2) Atrial flutter: (3) Anemia, mild: (4) Thrombocytopenia: Plan Patient is a 79-year-old male with a h/o atrial flutter on Eliquis,HLD, spinal stenosis, prostate cancer s/p radiation and prostatectomy in 2012 history of SBOs who p/w 1 to 2 days of abdominal pain and cramping along with distention, nausea, vomiting-found to have SBO #SBO-with a h/o 8 SBOs. Likely 2/2 adhesions from previous prostatectomy and radiation tx, required ex lap in past. CTAP showed evidence of intestinal obstruction similar to previous in 2017, along with possibility of adhesions in RLQ with collapsed distal ileal loops, minimal ascites. No NGT placed as not vomiting. Is now having BMs as of the evening of 11/04 and passing flatus, much improved, minimal abdominal distention Appreciate Gen Surgery management -Advance diet to clears, discontinue IV fluids -No need for SBFT at this point -pain control prn -with low grade temp on 11/04-check repeat CBC-no leukocytosis -place NGT if has nausea or vomiting, worsening pain or distension but seems unlikely at this point -continue IV Protonix BID -Follow CBC, BMP, magnesium, phosphorus in the morning and replace electrolytes as needed #A flutter/afib-in NSR here on ECG and by exam. Follows with rn appeals Dr. Murray. Not on any rate control medications as asymptomatic and rate is well- controlled -continue to hold Eliquis - on heparin gtt until reliably taking p.o. #Pancytopenia-mild, developing over the last 1-2 years. Plts acutely worse now in the 90s. Normocytic anemia. Followed regularly by PCP. B12 is borderline low/low normal, folate and iron studies normal. TSH normal in 12/2023 -No transfusional support necessary -He already recently started taking a B12 p.o supplement at home and he will continue with such after discharge -follow CBC -Recommend referral to hematology as an outpatient for workup for MDS -Check TSH #hx prostate ca - s/p radiation and prostatectomy in 2012, stable DVT proph-heparin gtt Dispo-continued stay, but hopeful for discharge home tomorrow if tolerates advancing diet Admission and Anticipated Discharge Date Admission Date: November 03, 2024 Anticipated date of discharge: 11/06/24 Subjective Patient had a bowel movement last night and 2 more bowel movements this morning, passing flatus. Still feels a little distended in the abdomen but no pain. Denies nausea or vomiting. Has been ambulating the halls. No other concerns Discussed his care with his at the bedside Physical Exam Constitutional: WD/WN, vitals as above Respiratory: normal respiratory effort, lungs clear to auscultation Cardiovascular: RRR, no murmur, no edema Gastrointestinal (Abdomen): Inspection/Auscultation: abdomen normal to inspection, + abdomen distended (Mild) and normal bowel sounds Percussion/Palpation: + abdomen tender (mild in RLQ without guarding or rebound) and abdomen soft Psychiatric: A+Ox3, euthymic affect Results & Data Results & Data Vital Signs (Past 12 Hours) Vital Signs Temp Pulse Resp BP Pulse Ox O2 Del Method 11/05/24 11:21 36.7 C 75 16 116/58 L 94 Room Air 11/05/24 07:13 37.4 C 73 14 118/55 L 94 Room Air Laboratory Results CBC, CMP, magnesium, phosphorus, iron studies, B12 and folate reviewed PG Care Time/CCT Total # of Minutes Spent Total Time Spent with Patient: Total time spent is greater than 50% in coordination of care (as documented) at patient's floor/unit and/or counseling patient: Coding Level of Care Code 69802 SUB INP/OBS CARE 2/35MIN Diagnoses Small bowel obstruction K56.609 Atypical atrial flutter I48.4 Atrial flutter type: atypical Anemia, mild D64.9 Thrombocytopenia D69.6 (2) Atrial flutter Atrial flutter type: atypical Qualified Code(s): I48.4 - Atypical atrial flutter
[2024-11-05 15:47] LABS: ANTI-Xa, UFH(UnfractionatedHep 0.34 IU/ml (0.3-0.7)
[2024-11-05 15:50] VITALS: RESP 18
[2024-11-06 07:42] VITALS: PULSE 60
--- NOTE | 2024-11-06 08:23 | Surgery Progress Note ---
Date of Service November 06, 2024 Assessment & Plan (1) SBO (small bowel obstruction): Plan: Advance to full liquids, then to low fiber if he tolerates this No plans for surgical intervention at this time Will follow Tentative plan for discharge later today versus tomorrow clinical progress Admission and Anticipated Discharge Date Admission Date: November 03, 2024 Subjective Patient seen and examined. Denies abdominal pain. Denies nausea or vomiting. Passing flatus. Had a couple more small bowel movements. Afebrile. Review of Systems Constitutional: no fever and no chills Eyes: no blind spots and no corrective lenses Ear, Nose, Mouth, Throat: no ear pain and no hearing loss Respiratory: no cough and no dyspnea Cardiovascular: no chest pain and no dyspnea on exertion Gastrointestinal: no abdominal pain, no nausea and no vomiting Genitourinary: no dysuria or no nocturia Musculoskeletal: no back pain and no neck pain Integumentary: no acne, no skin ulcer and no erythema Neurologic: no gait abnormality and no paresthesia Psychiatric: no behavioral changes and no depression Hematologic / Lymphatic: no easy bleeding and no easy bruising Physical Exam Constitutional: WD/WN, vitals as above Eyes: PERRL, conjunctivae normal, anicteric sclerae Respiratory: normal respiratory effort, lungs clear to auscultation Cardiovascular: RRR, no murmur, no edema Gastrointestinal (Abdomen): Inspection/Auscultation: abdomen normal to inspection; abdomen not distended Percussion/Palpation: abdomen soft; abdomen nontender Skin: no rashes, warm and dry Psychiatric: A+Ox3, euthymic affect Results & Data Vital Signs (Past 12 Hours) Vital Signs Temp Pulse Resp BP Pulse Ox O2 Del Method 11/06/24 07:40 36.9 C 60 18 131/56 L 95 Room Air 11/05/24 22:28 37.0 C 67 18 125/64 94 Room Air PG Care Time/CCT Total # of Minutes Spent Total Time Spent with Patient: Total time spent is greater than 50% in coordination of care (as documented) at patient's floor/unit and/or counseling patient: Coding Level of Care Code 09953 SUB INP/OBS CARE 10/17MIN Diagnoses SBO (small bowel obstruction) K56.609
[2024-11-06 08:41] LABS: Basophils # (auto) 0.01 K/uL (0.00-0.20); Basophils % (auto) 0.5 %; Eosinophils # (auto) 0.07 K/uL (0.00-0.50); Eosinophils % (auto) 3.7 %; Hematocrit (blood only) 28.2 % (42.0-52.0); Hemoglobin 9.6 g/dl (14.0-18.0); Immature Granulocytes # (auto) 0.02 K/uL (0.01-0.20); Immature Granulocytes % (auto) 1.1 %; Lymphocytes # (auto) 0.41 K/uL (1.20-3.40); Lymphocytes % (auto) 21.6 %; Mean Corpuscular Hemoglobin 30.4 pg (25.0-34.0); Mean Corpuscular Volume 89.2 fL (80.0-100.0); Mean Platelet Volume 12.3 fL (9.4-12.4); Monocytes # (auto) 0.37 K/uL (0.11-0.59); Monocytes % (auto) 19.5 %; Neutrophils # (auto) 1.02 K/uL (1.40-6.50); Neutrophils % (auto) 53.6 %; Platelet Count 76 K/uL (130-400); RDW Coefficient of Variation 12.9 % (11.5-14.5); RDW Standard Deviation 42.5 fL (36.4-46.3); Red Blood Count 3.16 M/uL (4.70-6.10); Reticulocyte % 1.51 % (0.50-2.00)
[2024-11-06 09:08] LABS: Polychromasia 1+
[2024-11-06 09:14] LABS: BUN Creatinine Ratio 17.4 (10-20); Calcium 7.6 mg/dl (8.6-10.3); Creatinine Clr Calc Pharmacy 95.3 ml/min; Magnesium 1.8 mg/dl (1.7-2.4); Phosphorus 3.2 mg/dl (2.5-4.9); Potassium 3.3 mmol/L (3.5-5.1)
[2024-11-06 09:28] LABS: Thyroid Stimulating Hormone 3.252 uIu/ml (0.300-4.500)
[2024-11-06] MEDS: POTASSIUM CHLORIDE CRTAB 20 MEQ TABCR PO STA (10:58)
[2024-11-06 15:16] VITALS: BP 155/76; TEMP 98.2; O2SAT 96
--- NOTE | 2024-11-06 18:40 | Discharge Summary ---
Discharge Summary Date of Service November 06, 2024 Principal Dx & Hospital Course #1 = Principal Diagnosis (1) Small bowel obstruction: (2) Atrial flutter: (3) Anemia, mild: (4) Thrombocytopenia: Plan Patient is a 79-year-old male with a h/o atrial flutter on Eliquis,HLD, spinal stenosis, prostate cancer s/p radiation and prostatectomy in 2012 history of SBOs who p/w 1 to 2 days of abdominal pain and cramping along with distention, nausea, vomiting-found to have SBO #SBO-with a h/o 8 SBOs. Likely 2/2 adhesions from previous prostatectomy and radiation tx, required ex lap in past. CTAP showed evidence of intestinal obstruction similar to previous in 2017, along with possibility of adhesions in RLQ with collapsed distal ileal loops, minimal ascites. No NGT placed as not vomiting. With conservative management, patient began having bowel movements, passing flatus, and diet was advanced to low fiber. He was doing very well and was stable for discharge on 11/06 Appreciate Gen Surgery management Encouraged bowel regimen and elimination of Metamucil from his medication regimen for at least the next 2 weeks. Add MiraLAX or prune juice in addition to docusate #A flutter/afib-in NSR here on ECG and by exam. Follows with amphibious operations officer Dr. Murray. Not on any rate control medications as asymptomatic and rate is well- controlled -Held Eliquis and was placed on heparin drip while admitted-can resume Eliquis on discharge #Pancytopenia-mild, developing over the last 1-2 years. Plts acutely worse now in the 70s-90s. Normocytic anemia. Followed regularly by PCP. B12 is borderline low/low normal, folate and iron studies normal. TSH normal. Peripheral smear cannot exclude MDS -No transfusional support necessary -He already recently started taking a B12 p.o supplement at home and he will continue with such after discharge -follow CBC in 2 weeks as an outpatient -Recommend referral to hematology as an outpatient for workup for MDS #hx prostate ca - s/p radiation and prostatectomy in 2012, stable DVT proph-heparin gtt Dispo-much improved, stable for discharged home Notes For Next Care Provider Follow-up CBC in 2 weeks, consider hematology referral Medication Changes From Visit Added MiraLAX 17 g p.o. once daily Hold Metamucil for 2 weeks Admission HPI Per Admitting Provider Patient is a 79-year-old male with past medical history of a flutter on Eliquis, for lipidemia, spinal stenosis, prostate cancer s/p radiation and prostatectomy in 2012 history of small bowel obstructions resolved conservatively. He presented to the ED due to abdominal pain and nausea since 8 PM Saturday evening. He is being admitted for small bowel obstruction. Patient seen at bedside. He stated he has a history of small bowel obstructions having approximately 4 of them in the past. He is unsure of when his most recent one was but noted in his chart to be in 2017, patient agrees. He stated that he ate dinner normally and then around 8 PM developed diffuse abdominal pain. On his way to the ED he developed nausea and distention but denies vomiting. He noted that the pain felt similar to previous obstruction so he came to the ED immediately. His last meal was 3 PM on Saturday and he last took his evening dose of Eliquis 11/02. Patient denies fever, chills, dyspnea, dyspnea on exertion, chest pain, diarrhea, constipation. His last bowel movement was Thursday 11/02 in the AM, no abnormalities, no blood in stool, no diarrhea. Patient noted he recently had flulike symptoms that began on September 30 and have been improving over the past 4 weeks. He has sinus congestion, cough, rhinorrhea. He also has been undergoing treatment for toenail fungus topically. Patient does not use nicotine products or drink alcohol. He denies past history of COPD or asthma, no history of DM. He does not use oxygen at baseline. He took his home medications this evening. He wishes to be full code at this time. Discharge Exam Constitutional WD/WN, vitals as above Respiratory normal respiratory effort, lungs clear to auscultation Cardiovascular RRR, no murmur, no edema Gastrointestinal (Abdomen) normal bowel sounds, soft, nontender, no hepatosplenomegaly Psychiatric A+Ox3, euthymic affect Discharge Plan Discharge Items Patient Disposition: Home - Self-Care Reason For Visit: SBO Discharge Diagnosis: Small bowel obstruction Condition on Discharge: Good Activity: Resume your previous activity Non-emergency contact: Primary Care Provider Call non-emergency contact if: you have any medication questions, your symptoms worsen and your pain is not controlled Follow-up/Referrals: Fabian Leach MD [Primary Care Provider] - (Follow-up within 1 to 2 weeks) Sabiha Hurd MD [Physician] - (Please call the composing machine operator/tender's office to schedule an appointment after you discuss with your PCP.) Diet: Low Fiber Addtl Attending Provider Instructions: Please continue eating a low fiber diet as we discussed for the next 2 weeks. It is important to keep your bowels moving at least once or twice a day. You can take MiraLAX or prune juice in addition to your stool softener. Hold off on taking your Metamucil for the next 2 weeks. Your blood counts are all slightly low. Please follow-up with Dr. Leach and repeat your complete blood count in 2 weeks. It is recommended that you be evaluated by composing machine operator/tender for this issue. Pending Studies at Discharge: No Stand-Alone Forms: My [facility] Medications and DC Order Prescriptions: New polyethylene glycol 3350 [Miralax] 17 gram/dose powder 17 g PO DAILY Qty: 119 0RF Continued Eliquis 5 mg tablet 5 mg PO BID Qty: 60 5RF docusate sodium 100 mg capsule 200 mg PO TIDM cholecalciferol (vitamin D3) 50 mcg (2,000 unit) capsule 6,000 unit PO QAM ICaps AREDS 4,296 mcg-226 mg-90 mg capsule 1 cap PO BID Held Metamucil 3.4 gram/5.4 gram powder 1 tbs PO BIDM Hold Instructions: Resume on 11/20/24. Discharge Orders: Discharge Order (Routine); Ordered 11/06/24 Ordered By: Sharee Owen Admission Data Admit Date/Time: 11/03/24 04:42 Attending Provider: Sharee Owen Admit Provider: Blair Carrasquillo Primary Care Provider: Fabian Leach Other Providers: Blair Carrasquillo; Deepak Duffy Hospital Stay Data Consultations 11/03/24 04:13 ED Decision to Admit Stat 11/03/24 04:43 Consult General Surgery Routine Diagnostic Imagining Performed 11/03/24 01:30 CT abd pelvis IV con only Stat Pending Results Patient Have Any Pending Studies at Discharge: No Discharge Instructions Given to Patient (Per Discharging Provider) Please continue eating a low fiber diet as we discussed for the next 2 weeks. It is important to keep your bowels moving at least once or twice a day. You can take MiraLAX or prune juice in addition to your stool softener. Hold off on taking your Metamucil for the next 2 weeks. Your blood counts are all slightly low. Please follow-up with Dr. Leach and repeat your complete blood count in 2 weeks. It is recommended that you be evaluated by composing machine operator/tender for this issue. Total Time Total Time Spent Total Time Spent (In Minutes): 40 minutes Total Time Includes: Examination of the Patient, Discharge Planning and Medication Reconciliation Coding Level of Care Code 95900 INP/OBS DISCH >30 MIN Diagnoses Small bowel obstruction K56.609 Atypical atrial flutter I48.4 Atrial flutter type: atypical Anemia, mild D64.9 Thrombocytopenia D69.6
== END 2024-11-06 19:27 | disposition home or self-care (01) | DRG 389 ==
LOC: ED 01:20 → EDINP 04:42 → SUATTDRO 04:42 → 3W 06:02